=== PATIENT | female | born 1935 | race Caucasian/White ===

== ENCOUNTER → 2018-06-18 10:31 | Outpatient (CLI) | payer MEDICARE, OTHER, SELFPAY ==
[2018-06-18 11:55] LABS: Add Manual Diff / Slide Review NO; Basophils Absolute Auto 0 /uL (0-100); Basophils Percent Auto 0.6 % (0-2); Eosinophils Absolute Auto 100 /uL (0-450); Eosinophils Percent Auto 2.4 % (2-4); Hematocrit 38.8 % (36-46); Lymphocytes Absolute Auto 1800 /uL (1100-4500); Lymphocytes Percent Auto 28.7 % (25-40); Mean Corpuscular HGB Conc 33.6 % (30-36); Mean Corpuscular Hemoglobin 30.2 PG (26-34); Monocytes Absolute Auto 500 /uL (0-900); Monocytes Percent Auto 7.8 % (3-14); Neutrophils Absolute Auto 3700 /uL (1500-7000); Neutrophils Percent Auto 60.5 % (50-75); Platelet Count 206 X10^3/uL (150-400); Red Blood Cell Count 4.31 X10^6/uL (4.0-5.2); Red Cell Distribution Width 13.8 % (11.6-14.8); White Blood Cell Count 6.1 X10^3/uL (4.5-11.0)
[2018-06-18 12:46] LABS: Alanine Aminotransferase 37 IU/L (9-52); Albumin 4.2 g/dL (3.5-5.0); Albumin Globulin Ratio 1.5 (1.0-2.8); Alkaline Phosphatase 59 U/L (38-126); Aspartate Aminotransferase 24 IU/L (14-36); BUN Creatinine Ratio 34.3 (6-22); Bilirubin Total 0.6 mg/dL (0.2-1.3); Blood Urea Nitrogen 24 mg/dL (7-17); Calcium 10.2 mg/dL (8.4-10.2); Carbon Dioxide 27 mmol/L (22-32); Chloride 101 mmol/L (98-107); Cholesterol 208 mg/dL (140-199); Estimated Glomerular Filt Rate > 60.0 mL/min (>60); Globulin 2.8 g/dL (1.7-4.1); Glucose 90 mg/dL (80-110); HDL Cholesterol 71 mg/dL (40-60); HEMOLYSIS < 15 (0-50); LDL Cholesterol Calculated 126 mg/dL (<100); Sodium 138 mmol/L (137-145); Triglycerides 56 mg/dL (35-150)
[2018-06-18 13:18] LABS: Thyroid Stimulating Hormone 0.62 uIU/mL (0.47-4.68)
== END ==
PROVIDERS: PCP Physician Assistant; Visit Provider Physician Assistant
DX: I48.91 Unspecified atrial fibrillation (principal); E03.9 Hypothyroidism, unspecified; E78.5 Hyperlipidemia, unspecified
CPT/HCPCS: 36415; 80053; 80061; 84443; 85025

== ENCOUNTER 2018-07-26 07:21 | Emergency (ER) | payer MEDICARE, OTHER, SELFPAY ==
[2018-07-26 07:30] VITALS: BP 105/76; PULSE 73; RESP 18; TEMP 36.6; O2SAT 100
--- NOTE | 2018-07-26 07:31 | DI.RAD.S_ITS ---
PROCEDURE: XR CHEST 1V INDICATIONS: sob, lightheaded, afib ? paroxsymal TECHNIQUE: One view of the chest was acquired. COMPARISON: None. FINDINGS: Surgical changes and devices: None. Lungs and pleura: Lungs are clear. No pleural effusions or pneumothorax. Hyperinflation is seen. Mediastinum: Mediastinal contours appear normal. Heart size is enlarged. Bones and chest wall: No suspicious bony lesions. Overlying soft tissues appear unremarkable. IMPRESSION: No acute cardiopulmonary pathology. Hyperinflation. Dictated by: Chad Pitt M.D. on 07/26/2018 at 8:18 Approved by: Chad Pitt M.D. on 07/26/2018 at 8:19
--- NOTE | 2018-07-26 07:35 | ED_ITS ---
HPI - SOB/Dyspnea General Chief Complaint: Shortness of Breath/Dyspnea Stated Complaint: SOB Time Seen by Provider: 07/26/18 07:31 Source: patient, EMS and old records reviewed Mode of arrival: EMS Limitations: no limitations History of Present Illness This is an 82-year-old female who comes to the emergency department with complaint of shortness of breath and dizziness. She states started yesterday in the evening fairly sudden onset. Patient states she feels a little short of breath when she uses her inhaler does help. She states she has a history of asthma. She also felt lightheaded like she might pass out. She states she sort of see stars. Patient states that she has not passed out. She denies any chest pain or pressure. She denies any nausea, vomiting. She has not been stooling as regularly but has been having bowel movements. She states it seemed a little hard to urinate today. Patient states that she feels like there is a flush over her intermittently during these episodes and sort of tingly in her face. She does have known atrial fibrillation, there has been discussed about an ablation but she has never had 1 before. She is on Eliquis, flecainide. She is also on levothyroxine and metoprolol. She has not had any fevers that she is aware. She denies other surgeries. She does not smoke, she does not drink any alcohol. She lives alone. Yesterday she was visiting family and had returned home when this started. Patient's roofing technician is Dr. Chavira in [place], Mimi Aldana is her primary care provider. Related Data Home Medications Medication Instructions Recorded Confirmed [VITAMIN D3] 2,000 iu PO QDAY #0 09/18/16 05/11/18 aspirin 81 mg PO QDAY #0 09/18/16 05/11/18 metoprolol tartrate 25 mg PO BID #0 09/18/16 05/11/18 multivitamin [Multiple Vitamins] 1 tab PO QDAY #0 09/18/16 05/11/18 albuterol sulfate HFA 90 2 puff INHALATION BID PRN gram 09/29/17 05/11/18 mcg/actuation aerosol inhaler FISH OIL 1,300 MG See Rx Instructions .ROUTE .COMPLEX 05/11/18 05/11/18 flecainide 50 mg tablet See Rx Instructions PO Q12H 05/11/18 05/11/18 Previous Rx's Medication Instructions Recorded levothyroxine 100 mcg tablet 100 mcg PO QAM #90 tab 12/17/17 Allergies Allergy/AdvReac Type Severity Reaction Status Date / Time mold [MOLD] Allergy Intermediate LETHARGY Unverified 05/11/18 10:47 AND STUFFY HEAD horseradish Allergy Mild Itching Verified 05/11/18 10:47 naproxen [From Aleve] AdvReac Mild rash on Verified 05/11/18 10:47 face Akuinxa-Mfd-Set Reductase AdvReac Mild Nausea Verified 05/11/18 10:47 Inhibitor POLLEN Allergy Intermediate RUNNY Uncoded 05/11/18 10:47 NOSE, ITCHY WATERY EYES, LACK OF ENERGY DUST Allergy Mild HAY FEVER Uncoded 05/11/18 10:47 Review of Systems Review of Systems ROS Unobtainable: All systems reviewed & are unremarkable except as noted in HPI and below Constitutional Denies chills, Denies fever(s), Denies lethargy and Denies weakness Cardiovascular Denies chest pain, Denies diaphoresis, Denies syncope, Denies edema, Reports irregular heart rhythm (history of afib, does not feel currently), Denies leg edema, Reports lightheadedness, Reports dyspnea and Denies orthopnea Respiratory Denies chest congestion, Denies cough, Denies excessive phlegm production, Denies pain on inspiration, Denies pain with cough, Reports dyspnea and Denies wheezing Gastrointestinal Gastrointestinal: Denies abdominal pain, Denies change in bowel habits, Denies diarrhea, Reports nausea and Denies vomiting Genitourinary Denies hematuria, Denies urinary frequency, Denies dysuria, Denies flank pain, Reports urinary hesitancy and Denies urinary urgency Neurologic Denies syncope and Denies weakness Allergic/Immunologic Denies wheezing [facility] Medical History Essential hypertension (Chronic) Hyperlipidemia (Chronic) Hypothyroidism (Chronic) Age-related osteoporosis without current pathological fracture (Chronic 07/07/17) Asthma (Chronic Unknown) Atrial fibrillation (Chronic ~2004) Atrial flutter (Chronic Unknown) Cardiac arrhythmia (Chronic Unknown) Cataracts, bilateral (Chronic Unknown) Colon polyps (Chronic Unknown) Hemorrhoids (Chronic Unknown) Hyperlipemia (Chronic Unknown) Hypertension (Chronic Unknown) Hypothyroidism (Chronic Unknown) Multinodular thyroid (Chronic Unknown) Osteopenia (Chronic Unknown) Osteoporosis (Chronic ~2015) Urinary incontinence (Chronic Unknown) Vertigo (Chronic ~2012) Chickenpox (Resolved 1941) History of GI bleed (Resolved Unknown) History of cardioversion (Resolved 2008) Hx of multiple pulmonary nodules (Resolved Unknown) Measles (Resolved ~1941) Mumps (Resolved ~1941) Surgical History Fibroids (Resolved 1977) Family History Father No problems noted. Mother No problems noted. Brother No problems noted. Social History Smoking Status: Former smoker Tobacco: How many years used: 35 second hand exposure: Yes (When I was as a kid. My mom smoked.) alcohol intake: never substance use type: does not use Family History Father No problems noted. Mother No problems noted. Brother No problems noted. Social History Smoking Status: Former smoker Tobacco: How many years used: 35 second hand exposure: Yes (When I was as a kid. My mom smoked.) alcohol intake: never substance use type: does not use Exam Narrative Exam Narrative: GENERAL: Alert and oriented x three, well-nourished, well- appearing female in mild distress. HEENT: Head normocephalic, atraumatic, EOMI, pupils reactive, face symmetric, moist mucous membranes NECK: Supple, full range of motion CARDIOVASCULAR: Regular rate and rhythm without murmurs, rubs or gallops. No JVD. No edema bilateral lower extremities. RESPIRATORY: Breath sounds equal bilaterally, no wheezes rales or rhonchi. No tachypnea, no accessory muscle use. Patient speaks in full sentences. ABDOMEN: Soft, nontender. Normoactive bowel sounds all 4 quadrants. No guarding or rebound, rigidity, no mass : No CVA tenderness EXTREMITIES: Normal range of motion, no clubbing or edema. Neurovascularly intact NEUROLOGICAL: Cranial nerves II through XII grossly intact. Moving all extremities SKIN: Warm, dry, no petechiae, no rashes or lesions. Initial Vital Signs Initial Vital Signs: Vital Signs Temperature 97.8 F 07/26/18 07:30 Pulse Rate 73 07/26/18 07:30 Respiratory Rate 18 07/26/18 07:30 Blood Pressure 105/76 07/26/18 07:30 Pulse Oximetry 100 07/26/18 07:30 Course Orders Ordered: ED Orders 07/26/18 07:31 XR chest 1V Stat EKG-12 Lead Stat 07/26/18 07:40 B Type Natriuretic Peptide Stat Complete Blood Count AUTO DIFF Stat Comprehensive Metabolic Panel Stat Lipase Stat Partial Thromboplastin Time Stat Prothrombin Time INR Stat Troponin & CK Cardiac Panel Stat 07/26/18 08:53 EKG-12 Lead Stat Discontinued Medications Sodium Chloride (Normal Saline 0.9%) 1,000 mls @ 150 mls/hr IV CONT GREG Sodium Chloride (Normal Saline 0.9%) 1,000 mls @ 1,000 mls/hr IV BOLUS ONE Stop: 07/26/18 08:34 Last Infusion: 07/26/18 08:50 Dose: 0 mls/hr Admin: 07/26/18 08:17 Dose: 1,000 mls/hr Vital Signs - 8 hr 07/26/18 07:30 07/26/18 08:16 07/26/18 08:47 Temperature 97.8 F Pulse Rate 73 63 68 Respiratory Rate 18 23 Blood Pressure 105/76 Blood Pressure [Left Arm] 81/53 L Pulse Oximetry 100 99 98 07/26/18 09:25 Temperature Pulse Rate 65 Respiratory Rate 16 Blood Pressure Blood Pressure [Left Arm] 111/86 Pulse Oximetry 99 MDM - SOB/Dyspnea Lab Data Attestation: I reviewed the patient's lab results. Result diagrams: 07/26/18 07:40 07/26/18 07:40 Lab Results 07/26/18 07/26/18 07/26/18 Range/Units 07:40 07:40 07:40 WBC 4.9 (4.5-11.0) X10^3/uL RBC 4.64 (4.0-5.2) X10^6/uL Hgb 13.9 (12.0-16.0) g/dL Hct 41.4 (36-46) % MCV 89.4 (80-100) fL MCH 30.0 (26-34) PG MCHC 33.6 (30-36) % RDW 13.5 (11.6-14.8) % Plt Count 216 (150-400) X10^3/uL Neut % (Auto) 57.4 (50-75) % Lymph % (Auto) 31.5 (25-40) % [place] % (Auto) 8.0 (3-14) % Eos % (Auto) 2.1 (2-4) % Baso % (Auto) 1.0 (0-2) % Neut # (Auto) 2800 (2738-5749) /uL Lymph # (Auto) 1600 (6554-1993) /uL [place] # (Auto) 400 (0-900) /uL Eos # (Auto) 100 (0-450) /uL Baso # (Auto) 100 (0-100) /uL PT 14.2 H (10.1-12.7) SECONDS INR 1.2 (0.9-1.3) APTT 31 (26.4-36.2) SECONDS Sodium 138 (137-145) mmol/L Potassium 4.3 (3.4-5.1) mmol/L Chloride 105 (98-107) mmol/L Carbon Dioxide 26 (22-32) mmol/L BUN 30 H (7-17) mg/dL Creatinine 0.70 (0.52-1.04) mg/dL Estimated GFR > 60.0 (>60) mL/min BUN/Creatinine Ratio 42.9 H (6-22) Glucose 119 H (80-110) mg/dL Calcium 9.7 (8.4-10.2) mg/dL Total Bilirubin 0.5 (0.2-1.3) mg/dL AST 25 (14-36) IU/L ALT 34 (9-52) IU/L Alkaline Phosphatase 57 (38-126) U/L Total Creatine Kinase 42 (30-135) U/L CK-MB (CK-2) TNP CK-MB (CK-2) Rel Index TNP Troponin I < 0.012 (0.01-0.034) ng/mL B-Natriuretic Peptide 154 H (<100) Total Protein 6.7 (6.3-8.2) g/dL Albumin 3.9 (3.5-5.0) g/dL Globulin 2.8 (1.7-4.1) g/dL Albumin/Globulin Ratio 1.4 (1.0-2.8) Lipase 66 (23-300) U/L Imaging Data Chest x-ray: Attestation: I personally reviewed and interpreted this imaging study as follows: My impression: nap. cardiomegaly, no infiltrate, normal mediastinum, no fracture, no free air under diaphragm. No prior's for comparison. ECG Data Attestation: I personally reviewed and interpreted this ECG as follows: Prior ECG tracings: available for review Interpretation: Patient has sinus complexes but also appears to have episodes of AFib on her EKG. She has appears to be a right bundle branch block, a ventricular rate of 88, APR interval of 217 a QRS of 164 and QTC of 470. Complexes of appears similar in ST segments as prior from 08/29/2013 except in lead V3. EKG 2. Shows appears to be a sinus rhythm although not P-wave in every QRS but is a regular rhythm. Rate is 60 QRS is 166 and QTC is 475 with a right bundle branch block which is consistent with prior EKGs. MDM Narrative Medical decision making narrative: While I am in the room patient's heart rate has bouts from the 120s back to the 70s and she states she felt lightheaded during this episode. I suspect she is having paroxysmal atrial fibrillation with rapid ventricular response. Patient did take all of her regular medications this morning just prior to coming to the ER. For the rest of her stay in the department she is maintaining in the 60s with what appears to be on tele sinus rhythm. We did ambulate patient heart rate only got up to 90 at any point. She states that she has been feeling better since here and did not have any issues with ambulation. She states she does sometimes take extra half of flecainide. Repeat EKG was performed. Contacted Dr. Chavira's he has office and spoke with Dr. Serna patient is an 150 mg of flecainide twice daily which is the maximum dose. He recommends no new medication changes right now is patient seems to have converted to a sinus rhythm is able to ambulate without any major changes. She is feeling much better. Lab work does not show any major changes in his chest x-ray. She is to call the office for follow-up this week for any possible medication changes and patient is already being evaluated for possible ablation. Discussed with patient she is comfortable with the plan she has very mild symptoms can contact Cardiology, if she is having recurrent or worsening symptoms she is to come back to the ED. Discharge Plan Departure Patient Disposition: Home Clinical Impression: AF (paroxysmal atrial fibrillation) Discharge Date/Time: 07/26/18 09:31 Interventions: ED Discharge Assessment Last Done: 07/26/18 09:26 Instructions: DI for Atrial Fibrillation Activity Restrictions/Additional Instructions: Follow-up with your roofing technician this week recheck and potentially changing your medications. Continue your home medications as prescribed. Return to the emergency department for persistent or recurrent symptoms especially if you're feeling chest pain, shortness of breath, lightheadedness or passing-out, persistent vomiting, abdominal pain, swelling in your lower extremity or other new or concerning symptoms. Prescriptions: No Action albuterol sulfate [Ventolin HFA] 90 mcg/actuation HFA aerosol inhaler 2 puff INHALATION BID PRNRF: 0 flecainide 50 mg tablet See Patient Comments PO Q12H RF: 0 FISH OIL 1,300 MG See Patient Comments .ROUTE .COMPLEX RF: 0 [VITAMIN D3] 2,000 iu PO QDAY Qty: 0 RF: 0 metoprolol tartrate 25 MG tablet 25 mg PO BID Qty: 0 RF: 0 aspirin 81 MG tablet,delayed release (DR/EC) 81 mg PO QDAY Qty: 0 RF: 0 multivitamin [Multiple Vitamins] 1 EACH tablet 1 tab PO QDAY Qty: 0 RF: 0 levothyroxine 100 mcg tablet 100 mcg PO QAM Qty: 90 RF: 2 Referrals: Genia Aldana PA-C [Primary Care Provider] - Luis Ivan MD [Non-Staff] -
[2018-07-26 07:54] LABS: Add Manual Diff / Slide Review NO; Basophils Absolute Auto 100 /uL (0-100); Eosinophils Absolute Auto 100 /uL (0-450); Eosinophils Percent Auto 2.1 % (2-4); Hematocrit 41.4 % (36-46); Hemoglobin 13.9 g/dL (12.0-16.0); Lymphocytes Absolute Auto 1600 /uL (1100-4500); Lymphocytes Percent Auto 31.5 % (25-40); Mean Corpuscular HGB Conc 33.6 % (30-36); Mean Corpuscular Volume 89.4 fL (80-100); Monocytes Absolute Auto 400 /uL (0-900); Neutrophils Absolute Auto 2800 /uL (1500-7000); Neutrophils Percent Auto 57.4 % (50-75); Platelet Count 216 X10^3/uL (150-400); Red Blood Cell Count 4.64 X10^6/uL (4.0-5.2); Red Cell Distribution Width 13.5 % (11.6-14.8); White Blood Cell Count 4.9 X10^3/uL (4.5-11.0)
--- NOTE | 2018-07-26 07:57 | PC.NURSE ---
Patient reports feeling whoozy but denies syncopal episode. Patient denies chest pain and SOB. States she just feels like she can't get a deep breath. Patient has been evaluated and had discussion with sustainable design consultant for possible ablation. Patient has taken all her normal morning medications. Patient states this will happen occasionally but never last this long
[2018-07-26 08:03] LABS: INR 1.2 (0.9-1.3); Prothrombin Time 14.2 SECONDS (10.1-12.7)
[2018-07-26 08:04] LABS: Alanine Aminotransferase 34 IU/L (9-52); Albumin 3.9 g/dL (3.5-5.0); Albumin Globulin Ratio 1.4 (1.0-2.8); Alkaline Phosphatase 57 U/L (38-126); Aspartate Aminotransferase 25 IU/L (14-36); BUN Creatinine Ratio 42.9 (6-22); Bilirubin Total 0.5 mg/dL (0.2-1.3); Blood Urea Nitrogen 30 mg/dL (7-17); Calcium 9.7 mg/dL (8.4-10.2); Carbon Dioxide 26 mmol/L (22-32); Chloride 105 mmol/L (98-107); Creatine Kinase 42 U/L (30-135); Estimated Glomerular Filt Rate > 60.0 mL/min (>60); Globulin 2.8 g/dL (1.7-4.1); Glucose 119 mg/dL (80-110); HEMOLYSIS 22 (0-50); Lipase 66 U/L (23-300); Potassium 4.3 mmol/L (3.4-5.1); Sodium 138 mmol/L (137-145); Total Protein 6.7 g/dL (6.3-8.2)
[2018-07-26 08:05] LABS: PTT Partial Thromboplastin Tim 31 SECONDS (26.4-36.2)
[2018-07-26 08:15] LABS: B Type Natriuretic Peptide 154 (<100); Troponin I < 0.012 ng/mL (0.01-0.034)
[2018-07-26 08:16] VITALS: BP 81/53; PULSE 63; RESP 23; O2SAT 99
[2018-07-26] MEDS: SODIUM CHLORIDE 0.9% 1,000 ML 1000 ML IV (08:17)
[2018-07-26 08:47] VITALS: PULSE 68; O2SAT 98
--- NOTE | 2018-07-26 09:21 | PC.NURSE ---
Contacted Kwesi patients neighbor. He will be down shortly to pickup patient
[2018-07-26 09:25] VITALS: BP 111/86; PULSE 65; RESP 16; O2SAT 99
== END 2018-07-26 09:31 | disposition home or self-care (01) ==
LOC: ED 09:13
PROVIDERS: Emergency Provider Emergency Medicine; PCP Physician Assistant
DX: I48.0 Paroxysmal atrial fibrillation (principal); R42 Dizziness and giddiness; R06.02 Shortness of breath
CPT/HCPCS: 36591; 71045; 80053; 82550; 83690; 83880; 84484; 85025; 85610; 85730; 93005; 96360; 99283; 99285

== ENCOUNTER → 2018-08-27 13:26 | Outpatient (CLI) | payer MEDICARE, OTHER, SELFPAY ==
--- NOTE | 2018-08-27 | DI.MG.S_ITS ---
BILATERAL DIGITAL SCREENING MAMMOGRAM 3D/2D WITH CAD: 08/27/2018 CLINICAL: Routine screening. Comparison is made to exams dated: 07/01/2017 mammogram - [facility], 06/30/2016 mammogram, and 04/12/2014 mammogram - [facility]. The tissue of both breasts is extremely dense, which lowers the sensitivity of mammography. Current study was also evaluated with a Computer Aided Detection (CAD) system. There is a mole marker on the right breast. No significant masses, calcifications, or other findings are seen in either breast. There has been no significant interval change. IMPRESSION: NEGATIVE There is no mammographic evidence of malignancy. A 1 year screening mammogram is recommended. This exam was interpreted at Station ID: [id number]. NOTE: For mammograms, a report in lay terms will be sent to the patient. Approximately 15% of breast malignancies will not be visualized mammographically. In the management of a palpable breast mass, a negative mammogram must not discourage biopsy of a clinically suspicious lesion. Electronically Signed By: Ariel aguila/jose:08/27/2018 18:56:32 letter sent: Normal Exam ACR BI-RADS Category 1: Negative [id number]
== END ==
PROVIDERS: PCP Physician Assistant; Visit Provider Physician Assistant
DX: Z12.31 Encounter for screening mammogram for malignant neoplasm of breast (principal)
CPT/HCPCS: 77063; 77067

== ENCOUNTER 2018-12-28 18:30 | Emergency (ER) | payer MEDICARE, OTHER, SELFPAY ==
[2018-12-28 18:54] VITALS: BP 129/83; PULSE 92; RESP 15; TEMP 36.6; O2SAT 99
--- NOTE | 2018-12-28 19:01 | ED.ARRPALP ---
HPI - Arrhythmia/Palpitations General Chief Complaint: Arrhythmia/Palpitations Stated Complaint: bit of a fast heartrate Time Seen by Provider: 12/28/18 18:39 Source: patient Mode of arrival: Ambulatory Limitations: no limitations History of Present Illness HPI narrative: The patient has been feeling like she is tachycardic the last 2 days, heart rate in the 104-106 range. She has a history of AFib, she underwent ablation earlier this year. She takes flecainide and metoprolol for rhythm control. Her international manager did tell her she is back in atrial fib. She is anticoagulated with Eliquis. With this tachycardia she is feeling no dyspnea, or chest pain. She took her evening medication doses prior to arrival. She denies recent illness. She has no associated orthopnea or dyspnea. She is feeling improved since arrival to the ER. Related Data Home Medications Medication Instructions Recorded Confirmed [VITAMIN D3] 2,000 iu PO QDAY #0 09/18/16 05/11/18 aspirin 81 mg PO QDAY #0 09/18/16 05/11/18 metoprolol tartrate 25 mg PO BID #0 09/18/16 05/11/18 multivitamin [Multiple Vitamins] 1 tab PO QDAY #0 09/18/16 05/11/18 albuterol sulfate 90 mcg/actuation 2 puff INHALATION BID PRN gram 09/29/17 05/11/18 aerosol inhaler FISH OIL 1,300 MG See Rx Instructions .ROUTE .COMPLEX 05/11/18 05/11/18 flecainide 50 mg tablet See Rx Instructions PO Q12H 05/11/18 05/11/18 Previous Rx's Medication Instructions Recorded levothyroxine 100 mcg tablet 100 mcg PO QAM #90 tab 09/03/18 Allergies Allergy/AdvReac Type Severity Reaction Status Date / Time mold [MOLD] Allergy Intermediate LETHARGY Unverified 05/11/18 10:47 AND STUFFY HEAD horseradish Allergy Mild Itching Verified 05/11/18 10:47 naproxen [From Aleve] AdvReac Mild rash on Verified 05/11/18 10:47 face [id number]-[id number]-[id number] Reductase AdvReac Mild Nausea Verified 05/11/18 10:47 Inhibitor POLLEN Allergy Intermediate RUNNY Uncoded 05/11/18 10:47 NOSE, ITCHY WATERY EYES, LACK OF ENERGY DUST Allergy Mild HAY FEVER Uncoded 05/11/18 10:47 Review of Systems Review of Systems ROS Unobtainable: All systems reviewed & are unremarkable except as noted in HPI and below Constitutional Constitutional: Denies chills, Denies fever(s), Denies lethargy and Denies weakness ENT Ears, Nose, Mouth, and Throat: Denies change in voice, Denies vertigo, Denies dizziness, Denies neck pain and Denies sore throat Cardiovascular Cardiovascular: Denies chest pain, Reports irregular heart rhythm, Denies lightheadedness, Reports palpitations, Denies dyspnea and Denies orthopnea Respiratory Respiratory: Denies cough, Denies dyspnea and Denies wheezing Gastrointestinal Gastrointestinal: Denies abdominal pain, Denies change in bowel habits, Denies diarrhea, Denies nausea and Denies vomiting Musculoskeletal Musculoskeletal: Denies back pain and Denies neck pain Comments: No lower extremity edema Integumentary/Breasts Skin/Breast: Denies pruritus, Denies erythema, Denies rash and Denies wounds Neurologic Neurologic: Denies confusion, Denies vertigo, Denies dizziness and Denies weakness Psychiatric Psychiatric: Denies confusion Endocrine Endocrine: Reports palpitations Allergic/Immunologic Allergic/Immunologic: Denies wheezing [facility] Medical History Age-related osteoporosis without current pathological fracture (Chronic 07/07/17) Asthma (Chronic Unknown) Atrial fibrillation (Chronic ~2004) Atrial flutter (Chronic Unknown) Cardiac arrhythmia (Chronic Unknown) Cataracts, bilateral (Chronic Unknown) Chickenpox (Resolved 1941) Colon polyps (Chronic Unknown) Essential hypertension (Chronic) Hemorrhoids (Chronic Unknown) History of cardioversion (Resolved 2008) History of GI bleed (Resolved Unknown) Hx of multiple pulmonary nodules (Resolved Unknown) Hyperlipemia (Chronic Unknown) Hyperlipidemia (Chronic) Hypertension (Chronic Unknown) Hypothyroidism (Chronic) Hypothyroidism (Chronic Unknown) Measles (Resolved ~194) Multinodular thyroid (Chronic Unknown) Mumps (Resolved ~194) Osteopenia (Chronic Unknown) Osteoporosis (Chronic ~2014) Urinary incontinence (Chronic Unknown) Vertigo (Chronic ~2012) Surgical History (Updated 12/29/18 @ 03:19 by Taran Townsend MD) Fibroids (Resolved 1977) History of cardiac radiofrequency ablation (Acute) Family History Father No problems noted. Mother No problems noted. Brother No problems noted. Social History Smoking Status: Former smoker Tobacco: How many years used: 35 second hand exposure: Yes (When I was as a kid. My mom smoked.) alcohol intake: never substance use type: does not use Family History Father No problems noted. Mother No problems noted. Brother No problems noted. Social History Smoking Status: Former smoker Tobacco: How many years used: 35 second hand exposure: Yes (When I was as a kid. My mom smoked.) alcohol intake: never substance use type: does not use Exam Initial Vital Signs Initial Vital Signs: Vital Signs Temperature 97.8 F 12/28/18 18:54 Pulse Rate 92 H 12/28/18 18:54 Respiratory Rate 15 12/28/18 18:54 Blood Pressure 129/83 12/28/18 18:54 Pulse Oximetry 99 12/28/18 18:54 Const General: cooperative and well developed Nutritional Appearance: well nourished Orientation: alert, awake and oriented x3 HENMT Head: normocephalic and atraumatic Mouth: oral mucosae normal and moist mucous membranes Throat: tonsils normal and posterior oropharynx abnormal Eyes Conjunctivae: conjunctivae normal Cornea: corneas normal Pupils: PERRL Neck Neck: No JVD Chest Chest: normal inspection of the chest Resp Effort & Inspection: normal respiratory effort, able to speak in complete sentences, no respiratory distress and no use of accessory muscles Auscultation: clear to auscultation bilaterally, no rales, no rhonchi and no wheezes Cardio Rate: regular rate Rhythm: regular rhythm Heart Sounds: S1 normal, S2 normal, no click, no gallops, no murmurs and no rubs Pulses: normal peripheral pulses GI Inspection: non-distended Palpation: soft, no hepatosplenomegaly, No guarding and No tender Auscultation: normal bowel sounds Skin General: no rashes or lesions noted Neuro General: alert, oriented x3, gait normal and no focal motor deficits Speech: speech normal Extrem General: full ROM and no clubbing, cyanosis or edema Course Course Course Narrative: The patient appears to have converted from AFib to normal sinus rhythm revealed after arrival. Initial EKG shows AFib, but the initial monitoring when I enter the room is normal sinus rhythm. A repeat EKG reveals normal sinus rhythm. She knew she was tachycardic, but was otherwise asymptomatic. With that in mind, she does feel improved. She is discharged to follow up with her international manager. She is directed cough or international manager tomorrow for appointment. Orders Ordered: ED Orders 12/28/18 18:37 EKG-12 Lead Routine EKG-12 Lead Stat 12/28/18 18:50 Complete Blood Count AUTO DIFF Stat Comprehensive Metabolic Panel Stat Troponin & CK Cardiac Panel Stat Discontinued Medications Metoprolol Tartrate (Lopressor) 25 mg PO NOW ONE Stop: 12/28/18 20:31 Vital Signs Vital signs: Vital Signs - 8 hr 12/28/18 21:02 Pulse Rate 94 H Respiratory Rate 20 Blood Pressure [Right Arm] 107/60 Pulse Oximetry 97 MDM - Arrhythmia/Palpitations Lab Data Result diagrams: 12/28/18 18:50 12/28/18 18:50 Labs: Lab Results 12/28/18 12/28/18 Range/Units 18:50 18:50 WBC 6.3 (4.5-11.0) X10^3/uL RBC 4.48 (4.0-5.2) X10^6/uL Hgb 13.6 (12.0-16.0) g/dL Hct 39.8 (36-46) % MCV 88.8 (80-100) fL MCH 30.3 (26-34) PG MCHC 34.1 (30-36) % RDW 13.8 (11.6-14.8) % Plt Count 177 (150-400) X10^3/uL Neut % (Auto) 67.3 (50-75) % Lymph % (Auto) 20.4 L (25-40) % [place] % (Auto) 10.2 (3-14) % Eos % (Auto) 1.2 L (2-4) % Baso % (Auto) 0.9 (0-2) % Neut # (Auto) 4200 (2551-6030) /uL Lymph # (Auto) 1300 (6082-8032) /uL [place] # (Auto) 600 (0-900) /uL Eos # (Auto) 100 (0-450) /uL Baso # (Auto) 100 (0-100) /uL Sodium 134 L (137-145) mmol/L Potassium 4.4 (3.4-5.1) mmol/L Chloride 100 (98-107) mmol/L Carbon Dioxide 25 (22-32) mmol/L BUN 24 H (7-17) mg/dL Creatinine 0.60 (0.52-1.04) mg/dL Estimated GFR > 60.0 (>60) mL/min BUN/Creatinine Ratio 40.0 H (6-22) Glucose 98 (80-110) mg/dL Calcium 9.9 (8.4-10.2) mg/dL Total Bilirubin 0.5 (0.2-1.3) mg/dL AST 28 (14-36) IU/L ALT 67 H (9-52) IU/L Alkaline Phosphatase 81 (38-126) U/L Total Creatine Kinase 49 (30-135) U/L CK-MB (CK-2) TNP CK-MB (CK-2) Rel Index TNP Troponin I < 0.012 (0.01-0.034) ng/mL Total Protein 7.1 (6.3-8.2) g/dL Albumin 4.1 (3.5-5.0) g/dL Globulin 3.0 (1.7-4.1) g/dL Albumin/Globulin Ratio 1.4 (1.0-2.8) ECG Data Attestation: I personally reviewed and interpreted this ECG as follows: Interpretation: EKG 1: AFib rate 91 beats per minute. Right axis. RBBB. No acute ST T wave changes. EKG: Normal sinus rhythm rate 90 beats per minute. RBBB. No acute ST T wave changes. No ectopy. Discharge Plan Departure Patient Disposition: Home Clinical Impression: Intermittent atrial fibrillation Discharge Date/Time: 12/28/18 21:12 Instructions: DI for Atrial Fibrillation Activity Restrictions/Additional Instructions: Continue her current medications. Contact her international manager arrange follow-up. Return to the ER for issues with her heart rate, chest pain or difficulty breathing. Prescriptions: No Action albuterol sulfate [Ventolin HFA] 90 mcg/actuation HFA aerosol inhaler 2 puff INHALATION BID PRNRF: 0 flecainide 50 mg tablet See Rx Instructions PO Q12H RF: 0 FISH OIL 1,300 MG See Rx Instructions .ROUTE .COMPLEX RF: 0 [VITAMIN D3] 2,000 iu PO QDAY Qty: 0 RF: 0 metoprolol tartrate 25 MG tablet 25 mg PO BID Qty: 0 RF: 0 aspirin 81 MG tablet,delayed release (DR/EC) 81 mg PO QDAY Qty: 0 RF: 0 multivitamin [Multiple Vitamins] 1 EACH tablet 1 tab PO QDAY Qty: 0 RF: 0 levothyroxine 100 mcg tablet 100 mcg PO QAM Qty: 90 RF: 0 Referrals: Stacey Ponce PA-C [Primary Care Provider] -
[2018-12-28 19:12] LABS: Add Manual Diff / Slide Review NO; Basophils Absolute Auto 100 /uL (0-100); Basophils Percent Auto 0.9 % (0-2); Eosinophils Absolute Auto 100 /uL (0-450); Eosinophils Percent Auto 1.2 % (2-4); Hematocrit 39.8 % (36-46); Hemoglobin 13.6 g/dL (12.0-16.0); Lymphocytes Absolute Auto 1300 /uL (1100-4500); Lymphocytes Percent Auto 20.4 % (25-40); Mean Corpuscular HGB Conc 34.1 % (30-36); Mean Corpuscular Hemoglobin 30.3 PG (26-34); Mean Corpuscular Volume 88.8 fL (80-100); Monocytes Absolute Auto 600 /uL (0-900); Monocytes Percent Auto 10.2 % (3-14); Neutrophils Absolute Auto 4200 /uL (1500-7000); Neutrophils Percent Auto 67.3 % (50-75); Platelet Count 177 X10^3/uL (150-400); Red Blood Cell Count 4.48 X10^6/uL (4.0-5.2); Red Cell Distribution Width 13.8 % (11.6-14.8); White Blood Cell Count 6.3 X10^3/uL (4.5-11.0)
[2018-12-28 19:18] LABS: Alanine Aminotransferase 67 IU/L (9-52); Albumin 4.1 g/dL (3.5-5.0); Albumin Globulin Ratio 1.4 (1.0-2.8); Alkaline Phosphatase 81 U/L (38-126); Aspartate Aminotransferase 28 IU/L (14-36); Bilirubin Total 0.5 mg/dL (0.2-1.3); Blood Urea Nitrogen 24 mg/dL (7-17); Calcium 9.9 mg/dL (8.4-10.2); Carbon Dioxide 25 mmol/L (22-32); Chloride 100 mmol/L (98-107); Creatine Kinase 49 U/L (30-135); Estimated Glomerular Filt Rate > 60.0 mL/min (>60); Glucose 98 mg/dL (80-110); HEMOLYSIS < 15 (0-50); Potassium 4.4 mmol/L (3.4-5.1); Sodium 134 mmol/L (137-145); Total Protein 7.1 g/dL (6.3-8.2)
[2018-12-28 19:32] LABS: Troponin I < 0.012 ng/mL (0.01-0.034)
[2018-12-28 21:02] VITALS: BP 107/60; PULSE 94; RESP 20; O2SAT 97
== END 2018-12-28 21:12 | disposition home or self-care (01) ==
PROVIDERS: Emergency Provider Emergency Medicine; Family Provider Physician Assistant; PCP Physician Assistant
DX: I48.0 Paroxysmal atrial fibrillation (principal)
CPT/HCPCS: 36415; 80053; 82550; 84484; 85025; 93005; 93010; 93041; 99283; 99284

== ENCOUNTER → 2019-01-27 08:18 | Outpatient (CLI) | payer MEDICARE, OTHER, SELFPAY ==
[2019-01-27 08:52] LABS: INR 1.5 (0.9-1.3)
[2019-01-27 09:02] LABS: Alanine Aminotransferase 55 IU/L (9-52); Albumin 4.1 g/dL (3.5-5.0); Albumin Globulin Ratio 1.4 (1.0-2.8); Alkaline Phosphatase 63 U/L (38-126); Aspartate Aminotransferase 32 IU/L (14-36); Bilirubin Total 0.8 mg/dL (0.2-1.3); Bilirubin Unconjugated 0.8 mg/dL (0.0-1.1); Globulin 2.9 g/dL (1.7-4.1); HEMOLYSIS < 15 (0-50); Lactate Dehydrogenase 398 U/L (313-618)
== END ==
PROVIDERS: PCP Physician Assistant; Visit Provider Physician Assistant
DX: R74.0 Nonspecific elevation of levels of transaminase and lactic acid dehydrogenase [LDH] (principal); R79.1 Abnormal coagulation profile; I48.20 Chronic atrial fibrillation, unspecified
CPT/HCPCS: 36415; 80076; 83615; 85610

== ENCOUNTER → 2019-02-08 12:51 | Outpatient (CLI) | payer MEDICARE, OTHER, SELFPAY ==
--- NOTE | 2019-02-08 12:54 | DI.US.S_ITS ---
PROCEDURE: US ABDOMEN COMPLETE INDICATIONS: ELEVATED ALT TECHNIQUE: Real-time scanning was performed of the abdominal and retroperitoneal organs, with image documentation. COMPARISON: None. FINDINGS: Liver: Liver is normal in size and homogeneous in echotexture. Gallbladder: Nondilated. No stones or sludge. Normal gallbladder wall thickness. No pericholecystic fluid. Negative sonographic Bermudez's sign. Biliary ducts: Intrahepatic bile ducts are non-dilated. Extrahepatic bile duct caliber measures 6 mm. Normal is 6-7 mm or less in diameter, or 10 mm or less post-cholecystectomy. Pancreas: Visualized portions of the pancreas are sonographically normal. Spleen: Spleen is normal in size and homogeneous in echotexture. Kidneys: Kidneys are normal in size and echotexture. Right kidney measures 11 cm long; left kidney measures 12.8 cm long. No hydronephrosis or nephrolithiasis. No solid masses. Aorta: Visualized aorta is normal in caliber at less than 3 cm. Iliacs: Proximal common iliac arteries are normal in caliber at less than 2.5 cm. IVC: Intrahepatic inferior vena cava is patent. Miscellaneous: No free abdominal fluid. IMPRESSION: Sonographic appearance of the liver is normal. No biliary ductal dilatation. No gallstones. Dictated by: Saurav Moctezuma M.D. on 02/08/2019 at 15:55 Approved by: Saurav Moctezuma M.D. on 02/08/2019 at 15:58
== END ==
PROVIDERS: PCP Physician Assistant; Visit Provider Physician Assistant
DX: R74.0 Nonspecific elevation of levels of transaminase and lactic acid dehydrogenase [LDH] (principal)
CPT/HCPCS: 76700

== ENCOUNTER → 2019-05-10 10:58 | Outpatient (CLI) | payer MEDICARE, OTHER, SELFPAY ==
--- NOTE | 2019-05-10 12:58 | DIET.PN ---
Dietary Progress Note Assessment: Ms. Yates is an 83 yof referred for nutrition counseling for chronic a-fib, age related osteoporosis without pathological fracture. She reports an ablation in September. Since then she has been trying to follow a heart healthy diet while keeping track of her electrolyte balance. She has recently started walking at the [facility] [facility] and states she would like to start a yoga class. She is very concerned with recent weight gain and believes it is due to eating more starch and high carb foods to consume more fiber and less cholesterol. HT: 69in WT: 175lb BMI: 25.8 Labs: Na: 134 L Chol: 208 LDL: 126 HDL: 71 TR K: 4.4 Chl: 100 Food Recall: B: NF yogurt, 8 prunes, banana, whole milk latte L: 4 oz chicken w/ salad or ham/troy sliders with cheese D: [place] iraj w/ broccoli or Annies Mac n Cheese, peanut butter, greens Sn: nuts, OJ Exercise: walking 30 min most days Nutrition Diagnosis: Food- and nutrition-related knowledge deficit r/t lack of prior nutrition education aeb pt diet recall, verbalizes difficulty applying food- and nutrition related information. Interventions: 1. Discussed heart healthy nutrition therapy including eating more whole grains, fruit (2-3/day), vegetables (>3 servings), and limiting sat fats and cholesterol (<200 mg) 2. Reviewed sources of electrolytes including potassium, magnesium, phosphorus and food sources. 3. Provided information on limiting sodium to 2000 mg /day and food sources. 4. Recommended limiting starchy foods as patient has increased these foods in while trying to limit many meat products. 5. Discussed the hunger scale in assessing when to eat and when to stop eating. 6. Discussed importance of exercise including cardiovascular exercise as well as resistance training for bone health. Diet Order: heart healthy Monitoring/Evaluations: Pt with good understanding. Excellent compliance expected. Pt will follow up with new labs as needed.
== END ==
PROVIDERS: PCP Physician Assistant; Referring Provider Physician Assistant; Visit Provider Physician Assistant
DX: I48.20 Chronic atrial fibrillation, unspecified (principal); M81.0 Age-related osteoporosis without current pathological fracture; Z71.3 Dietary counseling and surveillance; Z68.25 Body mass index [BMI] 25.0-25.9, adult
CPT/HCPCS: 97802

== ENCOUNTER 2019-05-11 08:25 | Day surgery (SDC) | payer MEDICARE, OTHER, SELFPAY ==
--- NOTE | 2019-05-10 19:18 | PM.PREOP ---
Pre-operative Note Interval Note History & Physical reviewed/Exam performed by Physician: Yes Changes to H&P: No H&P completed within 30 days and has changed as indicated here:: Patient is in sinus rhythm with history of atrial fibrillation
--- NOTE | 2019-05-11 08:15 | P.OP_ITS ---
Operative Date/Time/Diagnoses Date of procedure: 05/11/19 Time of procedure: 09:45 Procedure & Clinicians Procedure: Preoperative diagnoses: 1. Right nuclear sclerotic and cortical cataract. 2. 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 4. Atrial fibrillation on Eliquis. 5. Hypertension. 6. Benign right lid lesion. Postoperative diagnoses: 1. Cataract removed by phacoemulsification with placement of posterior chamber intraocular lens. Procedure: Phacoemulsification with posterior chamber intraocular lens implant Surgeon: Sasha Kennedy MD Complications: None Specimen: None Implant: Blood loss: None Anesthesia: Retrobulbar with monitored standby Description of procedure: Patient presents with a complaint of decreased vision due to cataract which is affecting activities of daily living. She has active exudative macular degeneration left eye and is undergoing intravitreal injections monthly. This right eye is her best vision eye and she is having difficulty navigating and doing activities of daily living. This eye is high risk to become exudative as well and she understands. The patient wants surgery to improve vision. The patient was taken to the operating room and given IV sedation. She has a very deep set orbit. A retrobulbar block consisting of 6 cc of 2% xylocaine without epinephrine mixed half and half with 0.5% Marcaine with 1 cc of hyaluronidase added is placed between the medial and lateral 1/3 of the inferior orbital rim. The eye is manually massaged for 30 sec, prepped using Betadine solution, and draped in the usual sterile fashion. Temporal approach was made, a 1 mm side-port incision was made 90? from the proposed clear corneal incision position. Phenylephrine 1.5% mixed with 1% xylocaine 0.2 cc was placed into the anterior chamber. Viscoat followed by Healo n was then placed. A 2.6 mm clear incision with a 2.6 mm blade was placed. A 360 degree capsulorrhexis style capsulotomy was then performed with a cystitome needle on a Amminexon. Hydrodelineation and hydrodissection were performed. The phacoemulsification unit is introduced, and sculpting notice used to groove the central lens. It is then removed in chopping mode. Epi nucleus is removed with epinuclear mode and irrigation aspiration was used to remove the peripheral cortex. The posterior capsule is polished. The intraocular lens is selected, inspected, power confirmed, and placed in the posterior chamber. The wound was stromally hydrated and tested for leaks, there was none and it was left sutureless. Vigamox 0.1 cc was placed into the anterior chamber. Kenalog 0.2 cc was placed in the superior subconjunctival space. A drop of antibiotic and was placed and the eye was patched and shielded. A bandage contact lens was placed to ensure comfort of the cornea. The patient was stable and returned to the recovery room in excellent condition. Dictated by: Sasha Kennedy MD Copy to: [facility] Same procedure as scheduled: Yes
[2019-05-11] MEDS: PROPARACAINE 0.5% OPHTH SOL 2 DROPS EYE-OP (08:47)
[2019-05-11 08:48] VITALS: BP 117/79; PULSE 84; RESP 15; TEMP 36.1; O2SAT 97; BMI 26.2
[2019-05-11] MEDS: CATARACT EYE COMPOUND (10 DROPS/SYRINGE) 3 DROPS EYE-OP (08:57)
--- NOTE | 2019-05-11 09:58 | SUR.OPER ---
Supine on Padded OR bed, head on pillow, safety belt at thigh, arms secured on padded arm boards at <90 degrees abduction. Bump under right buttock. Legs uncrossed with pillow under knees, gel pad to heels, tape over blanket to lower legs.
[2019-05-11] MEDS: ERYTHROMYCIN OPHTH 1 GM OINT 1 APPLIC EYE-RIGHT (10:01)
[2019-05-11] MEDS: LIDOCAINE 2% 4 ML, BUPIVACAINE 0.5% (PF) 4 ML, HYALURONIDASE 150 UNIT INJ (10:02)
[2019-05-11] MEDS: CHONDROIDTIN/SOD HYALURONATE 1.05 ML SYRINGE INTRAOCULA (10:02)
[2019-05-11] MEDS: HYALURONATE SODIUM 10 MG/ML SYRINGE INJ (10:02)
[2019-05-11] MEDS: BALANCED SALT IRRIG SOLN NO.2 500 ML, EPINEPHrine 1 MG IRR (10:04)
[2019-05-11] MEDS: TRIAMCINOLONE 50 MG/5 ML VIAL INJ (10:05)
[2019-05-11] MEDS: PHENYLEPHRINE/LIDOCAINE VIAL (OR) 0.2 ML EYE-OP (10:06)
[2019-05-11] MEDS: MOXIFLOXACIN INJ 5 MG/ML VIAL EYE-OP (10:06)
[2019-05-11 10:36] VITALS: BP 103/72; PULSE 84; RESP 15; TEMP 36.6; O2SAT 96
== END 2019-05-11 10:49 | disposition home or self-care (01) ==
LOC: OR 08:28
PROVIDERS: PCP Physician Assistant; Referring Provider Ophthalmology; Visit Provider Ophthalmology
PROC: (CPT 66984; principal; 2019-05-11 09:45)
DX: H25.811 Combined forms of age-related cataract, right eye (principal); H35.3111 Nonexudative age-related macular degeneration, right eye, early dry stage; D23.111 Other benign neoplasm of skin of right upper eyelid, including canthus
CPT/HCPCS: 66984; J0171; J3301; J3470

== ENCOUNTER → 2019-06-22 08:56 | Outpatient (CLI) | payer MEDICARE, OTHER, SELFPAY ==
[2019-06-22 10:08] LABS: Albumin Globulin Ratio 1.3 (1.0-2.8); BUN Creatinine Ratio 32.2 (6-22); Bilirubin Total 0.5 mg/dL (0.2-1.3); Blood Urea Nitrogen 19 mg/dL (7-17); Calcium 9.8 mg/dL (8.4-10.2); Carbon Dioxide 28 mmol/L (22-32); Chloride 102 mmol/L (98-107); Estimated Glomerular Filt Rate > 60.0 mL/min (>60); Glucose 99 mg/dL (80-110); HEMOLYSIS < 15 (0-50); Sodium 135 mmol/L (137-145)
[2019-06-22 10:10] LABS: Alanine Aminotransferase 32 IU/L (<35); Alkaline Phosphatase 64 U/L (38-126); Aspartate Aminotransferase 29 IU/L (14-36); Bilirubin Unconjugated 0.5 mg/dL (0.0-1.1)
== END ==
PROVIDERS: PCP Physician Assistant; Referring Provider Internal Medicine Cardiovascular Disease; Visit Provider Internal Medicine Cardiovascular Disease
DX: I48.19 Other persistent atrial fibrillation (principal); I48.4 Atypical atrial flutter; R74.0 Nonspecific elevation of levels of transaminase and lactic acid dehydrogenase [LDH]
CPT/HCPCS: 36415; 80048; 80076

== ENCOUNTER → 2019-09-20 08:50 | Outpatient (CLI) | payer MEDICARE, OTHER, SELFPAY ==
[2019-09-20 10:34] LABS: Cholesterol 197 mg/dL (140-199); HDL Cholesterol 57 mg/dL (40-60); LDL Cholesterol Calculated 127 mg/dL (<100); Triglycerides 66 mg/dL (35-150)
[2019-09-20 10:39] LABS: BUN Creatinine Ratio 29.3 (6-22); Blood Urea Nitrogen 17 mg/dL (7-17); Calcium 9.9 mg/dL (8.4-10.2); Carbon Dioxide 29 mmol/L (22-32); Chloride 101 mmol/L (98-107); Estimated Glomerular Filt Rate > 60.0 mL/min (>60); Glucose 89 mg/dL (80-110); HEMOLYSIS < 15 (0-50); Potassium 4.3 mmol/L (3.4-5.1); Sodium 134 mmol/L (137-145)
== END ==
PROVIDERS: PCP Nurse Practitioner; Referring Provider Internal Medicine Cardiovascular Disease; Visit Provider Internal Medicine Cardiovascular Disease
DX: I48.19 Other persistent atrial fibrillation (principal); I48.4 Atypical atrial flutter; E78.5 Hyperlipidemia, unspecified
CPT/HCPCS: 36415; 80048; 80061

== ENCOUNTER → 2019-10-06 10:20 | Outpatient (CLI) | payer MEDICARE, OTHER, SELFPAY ==
--- NOTE | 2019-10-06 | DI.US.S_ITS ---
PROCEDURE: US THYROID INDICATIONS: NODULES TECHNIQUE: Real-time scanning was performed of the thyroid gland, with image documentation. COMPARISON: None. FINDINGS: Right: Thyroid lobe measures 6.2 x 1.9 x 1.7 cm, and is diffusely heterogeneous in echotexture. Left: Thyroid lobe measures 6.5 x 2.0 x 2.0 cm, and is diffusely heterogeneous in echotexture. Isthmus: 4.2 mm thick. Nodule number: 1 Location: Right inferior Size: 0.6 x 0.3 x 0.5 cm. Composition: Solid Echogenicity: Hypoechoic Shape: wider than tall. Margins: Smooth Echogenic foci: None Total points: 4 ACR TI-RADS category: Moderately suspicious IMPRESSION: 1. Diffusely heterogeneous thyroid bilaterally. 2. Subcentimeter right inferior thyroid nodule. Given the small size, no follow up is warranted. ACR TI-RADS definitions and recommendations: TI-RADS 1 (benign): 0 points. FNA not needed. TI-RADS 2 (not suspicious): 2 points. FNA not needed. TI-RADS 3 (mildly suspicious): 3 points. * FNA if 2.5 cm or larger, follow up if 1.5 cm or larger (at 1, 3, and 5 years). TI-RADS 4 (moderately suspicious): 4-6 points. * FNA if 1.5 cm or larger, follow up if 1 cm or larger (at 1, 2, 3, and 5 years). TI-RADS 5 (highly suspicious): 7 points or more. * FNA if 1 cm or larger, follow up if 0.5 cm or larger (every year for 5 years). Dictated by: Star Tejada [facility] Interpreted: Sarthak Willett MD on 10/06/2019 at 12:37 Approved by: Sarthak Willett M.D. on 10/06/2019 at 13:35
== END ==
PROVIDERS: PCP Physician Assistant; Referring Provider Physician Assistant; Visit Provider Physician Assistant
DX: E04.1 Nontoxic single thyroid nodule (principal)
CPT/HCPCS: 76536

== ENCOUNTER → 2019-10-12 13:00 | Outpatient (CLI) | payer MEDICARE, OTHER, SELFPAY | PROVIDERS: PCP Physician Assistant; Referring Provider Physician Assistant; Visit Provider Physician Assistant | DX: M81.0 Age-related osteoporosis without current pathological fracture (principal); Z78.0 Asymptomatic menopausal state; E07.9 Disorder of thyroid, unspecified; Z82.62 Family history of osteoporosis; Z87.891 Personal history of nicotine dependence | CPT/HCPCS: 77080 ==

== ENCOUNTER 2019-10-13 18:23 | Observation (INO) | payer MEDICARE, OTHER, SELFPAY ==
[2019-10-13] VITALS (9 sets, daily range): BP systolic 107–180; BP diastolic 63–101; PULSE 89–147; RESP 9–25; TEMP 36.8–37.1; O2SAT 95–98; BMI 25.4
--- NOTE | 2019-10-13 18:33 | DI.CT.S_ITS ---
PROCEDURE: CT CERVICAL SPINE WO CON INDICATIONS: Fall/pain TECHNIQUE: Noncontrast 3 mm thick sections acquired from the skull base to the T4 level. Sagittal and coronal reformats were then constructed. For radiation dose reduction, the following was used: automated exposure control, adjustment of mA and/or kV according to patient size. COMPARISON: None. FINDINGS: Image quality: Excellent. Bones: No fractures or dislocations. There is maintenance of normal cervical lordosis. Degenerative disc disease and bilateral facet hypertrophic changes are noted throughout cervical spine. Visualized superior ribs are intact. Soft tissues: Prevertebral soft tissues are normal in thickness. No paravertebral hematomas. No apical pneumothoraces. IMPRESSION: 1. No acute cervical spine fracture or dislocation. 2. Degenerative disc disease throughout cervical spine. Dictated by: Chad Pitt M.D. on 10/13/2019 at 19:02 Approved by: Chad Pitt M.D. on 10/13/2019 at 19:04
--- NOTE | 2019-10-13 18:33 | DI.CT.S_ITS ---
PROCEDURE: CT HEAD/BRAIN WO CON INDICATIONS: Fall/confusion TECHNIQUE: Noncontrast 4.5 mm thick angled axial sections acquired from the foramen magnum to the vertex, with coronal and sagittal reformats. For radiation dose reduction, the following was used: automated exposure control, adjustment of mA and/or kV according to patient size. COMPARISON: [facility], CT, HEAD WITHOUT CONTRAST, 08/29/2013, 7:36. FINDINGS: Image quality: Excellent. CSF spaces: Basal cisterns are patent. No extra-axial fluid collections. The ventricles are symmetric in size and shape. Brain: No intracranial bleeds or masses. There is cerebral volume loss for age, with resultant ventricular and sulcal prominence. There are periventricular and deep white matter chronic small vessel ischemic changes. There is intracranial internal carotid artery atherosclerosis. Skull and face: Calvarium and visualized facial bones appear intact, without suspicious lesions. Sinuses: Visualized sinuses and mastoids are clear. IMPRESSION: 1. No CT evidence of acute intracranial pathology. 2. Age-appropriate atrophy and mild to moderate white matter chronic small vessel ischemic changes. 3. No gross acute skull fracture. Dictated by: Chad Pitt M.D. on 10/13/2019 at 19:04 Approved by: Chad Pitt M.D. on 10/13/2019 at 19:05
--- NOTE | 2019-10-13 18:33 | DI.CT.S_ITS ---
PROCEDURE: CT FACIAL BONES WO CON INDICATIONS: Fall/pain TECHNIQUE: Noncontrast 2.5 mm thick axial images acquired from the mandible through the frontal sinuses, with coronal and sagittal reformatting. For radiation dose reduction, the following was used: automated exposure control, adjustment of mA and/or kV according to patient size. COMPARISON: None. FINDINGS: Image quality: Excellent. Bones and teeth: Orbital hannah are intact. Sinus hannah show no fracture or deformity. Nasal bones and septum are intact. Visualized portions of the mandible demonstrate no fractures or subluxation. Zygomatic arches are intact. Pterygoid plates are intact. Visualized portions of the skull base and auditory canals are intact. Sinuses: Paranasal sinuses are aerated, without fluid levels, mucosal thickening, or mucoceles. Mastoid air cells are aerated. Soft tissues: Mild right facial soft tissue swelling anterior to right maxillary sinus is seen. No enlarged lymph nodes. No soft tissue lacerations or debris. Vascular: Visualized vascular structures appear normal in the absence of contrast. Bony vascular foramina and canals are intact. IMPRESSION: Mild right facial soft tissue swelling. No acute facial bone fracture. Bilateral orbital hannah are intact. Bilateral paranasal sinuses are well aerated. Dictated by: Chad Pitt M.D. on 10/13/2019 at 19:05 Approved by: Chad Pitt M.D. on 10/13/2019 at 19:08
--- NOTE | 2019-10-13 18:36 | ED_ITS ---
HPI - Fall General Chief Complaint: Fall Stated Complaint: GLF,head injury,MOD Trauma Time Seen by Provider: 10/13/19 18:25 Source: patient and EMS Mode of arrival: EMS History of Present Illness HPI Narrative: Patient brought in from home by EMS. Accu-Chek 90. Patient per EMS is repeating questions and does not recall calling 911. She does not recall any pre event pain or dizziness or palpitations or dyspnea. She does not recall why she was in the kitchen. She thinks she hit her mouth against a telephone stand. She has a missing tooth in the right front incisor and a fracture to the next to it. Patient is on blood thinner for atrial fibrillation. She does not recall the name of her family doctor or cold mill operator in town. Denies any recent illness. No nausea vomiting diarrhea. No urinary complaints. No fever or chills. No cough cold or congestion. Patient was ambulatory standing unassisted on the phone with 911 when EMS arrived. Patient arrives here with hard collar. She denies denies any head pain neck pain back pain spine pain or limb pain or any joint pain. MD complaint: fall Related Data Home Medications Medication Instructions Recorded Confirmed cholecalciferol (vitamin D3) 2,000 unit PO DAILY #0 09/18/16 05/11/19 [Vitamin D3] metoprolol tartrate 25 mg PO BID #0 09/18/16 02/23/19 albuterol sulfate 90 mcg/actuation 2 puff INHALATION DAILY gram 09/29/17 05/11/19 aerosol inhaler apixaban 5 mg tablet 5 mg PO BID 01/10/19 05/11/19 calcium carbonate 500 mg calcium 500 mg PO DAILY 01/10/19 05/11/19 (1,250 mg) tablet fluticasone propionate 110 1 puff INHALATION BID 01/10/19 05/11/19 mcg/actuation HFA aerosol inhaler dofetilide 250 mcg capsule 250 mcg PO Q12H 02/23/19 05/11/19 magnesium oxide 400 mg PO DAILY 02/23/19 05/11/19 Previous Rx's Medication Instructions Recorded levothyroxine 100 mcg tablet 100 mcg PO QAM #90 tab 09/03/18 Allergies Allergy/AdvReac Type Severity Reaction Status Date / Time mold [MOLD] Allergy Intermediate LETHARGY Verified 05/11/19 08:41 AND STUFFY HEAD horseradish Allergy Mild Itching Verified 05/11/19 08:41 polyethylene glycol AdvReac Severe Swelling Verified 05/11/19 08:41 and itching in face naproxen [From Aleve] AdvReac Mild rash on Verified 05/11/19 08:41 face Qjjhbql-Dwa-Aor Reductase AdvReac Mild Nausea Verified 05/11/19 08:41 Inhibitor POLLEN Allergy Intermediate RUNNY Uncoded 02/23/19 09:50 NOSE, ITCHY WATERY EYES, LACK OF ENERGY DUST Allergy Mild HAY FEVER Uncoded 02/23/19 09:50 Review of Systems Review of Systems Narrative: GENERAL: Denies chills, fatigue, malaise, fever, sweats. HEENT: Denies sinus pain, ear pain, sore throat, difficulty swallowing, dizziness. RESPIRATORY: Denies dyspnea, cough, wheezing, hemoptysis, sputum. CARDIOVASCULAR: Denies chest pain, palpitations, orthopnea, edema, GASTROINTESTINAL: Denies nausea, vomiting, abdominal pain, diarrhea, constipati on, melena. : Denies dysuria, frequency, incontinence, hematuria, urinary retention. MUSCULOSKELETAL: denies weakness, joint pain, or bony pain SKIN: Denies rash, skin lesions, or other NEUROLOGIC: Denies weakness, headache, numbness , change in speech, seizures, incoordination. has confusion PSYCHIATRIC: No concerning psychosocial issues. ROS Unobtainable: All systems reviewed & are unremarkable except as noted in HPI and below Patient History Medical History Age-related osteoporosis without current pathological fracture (Chronic 8) Asthma (Chronic Unknown) Atrial fibrillation (Chronic ~2004) Atrial flutter (Chronic Unknown) Cardiac arrhythmia (Chronic Unknown) Cataracts, bilateral (Chronic Unknown) Chickenpox (Resolved 1941) Colon polyps (Chronic Unknown) Essential hypertension (Chronic) Hemorrhoids (Chronic Unknown) History of cardioversion (Resolved 2008) History of GI bleed (Resolved Unknown) Hx of multiple pulmonary nodules (Resolved Unknown) Hyperlipemia (Chronic Unknown) Hyperlipidemia (Chronic) Hypertension (Chronic Unknown) Hypothyroidism (Chronic) Hypothyroidism (Chronic Unknown) Measles (Resolved ~1941) Multinodular thyroid (Chronic Unknown) Mumps (Resolved ~1941) Osteopenia (Chronic Unknown) Osteoporosis (Chronic ~2014) Urinary incontinence (Chronic Unknown) Vertigo (Chronic ~2013) Surgical History Fibroids (Resolved 1977) History of cardiac radiofrequency ablation (Acute) Family History Father No problems noted. Mother No problems noted. Brother No problems noted. Social History household members: none Smoking Status: Former smoker Tobacco: How many years used: 35 second hand exposure: Yes (When I was as a kid. My mom smoked.) alcohol intake: never substance use type: does not use Smoking Status: Former smoker Substance Use Type: does not use Exam Narrative Exam Narrative: GENERAL: patient appears stated age. Well-nourished, well- developed patient, in no distress, not toxic HEAD: Atraumatic. Normocephalic. EYES: Pupils equal round and reactive. Extraocular motions intact. No scleral icterus. No injection or drainage. ENT: Nose without bleeding, purulent drainage. Throat without erythema, tonsillar hypertrophy or exudate. Airway patent. There is contusion to the upper lip. No through and through laceration. Tooth 8. Is missing. Tooth 7 fractured NECK: Trachea midline. Non tender patient is in hard collar. Will keep in place until CT scan is completed. CARDIOVASCULAR: Regular rate and rhythm without murmurs, gallops, or rubs. RESPIRATORY: Clear to auscultation. Breath sounds equal bilaterally. No wheezes, rales, or rhonchi. GASTROINTESTINAL: Abdomen soft, non-tender, nondistended. EXTREMITIES: No edema or joint tenderness. No tenderness or deformity of bilateral shoulders elbows wrists and pelvis hips knees ankles BACK: Nontender without deformity or crepitance. No flank tenderness. No midline tenderness or step-off NEURO: AOx3. SKIN: No rash or erythema of visible areas Initial Vital Signs Initial Vital Signs: Vital Signs Temperature 98.8 F 10/13/19 18:19 Pulse Rate 100 H 10/13/19 18:19 Respiratory Rate 16 10/13/19 18:19 Blood Pressure 180/94 H 10/13/19 18:19 Pulse Oximetry 98 10/13/19 18:19 Course Course Course Narrative: I spoke with patient's cousin Kwesi Colbert by phone, patient lives alone, has a cat, no children. Parents are . He contacts her weekly. He has not heard that she has been sick or been ill recently. Decision to Admit Date: 10/13/19 Decision to Admit time: 20:46 Orders Ordered: ED Orders 10/13/19 18:32 EKG-12 Lead Stat 10/13/19 18:33 CT cervical spine wo con Stat CT facial bones wo con Stat CT head/brain wo con Stat 10/13/19 19:25 Complete Blood Count AUTO DIFF Stat Comprehensive Metabolic Panel Stat Partial Thromboplastin Time Stat Prothrombin Time INR Stat Troponin & CK Cardiac Panel Stat 10/13/19 19:29 Urine Microscopic Stat Discontinued Medications Metoprolol Tartrate (Lopressor) 25 mg PO NOW ONE Stop: 10/13/19 20:09 Last Admin: 10/13/19 20:20 Dose: 25 mg Documented by: JAH Reevaluation(s) Reevaluation #1: CT scan cervical spine no acute process. Hard collar removed. There is no no midline tenderness or step-off. Full active range of motion without any neck pain or limb numbness tingling or weakness. Time: 19:15 Consultations Consultation #1: Spoke with general surgery/trauma dr ellison, he is in or it now. He will come by the emergency department before patient to be admitted. Time: 19:57 Consultation #2: Surgeon states he is in OR longer than expected, go ahead and admit patient to hospitalist and he will see patient on the floor. Time: 20:47 Consultation #3: Spoke with hospitalist, Kirsten, will admit Time: 21:40 Vital Signs Vital signs: Vital Signs - 8 hr 10/13/19 18:19 10/13/19 20:00 10/13/19 20:01 Temperature 98.8 F Pulse Rate 100 H 107 H 147 H Respiratory Rate 16 19 20 Blood Pressure 180/94 H 166/101 H 166/101 H Pulse Oximetry 98 97 96 10/13/19 20:30 10/13/19 20:31 10/13/19 21:00 Temperature Pulse Rate 147 H 117 H 106 H Respiratory Rate 10 L 10 L 9 L Blood Pressure 107/83 134/63 Pulse Oximetry 98 98 96 10/13/19 21:30 Temperature Pulse Rate 96 H Respiratory Rate 25 H Blood Pressure 124/83 Pulse Oximetry 95 MDM - Fall Differential Diagnosis Differential diagnosis: Likely syncope Lab Data Result diagrams: 10/13/19 19:25 10/13/19 19:25 Labs: Lab Results 10/13/19 10/13/19 10/13/19 Range/Units 19:25 19:25 19:25 WBC 7.0 (4.5-11.0) X10^3/uL RBC 4.40 (4.0-5.2) X10^6/uL Hgb 13.2 (12.0-16.0) g/dL Hct 39.3 (36-46) % MCV 89.2 (80-100) fL MCH 30.0 (26-34) PG MCHC 33.7 (30-36) % RDW 13.2 (11.6-14.8) % Plt Count 190 (150-400) X10^3/uL Neut % (Auto) 67.9 (50-75) % Lymph % (Auto) 21.3 L (25-40) % [place] % (Auto) 8.3 (3-14) % Eos % (Auto) 1.6 L (2-4) % Baso % (Auto) 0.9 (0-2) % Neut # (Auto) 4700 (0764-5370) /uL Lymph # (Auto) 1500 (7677-8386) /uL [place] # (Auto) 600 (0-900) /uL Eos # (Auto) 100 (0-450) /uL Baso # (Auto) 100 (0-100) /uL PT 13.1 H (10.1-12.7) SECONDS INR 1.1 (0.9-1.3) APTT 34 D (26.4-36.2) SECONDS Sodium 133 L (137-145) mmol/L Potassium 4.0 (3.4-5.1) mmol/L Chloride 100 (98-107) mmol/L Carbon Dioxide 26 (22-32) mmol/L BUN 30 H (7-17) mg/dL Creatinine 0.70 (0.52-1.04) mg/dL Estimated GFR > 60.0 (>60) mL/min BUN/Creatinine Ratio 42.9 H (6-22) Glucose 102 (80-110) mg/dL Calcium 10.4 H (8.4-10.2) mg/dL Total Bilirubin 0.2 (0.2-1.3) mg/dL AST 28 (14-36) IU/L ALT 23 (<35) IU/L Alkaline Phosphatase 70 (38-126) U/L Total Creatine Kinase 88 (30-135) U/L CK-MB (CK-2) TNP CK-MB (CK-2) Rel Index TNP Troponin I < 0.012 (0.01-0.034) ng/mL Total Protein 6.9 (6.3-8.2) g/dL Albumin 4.0 (3.5-5.0) g/dL Globulin 2.9 (1.7-4.1) g/dL Albumin/Globulin Ratio 1.4 (1.0-2.8) Urine RBC (0-5/HPF) Urine WBC (0-5/HPF) Ur Squamous Epith Cells (0-5/HPF) Urine Bacteria (None) Ur Culture Indicated? COVID-19 PCR (Negative) 10/13/19 10/13/19 Range/Units 19:29 19:43 WBC (4.5-11.0) X10^3/uL RBC (4.0-5.2) X10^6/uL Hgb (12.0-16.0) g/dL Hct (36-46) % MCV (80-100) fL MCH (26-34) PG MCHC (30-36) % RDW (11.6-14.8) % Plt Count (150-400) X10^3/uL Neut % (Auto) (50-75) % Lymph % (Auto) (25-40) % [place] % (Auto) (3-14) % Eos % (Auto) (2-4) % Baso % (Auto) (0-2) % Neut # (Auto) (6653-9318) /uL Lymph # (Auto) (1152-3299) /uL [place] # (Auto) (0-900) /uL Eos # (Auto) (0-450) /uL Baso # (Auto) (0-100) /uL PT (10.1-12.7) SECONDS INR (0.9-1.3) APTT (26.4-36.2) SECONDS Sodium (137-145) mmol/L Potassium (3.4-5.1) mmol/L Chloride (98-107) mmol/L Carbon Dioxide (22-32) mmol/L BUN (7-17) mg/dL Creatinine (0.52-1.04) mg/dL Estimated GFR (>60) mL/min BUN/Creatinine Ratio (6-22) Glucose (80-110) mg/dL Calcium (8.4-10.2) mg/dL Total Bilirubin (0.2-1.3) mg/dL AST (14-36) IU/L ALT (<35) IU/L Alkaline Phosphatase (38-126) U/L Total Creatine Kinase (30-135) U/L CK-MB (CK-2) CK-MB (CK-2) Rel Index Troponin I (0.01-0.034) ng/mL Total Protein (6.3-8.2) g/dL Albumin (3.5-5.0) g/dL Globulin (1.7-4.1) g/dL Albumin/Globulin Ratio (1.0-2.8) Urine RBC 5-10/hpf H (0-5/HPF) Urine WBC 0-1/hpf (0-5/HPF) Ur Squamous Epith Cells 0-1 /hpf (0-5/HPF) Urine Bacteria Occasional (0-1) (None) Ur Culture Indicated? Cult not indicated COVID-19 PCR Negative (Negative) Urine Dip Bedside Urine Glucose Negative Bedside Urine Bilirubin - Negative Bedside Urine Ketone +/- 5 Urine Specific [place] 1.015 Bedside Urine Occult Blood ++ Bedside Urine pH 6.0 Bedside Urine Protein - Negative Bedside Urine Urobilinogen - Negative Bedside Urine Nitrite - Negative Bedside Urine Leukocytes - Negative Esterase Imaging Data CT scan - head: Radiologist's Impression: [address] [address] [address] Scan Report Signed Patient: Ruma Yates [facility]#: [id number] : 8Acct:[id number] Age/Sex: 83 / FDate of Service: 10/13/19 Loc: ED Accession Number: [id number] Procedure: CT head/brain wo con Ordering Provider: David Rodriguez MD PROCEDURE: CT HEAD/BRAIN WO CON INDICATIONS: Fall/confusion TECHNIQUE: Noncontrast 4.5 mm thick angled axial sections acquired from the foramen magnum to the vertex, with coronal and sagittal reformats. For radiation dose reduction, the following was used: automated exposure control, adjustment of mA and/or kV according to patient size. COMPARISON: [facility], CT, HEAD WITHOUT CONTRAST, 08/29/2013, 7:36. FINDINGS: Image quality: Excellent. CSF spaces: Basal cisterns are patent. No extra-axial fluid collections. The ventricles are symmetric in size and shape. Brain: No intracranial bleeds or masses. There is cerebral volume loss for age, with resultant ventricular and sulcal prominence. There are periventricular and deep white matter chronic small vessel ischemic changes. There is intracranial internal carotid artery atherosclerosis. Skull and face: Calvarium and visualized facial bones appear intact, without suspicious lesions. Sinuses: Visualized sinuses and mastoids are clear. IMPRESSION: 1. No CT evidence of acute intracranial pathology. 2. Age-appropriate atrophy and mild to moderate white matter chronic small vessel ischemic changes. 3. No gross acute skull fracture. Dictated by: Chad Pitt M.D. on 10/13/2019 at 19:04 Approved by: Chad Pitt M.D. on 10/13/2019 at 19:05 CT - cervical spine: Radiologist's Impression: [place] [address] CT Scan Report Signed Patient: Ruma Yates [facility]#: [id number] : 1936Acct:[id number] Age/Sex: 83 / FDate of Service: 10/13/19 Loc: ED Accession Number: [id number] Procedure: CT cervical spine wo con Ordering Provider: David Rodriguez MD PROCEDURE: CT CERVICAL SPINE WO CON INDICATIONS: Fall/pain TECHNIQUE: Noncontrast 3 mm thick sections acquired from the skull base to the T4 level. Sagittal and coronal reformats were then constructed. For radiation dose reduction, the following was used: automated exposure control, adjustment of mA and/or kV according to patient size. COMPARISON: None. FINDINGS: Image quality: Excellent. Bones: No fractures or dislocations. There is maintenance of normal cervical lordosis. Degenerative disc disease and bilateral facet hypertrophic changes are noted throughout cervical spine. Visualized superior ribs are intact. Soft tissues: Prevertebral soft tissues are normal in thickness. No paravertebral hematomas. No apical pneumothoraces. IMPRESSION: 1. No acute cervical spine fracture or dislocation. 2. Degenerative disc disease throughout cervical spine. Dictated by: Chad Pitt M.D. on 10/13/2019 at 19:02 Approved by: Chad Pitt M.D. on 10/13/2019 at 19:04 CT facial bones: Radiologist's Impression: [address] [address] [address] Scan Report Signed Patient: Ruma Yates [facility]#: [id number] : 8Acct:[id number] Age/Sex: 83 / FDate of Service: 10/13/19 Loc: ED Accession Number: [id number] Procedure: CT facial bones wo con Ordering Provider: David Rodriguez MD PROCEDURE: CT FACIAL BONES WO CON INDICATIONS: Fall/pain TECHNIQUE: Noncontrast 2.5 mm thick axial images acquired from the mandible through the frontal sinuses, with coronal and sagittal reformatting. For radiation dose reduction, the following was used: automated exposure control, adjustment of mA and/or kV according to patient size. COMPARISON: None. FINDINGS: Image quality: Excellent. Bones and teeth: Orbital hannah are intact. Sinus hannah show no fracture or deformity. Nasal bones and septum are intact. Visualized portions of the mandible demonstrate no fractures or subluxation. Zygomatic arches are intact. Pterygoid plates are intact. Visualized portions of the skull base and auditory canals are intact. Sinuses: Paranasal sinuses are aerated, without fluid levels, mucosal thickening, or mucoceles. Mastoid air cells are aerated. Soft tissues: Mild right facial soft tissue swelling anterior to right maxillary sinus is seen. No enlarged lymph nodes. No soft tissue lacerations or debris. Vascular: Visualized vascular structures appear normal in the absence of contrast. Bony vascular foramina and canals are intact. IMPRESSION: Mild right facial soft tissue swelling. No acute facial bone fracture. Bilateral orbital hannah are intact. Bilateral paranasal sinuses are well aerated. Dictated by: Chad Pitt M.D. on 10/13/2019 at 19:05 Approved by: Chad Pitt M.D. on 10/13/2019 at 19:08 ECG Data Attestation: I personally reviewed and interpreted this ECG as follows: Interpretation: Sinus rhythm. Ventricular rate 100. No ST elevation depression. Discharge Plan Departure Patient Disposition: Admitted as Observation Clinical Impression: Fracture of tooth (traumatic), initial encounter for closed fracture Concussion Qualifiers: Encounter type: initial encounter Loss of consciousness presence/duration: with LOC of unspecified duration Qualified Code(s): S06.0X9A - Concussion with loss of consciousness of unspecified duration, initial encounter Discharge Date/Time: 10/13/19 22:30 Admit Date/Time: 10/13/19 21:38 Admit Provider: Isabel Templeton
[2019-10-13 19:33] LABS: Add Manual Diff / Slide Review NO; Basophils Absolute Auto 100 /uL (0-100); Basophils Percent Auto 0.9 % (0-2); Eosinophils Absolute Auto 100 /uL (0-450); Eosinophils Percent Auto 1.6 % (2-4); Hematocrit 39.3 % (36-46); Hemoglobin 13.2 g/dL (12.0-16.0); Lymphocytes Absolute Auto 1500 /uL (1100-4500); Lymphocytes Percent Auto 21.3 % (25-40); Mean Corpuscular HGB Conc 33.7 % (30-36); Mean Corpuscular Volume 89.2 fL (80-100); Monocytes Absolute Auto 600 /uL (0-900); Monocytes Percent Auto 8.3 % (3-14); Neutrophils Absolute Auto 4700 /uL (1500-7000); Neutrophils Percent Auto 67.9 % (50-75); Platelet Count 190 X10^3/uL (150-400); Red Cell Distribution Width 13.2 % (11.6-14.8)
[2019-10-13 19:40] LABS: INR 1.1 (0.9-1.3); Prothrombin Time 13.1 SECONDS (10.1-12.7)
[2019-10-13 19:43] LABS: PTT Partial Thromboplastin Tim 34 SECONDS (26.4-36.2)
[2019-10-13 19:44] LABS: Alanine Aminotransferase 23 IU/L (<35); Albumin Globulin Ratio 1.4 (1.0-2.8); Alkaline Phosphatase 70 U/L (38-126); Aspartate Aminotransferase 28 IU/L (14-36); BUN Creatinine Ratio 42.9 (6-22); Bilirubin Total 0.2 mg/dL (0.2-1.3); Blood Urea Nitrogen 30 mg/dL (7-17); Calcium 10.4 mg/dL (8.4-10.2); Carbon Dioxide 26 mmol/L (22-32); Chloride 100 mmol/L (98-107); Creatine Kinase 88 U/L (30-135); Estimated Glomerular Filt Rate > 60.0 mL/min (>60); Globulin 2.9 g/dL (1.7-4.1); Glucose 102 mg/dL (80-110); HEMOLYSIS < 15 (0-50); Sodium 133 mmol/L (137-145); Total Protein 6.9 g/dL (6.3-8.2)
[2019-10-13 19:47] LABS: Bacteria Urine Occasional (0-1); Culture Indicated Urine Cult Not Indicated; RBC Urine 5-10/HPF (0-5/HPF); Squamous Epithelial Cell Urine 0-1 /HPF (0-5/HPF); WBC Urine 0-1/HPF (0-5/HPF)
[2019-10-13 19:56] LABS: Troponin I < 0.012 ng/mL (0.01-0.034)
[2019-10-13] MEDS: METOPROLOL IR 25 MG TABLET PO (20:20)
[2019-10-13 20:58] LABS: COVID19 -Nasal RAPID Negative (Negative)
--- NOTE | 2019-10-13 22:10 | PC.NURSE ---
Dr. Rodriguez called the patients family member CLIFF and updated him about what happened. patient verbally okayed for us to let him know. patient concerned about her cat that lives with her at home. patient asked me to called her neighbor Cliff but she was unable to remember his number.
--- NOTE | 2019-10-13 23:06 | PM.CN ---
History of Present Illness Consult details Date Patient Seen: 10/13/19 Time Patient Seen: 23:07 Chief complaint: GLF,head injury,MOD Trauma Reason for consult: Ground level fall with concussion Requesting provider: David Rodriguez Narrative: The patient is a woman who was brought to the emergency room by ambulance. She was found at home after a fall. She has no recollection of the event and no recollection of how she got to the hospital. In fact she is having difficulty with memory in general. She did however remember who her neighbor was and who her nephew was. I was able to track down her neighbor to look in for on her Cat and asked him about her. He said she generally she is mentally clear so this is a significant change from her baseline. She really can not give me much information. She does know she broke her tooth and she does not know how all. She does not remember falling. She repeats questions. Her only pain seems to be in her jaw at this time. She has no neck or back pain. No chest pain. Meds Home Medications and Allergies Home Medications Medication Instructions Recorded Confirmed Type cholecalciferol (vitamin D3) 2,000 unit PO DAILY #0 09/18/16 05/11/19 History [Vitamin D3] metoprolol tartrate 25 mg PO BID #0 09/18/16 02/23/19 History albuterol sulfate 90 mcg/actuation 2 puff INHALATION DAILY gram 09/29/17 05/11/19 History aerosol inhaler levothyroxine 100 mcg tablet 100 mcg PO QAM #90 tab 09/03/18 05/11/19 Rx apixaban 5 mg tablet 5 mg PO BID 01/10/19 05/11/19 History calcium carbonate 500 mg calcium 500 mg PO DAILY 01/10/19 05/11/19 History (1,250 mg) tablet fluticasone propionate 110 1 puff INHALATION BID 01/10/19 05/11/19 History mcg/actuation HFA aerosol inhaler dofetilide 250 mcg capsule 250 mcg PO Q12H 02/23/19 05/11/19 History magnesium oxide 400 mg PO DAILY 02/23/19 05/11/19 History Allergies Allergy/AdvReac Type Severity Reaction Status Date / Time mold [MOLD] Allergy Intermediate LETHARGY Verified 05/11/19 08:41 AND STUFFY HEAD horseradish Allergy Mild Itching Verified 05/11/19 08:41 polyethylene glycol AdvReac Severe Swelling Verified 05/11/19 08:41 and itching in face naproxen [From Aleve] AdvReac Mild rash on Verified 05/11/19 08:41 face Rxyddnq-Lhw-Viq Reductase AdvReac Mild Nausea Verified 05/11/19 08:41 Inhibitor POLLEN Allergy Intermediate RUNNY Uncoded 02/23/19 09:50 NOSE, ITCHY WATERY EYES, LACK OF ENERGY DUST Allergy Mild HAY FEVER Uncoded 02/23/19 09:50 Review of Systems Review of Systems Narrative: She really can not give me a good review of systems. She can only answer questions about her present state. She does know that she supposed to take heart pill and she does not think she has gotten it tonight Exam Vital Signs (past 8 hours): - 10/13/19 18:19 10/13/19 20:00 10/13/19 20:01 Temperature 98.8 F Pulse Rate 100 H 107 H 147 H Respiratory Rate 16 19 20 Blood Pressure 180/94 H 166/101 H 166/101 H Pulse Oximetry 98 97 96 10/13/19 20:30 10/13/19 20:31 10/13/19 21:00 Temperature Pulse Rate 147 H 117 H 106 H Respiratory Rate 10 L 10 L 9 L Blood Pressure 107/83 134/63 Pulse Oximetry 98 98 96 10/13/19 21:30 10/13/19 22:00 Temperature Pulse Rate 96 H 95 H Respiratory Rate 25 H 14 Blood Pressure 124/83 130/68 Pulse Oximetry 95 96 Oxygen Delivery Method Room Air Narrative Exam Narrative: Extraocular movements are intact. Face is symmetric. Slight let redness on the right upper jaw. No tenderness of the facial bones. Touch is intact on her face. Uvula elevates in the midline tongue is in the midline. She appears to have traumatize the tip of her tongue. There is no laceration however. Extra any movement is intact. She follows commands without difficulty. Strength is equal bilaterally. Touch is intact bilaterally. There is no lateralizing signs. No drainage from her ears. Patient is missing a right upper tooth. Nearby is a fractured tooth. Her neck is nontender. No nodes in the neck or supraclavicular areas. Her lungs are clear to auscultation without rales or rhonchi. Equal percussion. Good air movement. Heart irregularly irregular without murmur gallop. No bruit in the neck. Her abdomen is scaphoid soft. There is no tenderness. No obvious enlargement of her liver spleen. No ventral hernias. The patient is oriented to person place but not to year. She does know who the president is. Her speech rate and content are appropriate except she pauses when asked the question because she can not remember the answer. Objective Labs Result Diagrams: 10/13/19 19:25 10/13/19 19:25 Labs: Laboratory Results - last 24 hr 10/13/19 10/13/19 10/13/19 19:25 19:25 19:25 WBC 7.0 RBC 4.40 Hgb 13.2 Hct 39.3 MCV 89.2 MCH 30.0 MCHC 33.7 RDW 13.2 Plt Count 190 Neut % (Auto) 67.9 Lymph % (Auto) 21.3 L [place] % (Auto) 8.3 Eos % (Auto) 1.6 L Baso % (Auto) 0.9 Neut # (Auto) 4700 Lymph # (Auto) 1500 [place] # (Auto) 600 Eos # (Auto) 100 Baso # (Auto) 100 PT 13.1 H INR 1.1 APTT 34 D Sodium 133 L Potassium 4.0 Chloride 100 Carbon Dioxide 26 BUN 30 H Creatinine 0.70 Estimated GFR > 60.0 BUN/Creatinine Ratio 42.9 H Glucose 102 Calcium 10.4 H Total Bilirubin 0.2 AST 28 ALT 23 Alkaline Phosphatase 70 Total Creatine Kinase 88 CK-MB (CK-2) TNP CK-MB (CK-2) Rel Index TNP Troponin I < 0.012 Total Protein 6.9 Albumin 4.0 Globulin 2.9 Albumin/Globulin Ratio 1.4 Urine RBC Urine WBC Ur Squamous Epith Cells Urine Bacteria Ur Culture Indicated? COVID-19 PCR 10/13/19 10/13/19 19:29 19:43 WBC RBC Hgb Hct MCV MCH MCHC RDW Plt Count Neut % (Auto) Lymph % (Auto) [place] % (Auto) Eos % (Auto) Baso % (Auto) Neut # (Auto) Lymph # (Auto) [place] # (Auto) Eos # (Auto) Baso # (Auto) PT INR APTT Sodium Potassium Chloride Carbon Dioxide BUN Creatinine Estimated GFR BUN/Creatinine Ratio Glucose Calcium Total Bilirubin AST ALT Alkaline Phosphatase Total Creatine Kinase CK-MB (CK-2) CK-MB (CK-2) Rel Index Troponin I Total Protein Albumin Globulin Albumin/Globulin Ratio Urine RBC 5-10/hpf H Urine WBC 0-1/hpf Ur Squamous Epith Cells 0-1 /hpf Urine Bacteria Occasional (0-1) Ur Culture Indicated? Cult not indicated COVID-19 PCR Negative Assessment & Plan Assessment & Plan narrative: I reviewed her CT scans and reports. No head or neck trauma is or facial trauma is apparent. Thus this patient appears to have a ground level fall with loss of consciousness/concussion/memory loss but a normal CT of the head. She has some fractured teeth. All I can recommend is supportive care and hopefully her memory improves and returns. In her present condition she could not go back to living alone. I would probably hold her air picks a band for now to make sure there is no delayed bleed in her head. Other conditions such as her hypothyroidism, her atrial fib would continue her present medication.
--- NOTE | 2019-10-14 00:23 | DI.MRI.S_ITS ---
PROCEDURE: MR STROKE Pre- and post-contrast brain MRI, non-contrast brain MR angiogram, pre- and postcontrast neck MR angiogram INDICATIONS: Fall, amnesia TECHNIQUE: Brain: Noncontrast axial T1 spin echo, axial T2 fast spin echo, sagittal and axial FLAIR, coronal T2 fast spin echo, axial gradient echo, axial diffusion and ADC through the brain. After the administration of contrast, axial 3D VIBE of the cranial vasculature and brain. Brain MRA: Non-contrast 3-D time of flight MR angiogram, with multiple aavduyg-cpkxbgszz-hyrdwpppol (MIP) reformats performed. Neck MRA: Axial and sagittal TruFISP through the neck. Coronal dynamic MR angiogram during administration of contrast in the arterial and venous phases, with 3-dimenstional atefmzl-utpewlddy-khpjxbxkoi (MIP) reformats constructed from subtraction images. COMPARISON: [facility], CT, CT CERVICAL SPINE WO CON, 10/13/2019, 18:30. [facility], CT, CT HEAD/BRAIN WO CON, 10/13/2019, 18:30. FINDINGS: Image quality: Excellent. BRAIN: CSF spaces: Ventricles are normal in size and shape. Basal cisterns are patent. No extra-axial fluid collections. Brain: No intracranial bleeds or mass effects. 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 There is moderate cerebral volume loss. Mild periventricular matter chronic small less ischemic changes are present. Diffusion weighted images show no acute ischemic insults. Brainstem appears normal. Normal intravascular flow voids are present. No abnormal intracranial enhancement. Skull and face: Calvarial marrow signal is normal. Orbits appear normal. Sinuses: Sinuses and mastoids are clear. BRAIN MR ANGIOGRAM: Anterior circulation: Intracranial internal carotid arteries are normal in size and enhancement. The flow within the paired anterior cerebral arteries is normal and symmetric. The flow within the middle cerebral arteries is normal and symmetric. The anterior communicating artery is seen. No stenoses, occlusions, or aneurysms. Posterior circulation: The visualized portions of the vertebral arteries demonstrate normal caliber, and join to form a normal appearing basilar artery. The flow within the posterior cerebral arteries is normal and symmetric. No stenoses, occlusions, or aneurysms. NECK MR ANGIOGRAM: There are motion artifacts in the upper thorax. Carotids: Great vessels demonstrate a conventional anatomy as they arise from the aortic arch. The origins of the common carotid arteries appear patent. The calibers and courses of both common carotid arteries are normal. The bifurcation regions appear normal bilaterally. The internal carotid arteries demonstrate normal course and caliber. Posterior circulation: The origins of the vertebral arteries appear patent. More superior portions of both vertebral arteries demonstrate normal course and caliber, and join to form a normal appearing basilar artery. Miscellaneous: Subclavian arteries appear patent. Pre-contrast images through the neck show no soft tissue abnormalities. IMPRESSION: BRAIN MRI: 1. No acute intracranial abnormalities. 2. 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 3. Cerebral volume loss and chronic microvascular ischemic changes. BRAIN MR ANGIOGRAM: 1. No high-grade stenosis or occlusion in anterior circulations. 2. No high-grade stenosis or occlusion in posterior circulations. NECK MR ANGIOGRAM: 1. Motion artifacts in the upper thorax. The origin and proximal carotid arteries and vertebral arteries are suboptimally visualized. 2. No high-grade stenosis or occlusion in cervical carotid arteries bilaterally. 3. No high-grade stenosis or occlusion in cervical vertebral arteries bilaterally. Dictated by: Sarthak Willett M.D. on 10/14/2019 at 12:09 Approved by: Sarthak Willett M.D. on 10/14/2019 at 12:27
[2019-10-14] MEDS: SODIUM CHLORIDE 0.9% 1,000 ML 100 ML IV (01:44)
[2019-10-14 03:00] VITALS: BP 123/81; PULSE 84; RESP 16; TEMP 36.4; O2SAT 96
--- NOTE | 2019-10-14 03:19 | PC.NURSE ---
Addendum entered by Gisselle Mckeon R.N. 10/14/19 05:30: States mouth discomfort is 3/10 but declines offer of medication. Original Note: Patient is alert and oriented except did not know day of month and could not remember how she got to hospital or what occurred prior to coming to hospital. NIH = 0. Breath sounds CTA with RA sat of 98%. HR irregular; telemetry reading was afib CVR. Denies nausea. BT present and abdomen is soft. Has chronic urinary urgency but denies dysuria or frequency but does report some stress incontinence. Is able to move self in bed. Up to bathroom/BSC with 1 assist. Has abrasions/bruising on face from supposed fall. Missing top front tooth with fractured tooth to right of missing tooth. Denies pain. Fall risk score is high and bed alarm is activated.
--- NOTE | 2019-10-14 04:19 | P.HP_ITS ---
History of Present Illness History of Present Illness Date Patient Seen: 10/14/19 Time Patient Seen: 00:01 Chief complaint: GLF,head injury,MOD Trauma Narrative: Ruma Yates is a pleasant 83-year-old female with atrial fibrillation, history of cardiac ablation, and hypothyroidism who was in her usual state of health when she apparently fell, hitting her head and face. She is unable to tell me how this happened, how she got to the hospital, and loses track of the fact that she is in the hospital. She also repeatedly asks about whether not she has received her metoprolol tonight and that her neighbor is supposed to go over to her house and feed her cat. The patient was requested for admission due to possible post concussive syndrome. Per the ED report, EMS was called when she fell and they brought her here. She denies feeling dizzy, recent illness, headache, she does have pain in her mouth particularly where she fractured 2 lower teeth, denies shortness of breath, chest pain, dysuria, nausea or vomiting, diarrhea or constipation. She denies any problems with mobility of her upper lower extremities. In the emergency department they did a head and face CT as well as a C-spine CT all of which were negative. Her temp was 97.5?, blood pressure 123/81, heart rate 84, respiratory rate 16, oxygen saturation 96%, her weight is 78 kg with a BMI of 25.4. WBC 7.0, RBC 4.4, hemoglobin 13.2, hematocrit 39.3, platelet count 190, sodium 133, potassium 4.0, chloride 100, CO2 26, BUN 30, creatinine 0.7 with a GFR of greater than 60, glucose 102, calcium 10.4, liver enzymes within normal limits, her troponin was 0.040, UA was negative for UTI, and COVID-19 was negative. Patient History Medical History Age-related osteoporosis without current pathological fracture (Chronic 07/07/17) Asthma (Chronic Unknown) Atrial fibrillation (Chronic ~2004) Atrial flutter (Chronic Unknown) Cardiac arrhythmia (Chronic Unknown) Cataracts, bilateral (Chronic Unknown) Chickenpox (Resolved 194) Colon polyps (Chronic Unknown) Essential hypertension (Chronic) Hemorrhoids (Chronic Unknown) History of cardioversion (Resolved 2008) History of GI bleed (Resolved Unknown) Hx of multiple pulmonary nodules (Resolved Unknown) Hyperlipemia (Chronic Unknown) Hyperlipidemia (Chronic) Hypertension (Chronic Unknown) Hypothyroidism (Chronic) Hypothyroidism (Chronic Unknown) Measles (Resolved ~1941) Multinodular thyroid (Chronic Unknown) Mumps (Resolved ~194) Osteopenia (Chronic Unknown) Osteoporosis (Chronic ~2014) Urinary incontinence (Chronic Unknown) Vertigo (Chronic ~2012) Surgical History Fibroids (Resolved 1977) History of cardiac radiofrequency ablation (Acute) Family & Social History Family History (Updated 10/14/19 @ 04:38 by PREET Grimes) Father Atrial fibrillation Mother Old age Brother No problems noted. Social History: household members none Prior Living Arrangements House Safety & Behavioral: Feels Safe in Current Yes Environment Been Physically Hurt or No Threatened By a Person Suicidal Ideation Description None Suicide Plan Description No Plan Tobacco & Substance use: Smoking Status Former smoker alcohol intake never Substance Use Type does not use Meds Home Medications and Allergies Home Medications Medication Instructions Recorded Confirmed Type cholecalciferol (vitamin D3) 2,000 unit PO DAILY #0 09/18/16 05/11/19 History [Vitamin D3] metoprolol tartrate 25 mg PO BID #0 09/18/16 02/23/19 History albuterol sulfate 90 mcg/actuation 2 puff INHALATION DAILY gram 09/29/17 05/11/19 History aerosol inhaler levothyroxine 100 mcg tablet 100 mcg PO QAM #90 tab 09/03/18 05/11/19 Rx apixaban 5 mg tablet 5 mg PO BID 01/10/19 05/11/19 History calcium carbonate 500 mg calcium 500 mg PO DAILY 01/10/19 05/11/19 History (1,250 mg) tablet fluticasone propionate 110 1 puff INHALATION BID 01/10/19 05/11/19 History mcg/actuation HFA aerosol inhaler dofetilide 250 mcg capsule 250 mcg PO Q12H 02/23/19 05/11/19 History magnesium oxide 400 mg PO DAILY 02/23/19 05/11/19 History Allergies Allergy/AdvReac Type Severity Reaction Status Date / Time mold [MOLD] Allergy Intermediate LETHARGY Verified 05/11/19 08:41 AND STUFFY HEAD horseradish Allergy Mild Itching Verified 05/11/19 08:41 polyethylene glycol AdvReac Severe Swelling Verified 05/11/19 08:41 and itching in face naproxen [From Aleve] AdvReac Mild rash on Verified 05/11/19 08:41 face Ivlkqcq-Ppz-Tsx Reductase AdvReac Mild Nausea Verified 05/11/19 08:41 Inhibitor POLLEN Allergy Intermediate RUNNY Uncoded 02/23/19 09:50 NOSE, ITCHY WATERY EYES, LACK OF ENERGY DUST Allergy Mild HAY FEVER Uncoded 02/23/19 09:50 Review of Systems Review of Systems ROS: Yes All systems reviewed with the patient and are negative except as otherwise documented Exam Vital Signs (past 8 hours): - 10/13/19 20:30 10/13/19 20:31 10/13/19 21:00 Temperature Pulse Rate 147 H 117 H 106 H Respiratory Rate 10 L 10 L 9 L Blood Pressure 107/83 134/63 Pulse Oximetry 98 98 96 10/13/19 21:30 10/13/19 22:00 10/13/19 22:35 Temperature 98.2 F Pulse Rate 96 H 95 H 89 Respiratory Rate 25 H 14 15 Blood Pressure 124/83 130/68 117/70 Pulse Oximetry 95 96 98 10/14/19 03:00 Temperature 97.5 F L Pulse Rate 84 Respiratory Rate 16 Blood Pressure 123/81 Pulse Oximetry 96 Oxygen Delivery Method Room Air Oxygen Flow Rate 0 Narrative Exam Narrative: Gen: Alert, oriented, well-developed 83 y.o. female, NAD HEENT: normocephalic, 1 lower tooth is missing and her mouth had blood in the gumline at the time of visit, conjunctiva clear, sclera non-icteric, oral mucosa pink and moist Neck: supple, full ROM, no JVD, trachea is midline Resp: Lungs CTA, non-labored breathing CV: RRR, no murmur or rubs Abd: soft, non-tender, normoactive BTs Skin: no lesions or rashes, dry and intact Neuro: She perseverates on the same questions and is unable to recall answers after several times repeating, alert and oriented X 1-2 w/no focal deficits. Speech clear and coherent. Extremities: moves all 4 extremities, is ambulatory, negative Sriram?s sign Psyche: normal mood and affect. Objective Labs Result Diagrams: 10/13/19 19:25 10/13/19 19:25 Labs: Laboratory Results - last 24 hr 10/13/19 10/13/19 10/13/19 19:25 19:25 19:25 WBC 7.0 RBC 4.40 Hgb 13.2 Hct 39.3 MCV 89.2 MCH 30.0 MCHC 33.7 RDW 13.2 Plt Count 190 Neut % (Auto) 67.9 Lymph % (Auto) 21.3 L Mcclain % (Auto) 8.3 Eos % (Auto) 1.6 L Baso % (Auto) 0.9 Neut # (Auto) 4700 Lymph # (Auto) 1500 Mcclain # (Auto) 600 Eos # (Auto) 100 Baso # (Auto) 100 PT 13.1 H INR 1.1 APTT 34 D Sodium 133 L Potassium 4.0 Chloride 100 Carbon Dioxide 26 BUN 30 H Creatinine 0.70 Estimated GFR > 60.0 BUN/Creatinine Ratio 42.9 H Glucose 102 Calcium 10.4 H Total Bilirubin 0.2 AST 28 ALT 23 Alkaline Phosphatase 70 Total Creatine Kinase 88 CK-MB (CK-2) TNP CK-MB (CK-2) Rel Index TNP Troponin I < 0.012 Total Protein 6.9 Albumin 4.0 Globulin 2.9 Albumin/Globulin Ratio 1.4 Urine RBC Urine WBC Ur Squamous Epith Cells Urine Bacteria Ur Culture Indicated? COVID-19 PCR 10/13/19 10/13/19 10/14/19 19:29 19:43 01:10 WBC RBC Hgb Hct MCV MCH MCHC RDW Plt Count Neut % (Auto) Lymph % (Auto) Mcclain % (Auto) Eos % (Auto) Baso % (Auto) Neut # (Auto) Lymph # (Auto) Mcclain # (Auto) Eos # (Auto) Baso # (Auto) PT INR APTT Sodium Potassium Chloride Carbon Dioxide BUN Creatinine Estimated GFR BUN/Creatinine Ratio Glucose Calcium Total Bilirubin AST ALT Alkaline Phosphatase Total Creatine Kinase CK-MB (CK-2) CK-MB (CK-2) Rel Index Troponin I 0.040 H Total Protein Albumin Globulin Albumin/Globulin Ratio Urine RBC 5-10/hpf H Urine WBC 0-1/hpf Ur Squamous Epith Cells 0-1 /hpf Urine Bacteria Occasional (0-1) Ur Culture Indicated? Cult not indicated COVID-19 PCR Negative Assessment & Plan Assessment & Plan narrative: Ruma Yates is placed into observation for further assessment and management of a post concussive syndrome versus TIA. Ground level fall with head injury, acute, present on admission -patient will have MRI of of the head to rule out CVA versus TIA -Tylenol for pain -neuro checks q.4 hours -she will need referral to a dentist upon discharge for her fractured tooth Equivocal elevated troponin at 0.04, increased over admission -likely due to demand ischemia and will trend 1 more time Atrial fibrillation, chronic and stable -due to potential for a head bleed, will hold her apixaban until after the results of the MRI, will likely restart either in the evening or the morning of October 15 -Continue home dose of metoprolol 25 mg p.o. b.i.d. -Continue home dose of dofetilide 250 mg p.o. b.i.d. Hypothyroidism, chronic -continue home dose of levothyroxine 100 mcg daily -TSH ordered as her last one has not been done since June of 2018 Consults: Dr. Ellison, Orthopedic surgery, consult and involvement is appreciated. Patient is observation status as her stay is not likely to exceed 2 midnights. FEN: NS at 100 ml/hour, low sodium diet, BMP in the am. VTE prophylaxis: Bilateral SCDs Dispo: Unknown at this time Code Status: Full code as discussed with patient Quality VTE Deep Vein Thrombosis/Pulmonary Embolism Present on Admission: No
[2019-10-14] MEDS: LEVOTHYROXINE 100 MCG TABLET PO (05:29)
[2019-10-14 06:46] LABS: Add Manual Diff / Slide Review NO; Basophils Absolute Auto 100 /uL (0-100); Basophils Percent Auto 0.9 % (0-2); Eosinophils Absolute Auto 0 /uL (0-450); Eosinophils Percent Auto 0.6 % (2-4); Hematocrit 38.4 % (36-46); Lymphocytes Absolute Auto 1300 /uL (1100-4500); Lymphocytes Percent Auto 17.9 % (25-40); Mean Corpuscular HGB Conc 33.9 % (30-36); Mean Corpuscular Volume 88.6 fL (80-100); Monocytes Absolute Auto 600 /uL (0-900); Monocytes Percent Auto 7.9 % (3-14); Neutrophils Absolute Auto 5400 /uL (1500-7000); Neutrophils Percent Auto 72.7 % (50-75); Platelet Count 199 X10^3/uL (150-400); Red Blood Cell Count 4.33 X10^6/uL (4.0-5.2); Red Cell Distribution Width 13.1 % (11.6-14.8); White Blood Cell Count 7.4 X10^3/uL (4.5-11.0)
[2019-10-14 06:56] LABS: BUN Creatinine Ratio 32.1 (6-22); Blood Urea Nitrogen 17 mg/dL (7-17); Carbon Dioxide 28 mmol/L (22-32); Chloride 106 mmol/L (98-107); Estimated Glomerular Filt Rate > 60.0 mL/min (>60); Glucose 106 mg/dL (80-110); HEMOLYSIS < 15 (0-50); Potassium 4.2 mmol/L (3.4-5.1); Sodium 138 mmol/L (137-145)
[2019-10-14 07:09] LABS: Troponin I 0.029 ng/mL (0.01-0.034)
[2019-10-14 07:57] VITALS: BP 131/90; PULSE 94; RESP 16; TEMP 36.4; O2SAT 97
[2019-10-14] MEDS: METOPROLOL IR 25 MG TABLET PO ×2 (08:09→19:39)
[2019-10-14] MEDS: DOFETILIDE 250 MCG PO ×2 (08:43→20:47)
--- NOTE | 2019-10-14 11:45 | OT.IP.EVAL ---
Past Medical History (Last Reviewed 10/14/19 @ 04:37 by PREET Grimes) Age-related osteoporosis without current pathological fracture (Chronic 07/07/17) Asthma (Chronic Unknown) Atrial fibrillation (Chronic ~2004) Atrial flutter (Chronic Unknown) Cardiac arrhythmia (Chronic Unknown) Cataracts, bilateral (Chronic Unknown) Chickenpox (Resolved 1941) Colon polyps (Chronic Unknown) Essential hypertension (Chronic) Hemorrhoids (Chronic Unknown) History of cardioversion (Resolved 2008) History of GI bleed (Resolved Unknown) Hx of multiple pulmonary nodules (Resolved Unknown) Hyperlipemia (Chronic Unknown) Hyperlipidemia (Chronic) Hypertension (Chronic Unknown) Hypothyroidism (Chronic) Hypothyroidism (Chronic Unknown) Measles (Resolved ~1941) Multinodular thyroid (Chronic Unknown) Mumps (Resolved ~1941) Osteopenia (Chronic Unknown) Osteoporosis (Chronic ~2014) Urinary incontinence (Chronic Unknown) Vertigo (Chronic ~2012) Surgical History (Last Reviewed 10/13/19 @ 23:10 by Darryl Ellison MD) Fibroids (Resolved 1977) History of cardiac radiofrequency ablation (Acute) Occupational Therapy Inpatient Evaluation/Re-Eval M1 PT/OT-IP Prior Functional Status Start: 10/14/19 12:49 Freq: NEEDED Status: Active Protocol: Document 10/14/19 12:50 CGR (Rec: 10/14/19 12:58 CGR [email or web address]) Medical Review Prior Functional Status Medical History Reviewed Yes Communication Pt is an effective verbal communicator. Mobility and Gait Pt was IND without AD Activities of Daily Living and IADL's Pt was IND without AD Social History Household Members none Living Arrangements House Number of Floors (Floors) Two Floors Number of Stairs To Enter/Railing? Pt has no stairs to enter. Pt has a ramp on the deck. Home Environment High Toilet,Tub/Shower Home Equipment Grab Bars Near Toilet,Grab Bars In Shower Employment Status Retired Additional Social History Comment Pt lives alone with her cat but she has very supportive neighbors who can check in on her. Pt states that she can get DME if needed. M2 OT-IP Current Condition Start: 10/14/19 12:49 Freq: Status: Active Protocol: Document 10/14/19 12:50 CGR (Rec: 10/14/19 12:58 CGR [email or web address]) Occupational Therapy Current Condition Current Condition Evaluation Date 10/14/19 Treatment Diagnosis GLF with head injury Diagnosis Onset Date 10/13/19 M3 OT- IP Subjective and Pain Start: 10/14/19 12:49 Freq: Status: Active Protocol: Document 10/14/19 12:50 CGR (Rec: 10/14/19 12:58 CGR [email or web address]) OT- Subjective Occupational Therapy Visit Type Type Initial Evaluation Visit Start Time 11:25 Visit Stop Time 11:45 Total Visit Minutes 20 OT Pain Assessment Pain When Pain Assessed At Rest Pain Present Pain Present Denied Pain M4 OT- IP ADL's Start: 10/14/19 12:49 Freq: Status: Active Protocol: Document 10/14/19 12:50 CGR (Rec: 10/14/19 12:58 CGR [email or web address]) OT [id number] Comments OT Self-Feeding Comments not meal time OT ADL-Grooming General Evaluation Grooming Ability Independent Areas Needing Assistance Combing/Brushing Hair,Face Washing Comments OT Grooming Comments standing at sink OT ADL-Oral Care General Eval Oral Care Ability Independent Areas of Assistance Brushing Teeth Comments Oral Care Comments standing at sink OT ADL-Dressing General Eval Upper Body Dressing Ability Independent Lower Body Dressing Ability Independent Areas Needing Assistance Socks Comments OT Dressing Comments seated in chair OT ADL-Toileting General Evaluation Toileting Ability Independent Devices Toileting Assistive Devices Grab Bars OT ADL-Bathing Comments OT Bathing Comments not performed M5 OT- IP IADL's Start: 10/14/19 12:49 Freq: Status: Active Protocol: Document 10/14/19 12:50 CGR (Rec: 10/14/19 12:58 CGR [email or web address]) OT-Instrumental Activities of Daily Living Deficits IADL Deficits Identified No Deficits Home Safety Awareness Awareness of Need for Assistance at Home Good Awareness Ability to Problem Solve Emergency Able to Problem Solve Situations Medication Management Medication Management No Deficits Identified Money Management Money Management No Deficits Identified Meal Preparation Meal Preparation No Deficits Identified Assembly Supervisor Assembly Supervisor No Deficits Identified Driving Driving Comments 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 OT- IP Functional Cognition Start: 10/14/19 12:49 Freq: Status: Active Protocol: Document 10/14/19 12:50 CGR (Rec: 10/14/19 12:58 CGR [email or web address]) Cognitive Factors Limiting Selfcare Function Cognitive Ability Level of Alertness Alert Patient Orientation Name,Age,Birthday,Month,Date, Year,Day of Week,Place, Situation Attention Span Ability Capable of Focused Attention, Capable of Sustained Attention Ability to Follow Commands Able to Follow Multi-Step Commands OT- Vision and Hearing OT- Hearing Assessment OT- Hearing Assessment WFL OT- Vision Assessment Vision History Cataracts Visual Acuity Glasses All The Time Visual Attentiveness WFL Occular Pursuits WFL Visual Convergence WFL Visual Gayle WFL M7 OT- IP Mobility and Balance Start: 10/14/19 12:49 Freq: Status: Active Protocol: Document 10/14/19 12:50 CGR (Rec: 10/14/19 12:58 CGR [email or web address]) OT- Bed Mobility Assessment Rolling Type of Rolling Roll to Left Level of Assistance Independent Supine to Sit Supine to Sit Assist Independent Scooting Scooting to Edge of Bed Independent OT-Transfer Assessment Sit to and From Stand Sit to and from Stand Standby Assistance Transfers Transfer Ability Standby Assistance Technique Transfer Destination Bed,Chair,Toilet Transfer Technique Stand Step Pivot Devices Transfer Assistive Devices Gait Belt OT- Gait Assessment Gait Gait Assistance Required: Standby Assistance Assistive Devices Assistive Device Gait Belt OT- Balance Assessment Sitting Balance and Reactions Static Sitting Balance Ability Normal Dynamic Sitting Balance Ability Good M8 OT- IP Objective Assessments Start: 10/14/19 12:49 Freq: Status: Active Protocol: Document 10/14/19 12:50 CGR (Rec: 10/14/19 12:58 CGR [email or web address]) OT Gross Range of Motion Upper Extremity Range of Motion Assessment Within Functional Limits OT Strength Upper Extremity Strength Assessment Within Functional Limits Comments Strength Comments 4+/5 throughout with slightly less strength noted to the L shld and elbow which is likely pts baseline as she is right handed. OT- Coordination Assessment Upper Extremity Finger to Nose Test Within Functional Limits Finger Tapping Test Within Functional Limits OT-Muscle Tone Assessment Muscle Tone WNL Yes OT Sensation Assessment Edema Edema Absent M9 OT- IP Assessment and Plan Start: 10/14/19 12:49 Freq: Status: Active Protocol: Document 10/14/19 12:50 CGR (Rec: 10/14/19 12:58 CGR [email or web address]) OT Summary Assessment and Plan Potential Rehabilitation Potential Excellent Analytic Complexity at Evaluation Low Summary Progress Towards Goals Safe For Discharge,Goals Met Assessment Summary Pt presents as a low complexity evaulation s/p GLF with head injury. Pt appears to be at or close to her baseline of IND without AD. No further OT needs. Frequency of Treatment Frequency Of Treatment Discharge Discharge Recommendations OT Discharge Recommendations Home Other Discharge Recommendations Recommend someone check up on pt a few times a day for the first few days home. Home Equipment Needs shower chair. Transportation Needs at Discharge Private Vehicle
[2019-10-14 11:53] VITALS: BP 99/72; PULSE 90; RESP 16; TEMP 35.9; O2SAT 97
--- NOTE | 2019-10-14 14:20 | PT.IIE ---
Surgical History (Last Reviewed 10/13/19 @ 23:10 by Darryl Ellison MD) Fibroids (Resolved 1977) History of cardiac radiofrequency ablation (Acute) Medical History (Last Reviewed 10/14/19 @ 04:37 by PREET Girmes) Age-related osteoporosis without current pathological fracture (Chronic 07/07/17) Asthma (Chronic Unknown) Atrial fibrillation (Chronic ~2004) Atrial flutter (Chronic Unknown) Cardiac arrhythmia (Chronic Unknown) Cataracts, bilateral (Chronic Unknown) Chickenpox (Resolved 1941) Colon polyps (Chronic Unknown) Essential hypertension (Chronic) Hemorrhoids (Chronic Unknown) History of cardioversion (Resolved 2008) History of GI bleed (Resolved Unknown) Hx of multiple pulmonary nodules (Resolved Unknown) Hyperlipemia (Chronic Unknown) Hyperlipidemia (Chronic) Hypertension (Chronic Unknown) Hypothyroidism (Chronic) Hypothyroidism (Chronic Unknown) Measles (Resolved ~1941) Multinodular thyroid (Chronic Unknown) Mumps (Resolved ~1941) Osteopenia (Chronic Unknown) Osteoporosis (Chronic ~2014) Urinary incontinence (Chronic Unknown) Vertigo (Chronic ~2012) Physical Therapy Inpatient Evaluation/Re-Eval M1 PT/OT-IP Prior Functional Status Start: 10/14/19 12:49 Freq: NEEDED Status: Active Protocol: Document 10/14/19 12:50 CGR (Rec: 10/14/19 12:58 CGR [id number]) Medical Review Prior Functional Status Medical History Reviewed Yes Communication Pt is an effective verbal communicator. Mobility and Gait Pt was IND without AD Activities of Daily Living and IADL's Pt was IND without AD Social History Household Members none Living Arrangements House Number of Floors (Floors) Two Floors Number of Stairs To Enter/Railing? Pt has no stairs to enter. Pt has a ramp on the deck. Home Environment High Toilet,Tub/Shower Home Equipment Grab Bars Near Toilet,Grab Bars In Shower Employment Status Retired Additional Social History Comment Pt lives alone with her cat but she has very supportive neighbors who can check in on her. Pt states that she can get DME if needed. M1 PT/OT-IP Prior Functional Status Start: 10/14/19 16:33 Freq: NEEDED Status: Active Protocol: Document 10/14/19 14:20 AB (Rec: 10/14/19 16:56 AB [id number]) Medical Review Prior Functional Status Medical History Reviewed Yes Communication able to make needs known Mobility and Gait pt stated that she is independent with all mobilities and ambulation without AD; still able to drive prior to admission Activities of Daily Living and IADL's independent Social History Household Members none Living Arrangements House Number of Floors (Floors) Two Floors Number of Stairs To Enter/Railing? no steps to enter stated that she can stay on the main level of the house Home Environment High Toilet,Tub/Shower,Ramp Home Equipment Straight Cane,Grab Bars Near Toilet,Grab Bars In Shower Additional Social History Comment stated that she has a traffic investigator that comes in to assist her with house cleaning M2 PT-IP Current Condition Start: 10/14/19 16:33 Freq: NEEDED Status: Active Protocol: Document 10/14/19 14:20 AB (Rec: 10/14/19 16:56 AB [id number]) Physical Therapy Current Condition Current Condition Evaluation Date 10/14/19 Treatment Diagnosis GLF; difficulty in walking Onset Date 10/13/19 M3 PT-IP Subjective Start: 10/14/19 16:33 Freq: NEEDED Status: Active Protocol: Document 10/14/19 14:20 AB (Rec: 10/14/19 16:56 AB [id number]) Subjective Physical Therapy Visit Type Type Initial Evaluation Visit Start Time 14:20 Visit Stop Time 15:02 Total Visit Minutes 42 Number of ABRASIVE GRINDER Visits 0 Physical Therapy Visit Comments Patient Comments pt is agreeable to do PT Therapy Pain Assessment Pain When Pain Assessed At Rest Pain Present Pain Present Pain Reported Location Head Scale Used c/o a headache but pain scale not stated M4 PT-IP Mobility and Gait Start: 10/14/19 16:33 Freq: NEEDED Status: Active Protocol: Document 10/14/19 14:20 AB (Rec: 10/14/19 16:56 AB [id number]) PT-Bed Mobility Assessment Supine to Sit Supine to Sit Standby Assistance Sit to Supine Sit to Supine Standby Assistance PT-Transfer Assessment Sit to and From Stand Sit to and from Stand Contact Guard Assistance,1 Person Assistance,Use of Upper Extremities Equipment Transfer Assistive Device None,Gait Belt Orthotic/Prosthetic Devices or Brace: No Transfers Transfer Destination Chair Transfer Technique ambulated without AD Transfer Ability Level of Assist Contact Guard Assistance,1 Person Assistance,Use of Upper Extremities Comments Mobility Comments pt completed supine to sit SBA ; able to sit on EOB SBA. completed sit to stand CGA and ambulated in room CGA. pt tends to hold on to counter / bed for support. pt with slight confusion and stated that she does not remember her fall. pt requested to use the toilet. ambulated to the toilet without AD CGA. able to get up from the toilet with grab bars CGA and ambulated towards the sink CGA without AD. able to maintain standing CGA while completing handwashing. pt stated that she will sit up on the chair but was walking towards the bed. Pt stated that she forgot that she wants to sit up. positioned pt on chair. call light and table placed within reach. informed pt regarding safety concerns and pt agreed. stated that she does not feel like she can be by herself anymore since she cannot remember that she had a fall. stated that she has to hire somebody but for the mean time, she has her neighbors that checks up on her and she is also considering getting a life alert. Gait Assessment Gait Gait Assistance Required: Contact Guard Assist Distance (Feet) 30 Able to Maintain Weight Bearing Status Yes During Gait Assistive Devices Assistive Device None,Gait Belt Orthotic/Prosthetic Devices or Brace: No Gait Deviations General Gait Pattern Antalgic,Decreased Stride Length,Decreased Feet Clearance,Lateral Trunk Lean Factors Limiting Gait Function Factors Limiting Gait Function Decreased Strength,Pain,Poor Balance,Poor Safety Awareness Comments Gait Comments pt ambulated in room ~ 30 ft x 2 without AD CGA and cues. presents with unsteady antalgic gait with increase lateral trunk lean to the R. informed pt regarding PT plan to assess ambulation using SPC to assist with stability and safety and pt agreed. Stair Climbing Assessment Evaluation Level of Assist On Stairs Moderate Assistance,1 Person Assistance Devices Stair Climbing Assistive Devices Left Railing,Right Railing Technique/Endurance Stair Climbing Direction Ascend and Descend Stair Climbing Technique Step to Step Number of Steps Climbed 1 Query Text: Stair Climbing Set # Repetitions (reps) 2 Comments Stair Climbing Comments completed up/down step stool using R rail with first set and then L rail. pt is unsteady and required mod A. pt stated that she will not go upstairs for now at this time. PT-Balance Assessment Sitting Balance and Reactions Static Sitting Balance Ability Good Dynamic Sitting Balance Ability Good Standing Balance and Reactions Static Standing Balance Ability Good Dynamic Standing Balance Ability Fair Device Used without AD M5 PT-IP Objective Assessments Start: 10/14/19 16:33 Freq: NEEDED Status: Active Protocol: Document 10/14/19 14:20 AB (Rec: 10/14/19 16:56 AB [id number]) Orientation Orientation/Cognition Level of Alertness Alert Safety Awareness Decreased Safety Awareness Memory Description Short Term Impaired Comments with slight confusion Gross Range of Motion Lower Extremity ROM Assessment Within Functional Limits Strength Lower Extremity Strength Assessment Within Functional Limits Coordination Assessment Gross Coordination Gross Coordination WNL Sensation Assessment Sensation Gross Sensation WNL Muscle Tone Muscle Tone WNL Yes M6 PT-IP Treatment Start: 10/14/19 16:33 Freq: NEEDED Status: Active Protocol: Document 10/14/19 14:20 AB (Rec: 10/14/19 16:56 AB [id number]) Physical Therapy Treatment Education Education Provided Safety M7 PT-IP Assessment and Plan Start: 10/14/19 16:33 Freq: NEEDED Status: Active Protocol: Document 10/14/19 14:20 AB (Rec: 10/14/19 16:56 AB [id number]) PT Summary Assessment and Plan Potential Rehabilitation Potential Good Status of Condition at Evaluation Stable Summary Impairments Pain,ROM,Strength,Balance, Cognition,Bed Mobility, Transfers,Gait,Activity Tolerance Assessment Summary pt requiring CGA with ambulation without AD and presents with unsteady antalgic gait. will conduct gait training using SPC next tx session to assess safety and stability and pt agreed. pt lives alone and will needs assistance at home for safety and homehealth services. will continue to assess progress. Goals Bed Mobility Goal Independent Transfer Goal Independent,Cane Gait Goal Independent,Cane Gait Distance 150 Days to Meet Goals 5 Frequency of Treatment Frequency Of Treatment Once a Day Treatment Plan Physical Therapy Treatment Plan Bed Mobility Training,Transfer Training,Gait Training, Therapeutic Exercise,Balance Retraining,Discharge Planning, Hot or Cold Pack,Neuromuscular Re-ed,Coordination Retraining Other Recommendations and Next Treatment ambulation using SPC Focus Recommendations To Nursing Amount of Assist Needed 1 Person Assist Discharge Recommendations PT Discharge Recommendations Home with Assistance,Home Health Transportation Needs at Discharge Private Vehicle
--- NOTE | 2019-10-14 15:30 | CM.DANOTE ---
Discharge Planning/Care Management DCP: assessment: case received, EMR reviewed and met this morning with pt in Team Bedside Rounds. Introduced self and role. Pt is an 83 year old female who admitted to care of hospitalist team late last night. Isabel Templeton/night hospitalist completed the H&P early this morning. Dr. Orozco saw pt in Rounds, noted that the full dx was stilll in process, ordered PT and OT. MRI was planned for this afternoon at 1500. Admission status: Confirmed by UR RN Dilan: OBS Payer: Medicare and [facility] Medical PCP: Kiera Aldana Pt reports she is very independent at baseline. Exercises daily. uses no assistive device. She sustained a ground level fall, fell face forward and with a broken tooth as result. Pt says she still is having trouble remembering the details of the fall. Somehow I called the ambulance. Pt reports she has no family in the area. She has a helpful neighbor Kwesi Cooley who has been checking on her since she arrived and helping with her medication list etc. She says she will likely either be picked up by Kwesi at d/c or will take a taxi to her home here in [place]. P: will check back in tomorrow and follow accordingly. CM Discharge Assessment Start: 10/14/19 15:27 Freq: Status: Active Protocol: Document 10/14/19 15:28 ITV (Rec: 10/14/19 15:29 ITV [id number]) Discharge Planning Assessment Advance Directives? Yes History Provided By Patient,Medical Record Prior Living Arrangements House Household Members none Comment lives with her cat Independent with ADL's Yes Is patient alert and oriented? Yes Review Status In Process
--- NOTE | 2019-10-14 15:46 | P.EN_ITS ---
Event Note Date Patient Seen: 10/14/19 Event Note: The patient is an 83-year-old female who [facility]. She appears to have suffered a contusion. She has no memory for the event prior to her fall. Despite that she was able to call 911 and was admitted to the hospital for further evaluation. She fell forward and knocked out to teeth. She has a mild fuzziness, headache. She was able to get up and ambulate with physical therapy and appears to be a contact guard assist. The patient lives home alone. She has not required any assistance previously. Her head CT was negative. She underwent head MRI today. Brain MRI shows no acute infarct, and no high-grade stenosis. This point will continue physical therapy and occupational therapy. With plans for discharge in the next 24-48 hours.
[2019-10-14 15:53] VITALS: BP 103/48; PULSE 85; RESP 18; TEMP 36.6; O2SAT 98
--- NOTE | 2019-10-14 19:46 | PC.NURSE ---
Pt went into A fib per telemetry at approx 1940. Gave 2100 dose of metoprolol 25 mg po early. Advised CHUTE PULLER Jareth that both am and pm doses had needed to be given early and to consider increasing her doses. Pt HR is currently in 110 - 116 range and she states she feels fine, but her heart is fluttering. Continue to monitor.
--- NOTE | 2019-10-14 19:55 | PC.NURSE ---
Hope from Lab called to advise that a 1230 troponin draw was missed today. She obtained the 1830 draw which is pending and the am 0630 draw was WNL.
[2019-10-14 19:59] LABS: Troponin I < 0.012 ng/mL (0.01-0.034)
[2019-10-14 20:20] VITALS: BP 116/84; PULSE 108; RESP 18; TEMP 35.9; O2SAT 95
[2019-10-15] VITALS: BP 119/78; PULSE 72; RESP 16; TEMP 36.2; O2SAT 96
[2019-10-15 05:11] LABS: Magnesium 2.3 mg/dL (1.6-2.3)
[2019-10-15 05:17] VITALS: BP 114/61; PULSE 80; RESP 16; TEMP 36.1; O2SAT 97
[2019-10-15 05:47] LABS: Thyroid Stimulating Hormone 1.54 uIU/mL (0.47-4.68)
[2019-10-15] MEDS: LEVOTHYROXINE 100 MCG TABLET PO (06:05)
[2019-10-15 08:19] VITALS: BP 121/70; PULSE 71; RESP 15; TEMP 36.3; O2SAT 98
--- NOTE | 2019-10-15 08:46 | P.DS_ITS ---
History of Present Illness History of Present Illness Date Patient Seen: 10/15/19 Chief complaint: GLF,head injury,MOD Trauma Narrative: Ruma Yates is a pleasant 83-year-old female with atrial fibrillation, history of cardiac ablation, and hypothyroidism who was in her usual state of health when she apparently fell, hitting her head and face. She is unable to tell me how this happened, how she got to the hospital, and loses track of the fact that she is in the hospital. She also repeatedly asks about whether not she has received her metoprolol tonight and that her neighbor is s upposed to go over to her house and feed her cat. The patient was requested for admission due to possible post concussive syndrome. Per the ED report, EMS was called when she fell and they brought her here. She denies feeling dizzy, recent illness, headache, she does have pain in her mouth particularly where she fractured 2 lower teeth, denies shortness of breath, chest pain, dysuria, nausea or vomiting, diarrhea or constipation. She denies any problems with mobility of her upper lower extremities. In the emergency department they did a head and face CT as well as a C-spine CT all of which were negative. Her temp was 97.5?, blood pressure 123/81, heart rate 84, respiratory rate 16, oxygen saturation 96%, her weight is 78 kg with a BMI of 25.4. WBC 7.0, RBC 4.4, hemoglobin 13.2, hematocrit 39.3, platelet count 190, sodium 133, potassium 4.0, chloride 100, CO2 26, BUN 30, creatinine 0.7 with a GFR of greater than 60, glucose 102, calcium 10.4, liver enzymes within normal limits, her troponin was 0.040, UA was negative for UTI, and COVID-19 was negative. Discharge Providers Provider Date of admission: 10/13/19 21:38 Discharge Date: 10/15/19 Primary care physician: Genia Aldana PA-C Consults: 10/14/19 00:26 Consult to Occupational Therapy Evaluate & Treat Comment: cog eval, confusion, ammnesia Physician Instructions: Evaluate and treat 10/14/19 12:32 Consult to Physical Therapy Evaluate & Treat Comment: Physician Instructions: Evaluate and Treat Discharge provider: Karly Orozco MD Summary Hospital Course Discharge Diagnosis: 1. Ground level fall 2. Concussion following a fall 3. Facial contusion, with loss of 2 front teeth 4. Persistent atrial fibrillation on anticoagulation 5. Hypothyroid 6. Hypertension 7. Osteoporosis 8. As Hospital Course: Patient was admitted to the hospital following a ground level fall. She has suffered a concussion which was manifested as confusion and memory loss following the fall. Her head CT in the emergency department was unremarkable for an internal bleed. In addition she had a facial CT which showed some swelling of the right face. Patient lost 2 front teeth after the fall. In addition she underwent an MRI to rule out the possibility of stroke. There was evidence of 2 small parietal cortical strokes but no acute infarct. There were no intracranial lesions noted. There were no carotid lesions noted. There was no evidence of an intracranial bleed on MRI as well. No acute stroke was noted as well. The patient was somewhat ?foggy the 1st day. She initially was perseverating. That completely resolved. She was able to get up with contact guard assist without difficulty. The patient reports she feels back to normal today. She is eager to return home. Neighbor will pick her up and drive her home. Patient is deemed appropriate for discharge today. Exam Vital Signs (past 8 hours): - 10/15/19 05:17 10/15/19 08:19 Temperature 97.0 F L 97.3 F L Pulse Rate 80 71 Respiratory Rate 16 15 Blood Pressure 114/61 121/70 Pulse Oximetry 97 98 Oxygen Delivery Method Room Air Oxygen Flow Rate 0 Narrative Exam Narrative: Pleasant female resting comfortably HEENT: Normocephalic, bruising on the right side of the face with minimal swelling, front teeth are missing, oropharynx is clear Lungs: Clear to auscultation Cardiac exam: Regular rate rhythm normal S1-S2 Abdomen: Soft and nontender Extremity: No edema Objective Labs Result Diagrams: 10/14/19 06:35 10/14/19 06:35 Labs: Laboratory Results - last 24 hr 10/14/19 10/15/19 10/15/19 19:30 04:49 04:49 Magnesium 2.3 Troponin I < 0.012 TSH 1.54 Discharge Plan Discharge Plan Discharge Problem: Concussion, Fracture of tooth (traumatic), initial encounter for closed fracture Patient Disposition: Home Discharge orders & Medications Prescriptions: Continued albuterol sulfate [Ventolin HFA] 90 mcg/actuation HFA aerosol inhaler 2 puff INHALATION DAILY PRN (Reason: Dyspnea) RF: 0 cholecalciferol (vitamin D3) [Vitamin D3] 2,000 unit Tablet 2,000 unit PO DAILY Qty: 0 RF: 0 metoprolol tartrate 25 MG tablet 25 mg PO BID Qty: 0 RF: 0 levothyroxine 100 mcg tablet 100 mcg PO QAM Qty: 90 RF: 0 Eliquis 5 mg tablet 5 mg PO BID RF: 0 Flovent HFA 110 mcg/actuation HFA aerosol inhaler 1 puff INHALATION BID RF: 0 calcium carbonate [Calcium 500] 500 mg calcium (1,250 mg) tablet 500 mg PO DAILY RF: 0 dofetilide [Tikosyn] 250 mcg capsule 250 mcg PO Q12H RF: 0 magnesium oxide 400 mg magnesium capsule 400 mg PO DAILY RF: 0 Follow up/Referrals: Genia Aldana PA-C [Primary Care Provider] - Discharge Health Status Multidrug resistant organism: No MDRO Diet/Activity/Treatments Diet: Low-sodium and Low-cholesterol Activity: as tolerated Discharge Data Primary Care Provider: Genia Aldana Attending Provider: Isabel Templeton Admit Date/Time: 10/13/19 21:38 Quality VTE Deep Vein Thrombosis/Pulmonary Embolism Present on Admission: No
[2019-10-15] MEDS: DOFETILIDE 250 MCG PO (09:27)
[2019-10-15] MEDS: METOPROLOL IR 25 MG TABLET PO (09:28)
[2019-10-15] MEDS: APIXABAN 5 MG TABLET PO (09:28)
--- NOTE | 2019-10-15 10:16 | PT.IPTN ---
Physical Therapy Treatment Note M2 PT-IP Current Condition Start: 10/14/19 16:33 Freq: NEEDED Status: Active Protocol: Document 10/14/19 14:20 AB (Rec: 10/14/19 16:56 AB [id number]) Physical Therapy Current Condition Current Condition Evaluation Date 10/14/19 Treatment Diagnosis GLF; difficulty in walking Onset Date 10/13/19 M3 PT-IP Subjective Start: 10/14/19 16:33 Freq: NEEDED Status: Active Protocol: Document 10/15/19 10:16 AB (Rec: 10/15/19 13:16 AB [id number]) Subjective Physical Therapy Visit Type Type Treatment Note Visit Start Time 10:16 Visit Stop Time 10:45 Total Visit Minutes 29 Number of PLASTIC PRESS OPERATOR Visits 0 Physical Therapy Visit Comments Patient Comments pt is agreeable to do PT Therapy Pain Assessment Pain Present Pain Present Denied Pain M4 PT-IP Mobility and Gait Start: 10/14/19 16:33 Freq: NEEDED Status: Active Protocol: Document 10/15/19 10:16 AB (Rec: 10/15/19 13:16 AB [id number]) PT-Transfer Assessment Sit to and From Stand Sit to and from Stand Standby Assistance Gait Assessment Gait Gait Assistance Required: Standby Assistance,Contact Guard Assist Distance (Feet) 30 Able to Maintain Weight Bearing Status Yes During Gait Assistive Devices Assistive Device None,Gait Belt,Straight Cane Orthotic/Prosthetic Devices or Brace: No Gait Deviations General Gait Pattern Antalgic,Decreased Stride Length,Decreased Feet Clearance,Lateral Trunk Lean Factors Limiting Gait Function Factors Limiting Gait Function Decreased Activity Tolerance, Poor Balance Comments Gait Comments pt completed sit to stand SBA. ambulated without AD SBA ~ 30 ft with slight LOB but with recovery. educated pt on how to use SPC. Assessed ambulation using SPC and pt completed in room 30 ft SBA. pt is steadier with SPC and pt agreed. M5 PT-IP Objective Assessments Start: 10/14/19 16:33 Freq: NEEDED Status: Active Protocol: Document 10/14/19 14:20 AB (Rec: 10/14/19 16:56 AB [id number]) Orientation Orientation/Cognition Level of Alertness Alert Safety Awareness Decreased Safety Awareness Memory Description Short Term Impaired Comments with slight confusion Gross Range of Motion Lower Extremity ROM Assessment Within Functional Limits Strength Lower Extremity Strength Assessment Within Functional Limits Coordination Assessment Gross Coordination Gross Coordination WNL Sensation Assessment Sensation Gross Sensation WNL Muscle Tone Muscle Tone WNL Yes M6 PT-IP Treatment Start: 10/14/19 16:33 Freq: NEEDED Status: Active Protocol: Document 10/15/19 10:16 AB (Rec: 10/15/19 13:16 AB [id number]) Physical Therapy Treatment Education Education Provided Safety M7 PT-IP Assessment and Plan Start: 10/14/19 16:33 Freq: NEEDED Status: Active Protocol: Document 10/15/19 10:16 AB (Rec: 10/15/19 13:16 AB [id number]) PT Summary Assessment and Plan Potential Rehabilitation Potential Good Summary Impairments Pain,ROM,Strength,Balance,Bed Mobility,Transfers,Gait, Activity Tolerance Progress Towards Goals Progressing Toward Goals Assessment Summary pt requiring SBA with mobility and plans to go home today. informed pt regrading use of SPC for ambulation and pt agreed. also informed pt to look into getting a life alert and pt agreed. pt may go home when medically stable. Goals Bed Mobility Goal Independent Transfer Goal Independent,Cane Gait Goal Independent,Cane Gait Distance 150 Days to Meet Goals 5 Frequency of Treatment Frequency Of Treatment Once a Day Treatment Plan Physical Therapy Treatment Plan Bed Mobility Training,Transfer Training,Gait Training, Therapeutic Exercise,Balance Retraining,Discharge Planning, Hot or Cold Pack,Neuromuscular Re-ed,Coordination Retraining Other Recommendations and Next Treatment ambulation using SPC Focus Recommendations To Nursing Amount of Assist Needed 1 Person Assist Discharge Recommendations PT Discharge Recommendations Home with Assistance,Home Health Transportation Needs at Discharge Private Vehicle
--- NOTE | 2019-10-15 10:31 | PC.NURSE ---
Addendum entered by Elvis Nicolas R.N. 10/15/19 11:23: Pt readied for D/c. IV discontinued pre protocal, cannula intact. Instructions given. Pt states understanding and states she will let her Dentist, Shot Grinder Operator and PCP know about her hospitalization and follow up with each of them. Pt escorted to private care in w/c by Linh MADRIGAL Original Note: Pt wakes easily, follows commands NIH 0 Pt offers no overt c/o than losing her front teeth in fall. Pt has had b'fast, been up to BR and has had a shower. Dressed in her clothes and readying for discharge. Neighbour coming at 11:30 to pick her up.
== END 2019-10-15 11:05 | disposition home or self-care (01) ==
LOC: ED 19:06 → AC 21:39
PROVIDERS: Admitting Provider Nurse Practitioner Family; Emergency Provider Emergency Medicine; PCP Physician Assistant; Referring Provider Emergency Medicine; Visit Provider Nurse Practitioner Family
DX: R51 Headache (principal); W18.30XA Fall on same level, unspecified, initial encounter; K08.119 Complete loss of teeth due to trauma, unspecified class; Y92.009 Unspecified place in unspecified non-institutional (private) residence as the place of occurrence of the external cause; S06.0X9A Concussion with loss of consciousness of unspecified duration, initial encounter; S00.83XA Contusion of other part of head, initial encounter; I48.19 Other persistent atrial fibrillation; E03.9 Hypothyroidism, unspecified; I10 Essential (primary) hypertension; M81.0 Age-related osteoporosis without current pathological fracture; Z11.59 Encounter for screening for other viral diseases
CPT/HCPCS: 36415; 36592; 70450; 70486; 70548; 70553; 72125; 80048; 80053; 81003; 81015; 82550; 83735; 84443; 84484; 85025; 85610; 85730; 87635; 93005; 93010; 97161; 97165; 97530; 99284; G0378; A9579

== ENCOUNTER → 2019-12-16 12:20 | Outpatient (CLI) | payer MEDICARE, OTHER, SELFPAY ==
[2019-10-13 21:50] VITALS: BMI 25.4
--- NOTE | 2019-12-16 12:36 | DI.MG.S_ITS ---
Patient Name: HUGO ALVARADO date: 1935 Sex: F Attending Physician: Katya Indications: Date: 12/16/2019 12:29 At the request of: NIA AGUERO Procedure: MM screening mammo BI BILATERAL DIGITAL SCREENING MAMMOGRAM 3D/2D WITH CAD: 12/16/2019 CLINICAL: Routine screening. Comparison is made to exams dated: 08/27/2018 mammogram, 07/01/2017 mammogram - [facility], and 06/30/2016 mammogram - [facility]. The tissue of both breasts is extremely dense, which lowers the sensitivity of mammography. Current study was also evaluated with a Computer Aided Detection (CAD) system. No significant masses, calcifications, or other findings are seen in either breast. There has been no significant interval change. IMPRESSION: NEGATIVE There is no mammographic evidence of malignancy. A 1 year screening mammogram is recommended. This exam was interpreted at Station ID: [id number]. NOTE: For mammograms, a report in lay terms will be sent to the patient. Approximately 15% of breast malignancies will not be visualized mammographically. In the management of a palpable breast mass, a negative mammogram must not discourage biopsy of a clinically suspicious lesion. Electronically Signed By: Navneet mccain/jose:12/16/2019 12:52:59 letter sent: Normal Exam ACR BI-RADS Category 1: Negative [id number]
== END ==
PROVIDERS: PCP Physician Assistant; Referring Provider Physician Assistant; Visit Provider Physician Assistant
DX: Z12.31 Encounter for screening mammogram for malignant neoplasm of breast (principal)
CPT/HCPCS: 77063; 77067

== ENCOUNTER → 2020-02-08 12:16 | Outpatient (CLI) | payer MEDICARE, OTHER, SELFPAY ==
[2019-10-13 21:50] VITALS: BMI 25.4
[2020-02-08 14:47] LABS: BUN Creatinine Ratio 38.6 (6-22); Blood Urea Nitrogen 22 mg/dL (7-17); Calcium 10.2 mg/dL (8.4-10.2); Carbon Dioxide 31 mmol/L (22-32); Chloride 102 mmol/L (98-107); Estimated Glomerular Filt Rate > 60.0 mL/min (>60); Glucose 86 mg/dL (80-110); HEMOLYSIS < 15 (0-50); Potassium 4.7 mmol/L (3.4-5.1); Sodium 137 mmol/L (137-145)
== END ==
PROVIDERS: PCP Physician Assistant; Referring Provider Internal Medicine Cardiovascular Disease; Visit Provider Internal Medicine Cardiovascular Disease
DX: I48.19 Other persistent atrial fibrillation (principal); I48.4 Atypical atrial flutter
CPT/HCPCS: 36415; 80048

== ENCOUNTER → 2020-06-04 10:04 | Outpatient (CLI) | payer MEDICARE, OTHER, SELFPAY ==
[2019-10-13 21:50] VITALS: BMI 25.4
[2020-06-04 11:32] LABS: BUN Creatinine Ratio 23.1 (6-22); Blood Urea Nitrogen 15 mg/dL (7-17); Carbon Dioxide 31 mmol/L (22-32); Chloride 102 mmol/L (98-107); Estimated Glomerular Filt Rate > 60.0 mL/min (>60); Glucose 93 mg/dL (80-110); HEMOLYSIS < 15 (0-50); Potassium 4.9 mmol/L (3.4-5.1); Sodium 135 mmol/L (137-145)
== END ==
PROVIDERS: PCP Physician Assistant; Referring Provider Internal Medicine Cardiovascular Disease; Visit Provider Internal Medicine Cardiovascular Disease
DX: I48.19 Other persistent atrial fibrillation (principal); I48.4 Atypical atrial flutter
CPT/HCPCS: 36415; 80048

== ENCOUNTER → 2020-06-15 10:47 | Outpatient (CLI) | payer MEDICARE, OTHER, SELFPAY ==
[2019-10-13 21:50] VITALS: BMI 25.4
[2020-06-15] MEDS: COVID-19 VACC, Ad26(JANSSEN)/PF 0.5 ML IM (10:53)
== END ==
PROVIDERS: PCP Physician Assistant; Visit Provider Internal Medicine
DX: Z23 Encounter for immunization (principal)
CPT/HCPCS: 0031A; 91303

== ENCOUNTER → 2020-09-14 09:14 | Outpatient (CLI) | payer MEDICARE, OTHER, SELFPAY ==
[2019-10-13 21:50] VITALS: BMI 25.4
[2020-09-14 10:08] LABS: Add Manual Diff / Slide Review NO; Basophils Absolute Auto 0 /uL (0-100); Basophils Percent Auto 0.8 % (0-2); Eosinophils Absolute Auto 100 /uL (0-450); Eosinophils Percent Auto 2.5 % (2-4); Hematocrit 39.1 % (36-46); Hemoglobin 13.3 g/dL (12.0-16.0); Lymphocytes Absolute Auto 1500 /uL (1100-4500); Lymphocytes Percent Auto 27.9 % (25-40); Mean Corpuscular HGB Conc 33.9 % (30-36); Mean Corpuscular Hemoglobin 30.3 PG (26-34); Mean Corpuscular Volume 89.5 fL (80-100); Monocytes Absolute Auto 500 /uL (0-900); Monocytes Percent Auto 9.4 % (3-14); Neutrophils Absolute Auto 3200 /uL (1500-7000); Neutrophils Percent Auto 59.4 % (50-75); Platelet Count 191 X10^3/uL (150-400); Red Blood Cell Count 4.37 X10^6/uL (4.0-5.2); Red Cell Distribution Width 13.8 % (11.6-14.8); White Blood Cell Count 5.3 X10^3/uL (4.5-11.0)
[2020-09-14 10:17] LABS: Alanine Aminotransferase 34 IU/L (<35); Albumin Globulin Ratio 1.3 (1.0-2.8); Alkaline Phosphatase 66 U/L (38-126); Aspartate Aminotransferase 32 IU/L (14-36); BUN Creatinine Ratio 41.1 (6-22); Bilirubin Total 0.5 mg/dL (0.2-1.3); Blood Urea Nitrogen 23 mg/dL (7-17); Carbon Dioxide 31 mmol/L (22-32); Chloride 101 mmol/L (98-107); Cholesterol 206 mg/dL (140-199); Estimated Glomerular Filt Rate > 60.0 mL/min (>60); Glucose 93 mg/dL (80-110); HDL Cholesterol 60 mg/dL (40-60); HEMOLYSIS < 15 (0-50); LDL Cholesterol Calculated 135 mg/dL (<100); Potassium 4.9 mmol/L (3.4-5.1); Sodium 135 mmol/L (137-145); Triglycerides 57 mg/dL (35-150)
[2020-09-14 10:40] LABS: Vitamin D 25 Hydroxy (D3) 49.3 ng/mL (30.0-100.0)
[2020-09-14 10:53] LABS: TSH w/ Reflex to FT4 0.65 uIU/mL (0.47-4.68)
== END ==
PROVIDERS: PCP Physician Assistant; Referring Provider Physician Assistant; Visit Provider Physician Assistant
DX: I48.19 Other persistent atrial fibrillation (principal); I48.4 Atypical atrial flutter
CPT/HCPCS: 80053; 80061; 82306; 84443; 85025

== ENCOUNTER → 2020-10-15 10:43 | Outpatient (CLI) | payer MEDICARE, OTHER, SELFPAY ==
[2019-10-13 21:50] VITALS: BMI 25.4
--- NOTE | 2020-10-15 | DI.RAD.S_ITS ---
PROCEDURE: XR DEXA AXIAL SKELETON INDICATIONS: Age-related osteoporosis without current pathologi COMPARISON: [facility], CR, XR DEXA AXIAL SKELETON, 10/12/2019, 13:28. FINDINGS: This blank DEXA report has been sent in error by the PACS system. The correct and complete report will be forthcoming in 1-2 days. Thank you for your patience and understanding. Dictated by: Naila Valadez MD, PhD on 10/15/2020 at 14:00 Approved by: Naila Valadez MD, PhD on 10/15/2020 at 14:01
== END ==
PROVIDERS: PCP Physician Assistant; Referring Provider Physician Assistant; Visit Provider Physician Assistant
DX: M81.0 Age-related osteoporosis without current pathological fracture (principal); Z78.0 Asymptomatic menopausal state; E07.9 Disorder of thyroid, unspecified; Z82.62 Family history of osteoporosis; Z87.891 Personal history of nicotine dependence
CPT/HCPCS: 77080

== ENCOUNTER 2020-11-27 19:25 | Observation (INO) | payer MEDICARE, OTHER, SELFPAY ==
[2019-10-13 21:50] VITALS: BMI 25.4
[2020-11-27] VITALS (29 sets, daily range): BP systolic 99–141; BP diastolic 57–95; PULSE 81–156; RESP 9–25; TEMP 36.6; O2SAT 96–99; BMI 27.9
--- NOTE | 2020-11-27 19:32 | DI.RAD.S_ITS ---
PROCEDURE: XR CHEST 1V INDICATIONS: pain fall TECHNIQUE: One view of the chest was acquired. COMPARISON: [facility], CR, XR CHEST 1V, 07/26/2018, 7:58. FINDINGS: Surgical changes and devices: None. Lungs and pleura: Multiple small nodules project over the lungs bilaterally No pleural effusions or pneumothorax. Mediastinum: Mediastinal contours appear normal. Heart is enlarged Bones and chest wall: No suspicious bony lesions. Overlying soft tissues appear unremarkable. IMPRESSION: Multiple small nodules project over the lungs bilaterally. Miliary disease including metastatic disease is not excluded. Recommend standard two view of the chest when clinically feasible. Dictated by: Naila Valadez MD, PhD on 11/27/2020 at 20:58 Approved by: Naila Valadez MD, PhD on 11/27/2020 at 20:59
--- NOTE | 2020-11-27 19:32 | DI.CT.S_ITS ---
PROCEDURE: CT HEAD/BRAIN WO CON INDICATIONS: fall on eliquis TECHNIQUE: Noncontrast 4.5 mm thick angled axial sections acquired from the foramen magnum to the vertex, with coronal and sagittal reformats. For radiation dose reduction, the following was used: automated exposure control, adjustment of mA and/or kV according to patient size. COMPARISON: None. FINDINGS: Image quality: Excellent. CSF spaces: Basal cisterns are patent. No extra-axial fluid collections. The ventricles are symmetric in size and shape. Brain: No intracranial bleeds or masses. There is cerebral volume loss for age, with resultant ventricular and sulcal prominence. There are periventricular and deep white matter chronic small vessel ischemic changes. There is intracranial internal carotid artery atherosclerosis. Skull and face: Hyperdense fluid noted the left frontal sinus compatible with intra sinus hemorrhage. Small amount of air is noted in the superior margin the left orbit. Findings suspicious for occult left superior orbit wall fracture. Sinuses: Visualized sinuses and mastoids are clear. IMPRESSION: 1. No acute intracranial disease process. 2. Acute hemorrhage in the left frontal sinus and air locule in the left orbit concerning for nondisplaced superior left orbit wall fracture. Recommend CT scan of face for additional evaluation Dictated by: Naila Valadez MD, PhD on 11/27/2020 at 20:35 Approved by: Naila Valadez MD, PhD on 11/27/2020 at 20:39
--- NOTE | 2020-11-27 19:32 | DI.CT.S_ITS ---
PROCEDURE: CT FACIAL BONES WO CON INDICATIONS: fall on eliquis TECHNIQUE: Noncontrast 2.5 mm thick axial images acquired from the mandible through the frontal sinuses, with coronal and sagittal reformatting. For radiation dose reduction, the following was used: automated exposure control, adjustment of mA and/or kV according to patient size. COMPARISON: None. FINDINGS: Image quality: Excellent. Bones and teeth: Minimally displaced, segmented fracture of the superior left orbit wall is noted. Sinus hannah show no fracture or deformity. Nasal bones and septum are intact. Visualized portions of the mandible demonstrate no fractures or subluxation. Zygomatic arches are intact. Pterygoid plates are intact. Visualized portions of the skull base and auditory canals are intact. Lucency adjacent to the root of the right upper 2nd molar. Sinuses: Acute hemorrhage is noted in the left frontal sinus and left frontal recess. Mastoid air cells are aerated. Soft tissues: Left periorbital facial soft tissue swelling. No enlarged lymph nodes. No soft tissue lacerations or debris. Vascular: Visualized vascular structures appear normal in the absence of contrast. Bony vascular foramina and canals are intact. IMPRESSION: 1. Minimally displaced fracture involving the left superior orbit wall associated left frontal sinus hemorrhage. 2. Right upper 2nd molar periapical lucency/periapical abscess. Recommend dental consultation. Dictated by: Naila Valadez MD, PhD on 11/27/2020 at 20:41 Approved by: Naila Valadez MD, PhD on 11/27/2020 at 20:48
--- NOTE | 2020-11-27 19:32 | DI.CT.S_ITS ---
PROCEDURE: CT CERVICAL SPINE WO CON INDICATIONS: fall on eliquis TECHNIQUE: Noncontrast 3 mm thick sections acquired from the skull base to the T4 level. Sagittal and coronal reformats were then constructed. For radiation dose reduction, the following was used: automated exposure control, adjustment of mA and/or kV according to patient size. COMPARISON: [facility], CT, CT CERVICAL SPINE WO CON, 10/13/2019, 18:30. FINDINGS: Image quality: Excellent. Bones: Fracture involving the anterior-inferior corner of the C5 vertebral body. Visualized superior ribs are intact. Spine degenerative disc disease and facet arthropathy. Soft tissues: Prevertebral soft tissues are normal in thickness. No paravertebral hematomas. No apical pneumothoraces. IMPRESSION: 1. Fracture involving the anterior inferior C5 vertebral body. 2. Findings telephoned to Dr. oSw on November 27, 2020 at 8:53 p.m.. Dictated by: Naila Valadez MD, PhD on 11/27/2020 at 20:48 Approved by: Naila Valadez MD, PhD on 11/27/2020 at 20:57
--- NOTE | 2020-11-27 19:34 | ED.FALL ---
HPI - Fall General Chief Complaint: Head Injury Stated Complaint: GLF Time Seen by Provider: 11/27/20 19:32 History of Present Illness HPI Narrative: Patient is 85-year-old female history of atrial fibrillation on Eliquis. She presents with a mechanical fall. She states she took her evening medications including Tikosyn, she said the dog head rolled the carpet rug and she tripped on it. She fell hitting her head on a kitchen cabinet. EMS reports that she tried to stand up and fell again. She has multiple lacerations on her forehead. He does not quite remember what all happened. She says she typically feels some palpitations prior to taking her medications she did feel some but it was not any worse. She denies any dizziness lightheadedness or shortness of breath. She is not nauseous no vomiting. She has no numbness tingling or weakness. She presents as a modified trauma for fall on Eliquis Related Data Home Medications Medication Instructions Recorded Confirmed cholecalciferol (vitamin D3) 50 2,000 unit PO DAILY #0 09/18/16 11/28/20 mcg (2,000 unit) tablet (Vitamin D3) metoprolol tartrate 25 mg tablet 37.5 mg PO BID #0 09/18/16 11/28/20 apixaban 5 mg tablet (Eliquis) 5 mg PO BID 01/10/19 11/27/20 fluticasone propionate 110 1 puff INHALATION BID 01/10/19 11/28/20 mcg/actuation HFA aerosol inhaler (Flovent HFA) dofetilide 250 mcg capsule 250 mcg PO Q12H 02/23/19 11/28/20 (Tikosyn) magnesium oxide 400 mg PO DAILY 02/23/19 11/28/20 levalbuterol tartrate 45 1 - 2 puff INHALATION Q8HR PRN 11/27/20 11/27/20 mcg/actuation aerosol inhaler Previous Rx's Medication Instructions Recorded levothyroxine 100 mcg tablet 100 mcg PO QAM #90 tab 09/03/18 Allergies Allergy/AdvReac Type Severity Reaction Status Date / Time mold [MOLD] Allergy Intermediate LETHARGY Verified 05/11/19 08:41 AND STUFFY HEAD horseradish Allergy Mild Itching Verified 05/11/19 08:41 polyethylene glycol AdvReac Severe Swelling Verified 05/11/19 08:41 and itching in face naproxen [From Aleve] AdvReac Mild rash on Verified 05/11/19 08:41 face Sjhuybk-Iae-Kzu Reductase AdvReac Mild Nausea Verified 05/11/19 08:41 Inhibitor POLLEN Allergy Intermediate RUNNY Uncoded 02/23/19 09:50 NOSE, ITCHY WATERY EYES, LACK OF ENERGY DUST Allergy Mild HAY FEVER Uncoded 02/23/19 09:50 Review of Systems Review of Systems ROS Unobtainable: All systems reviewed & are unremarkable except as noted in HPI and below Constitutional Constitutional: Denies chills, Denies fatigue, Denies fever(s) and Denies headache(s) Eyes Eyes: Denies blurry vision, Denies change in vision and Denies diplopia ENT Ears, Nose, Mouth, and Throat: Denies dizziness and Denies headache(s) Cardiovascular Cardiovascular: Denies chest pain and Reports irregular heart rhythm Respiratory Respiratory: Denies chest congestion and Denies cough Gastrointestinal Gastrointestinal: Denies abdominal pain, Denies nausea and Denies vomiting Musculoskeletal Musculoskeletal: Reports arthralgias (Right wrist) Integumentary/Breasts Skin/Breast: Reports as per HPI Neurologic Neurologic: Denies confusion, Denies dizziness and Denies headache(s) Psychiatric Psychiatric: Denies confusion Endocrine Endocrine: Denies fatigue Patient History Medical History (Updated 11/28/20 @ 01:33 by Anisha Sow DO) Age-related osteoporosis without current pathological fracture (07/07/17) Asthma (Unknown) Atrial fibrillation (~2005) Atrial flutter (Unknown) Cardiac arrhythmia (Unknown) Cataracts, bilateral (Unknown) Chickenpox (1942) Colon polyps (Unknown) Essential hypertension Hemorrhoids (Unknown) History of cardioversion (2008) History of GI bleed (Unknown) Hx of multiple pulmonary nodules (Unknown) Hyperlipemia (Unknown) Hyperlipidemia Hypertension (Unknown) Hypothyroidism Hypothyroidism (Unknown) Measles (~1942) Multinodular thyroid (Unknown) Mumps (~1942) Osteopenia (Unknown) Osteoporosis (~2015) Urinary incontinence (Unknown) Vertigo (~2012) Surgical History Fibroids (1977) History of cardiac radiofrequency ablation Family History (Updated 10/14/19 @ 04:38 by PREET Grimes) Father Atrial fibrillation Mother Old age Brother No problems noted. Social History household members: none Smoking Status: Former smoker Tobacco: How many years used: 35 second hand exposure: Yes (When I was as a kid. My mom smoked.) alcohol intake: former substance use type: does not use Smoking Status: Former smoker Substance Use Type: does not use Exam Initial Vital Signs Initial Vital Signs: Vital Signs Temperature 97.9 F 11/27/20 19:35 Pulse Rate 140 H 11/27/20 19:35 Respiratory Rate 17 11/27/20 19:35 Blood Pressure 114/57 L 11/27/20 19:35 Pulse Oximetry 99 11/27/20 19:35 GENERAL: Alert 85-year-old female HEENT: Head crepitations or depressions multiple lacerations as described below. EYES: EOMI, NIKOLAI, left periorbital contusion with left superior laceration through eyebrow NECK: In C-collar CARDIOVASCULAR: Irregularly irregular tachycardic RESPIRATORY: Breath sounds equal bilaterally, no wheezes rales or rhonchi. No crepitations, no subcutaneous air, chest is nontender, no signs of trauma ABDOMEN: Soft, nontender. Normoactive bowel sounds all 4 quadrants. No guarding or rebound. BACK: Nontender vertebrae, no step-offs, no contusions PELVIS: stable. EXTREMITIES: Normal range of motion, no clubbing or edema. Right upper extremity: Mild right wrist pain and swelling distal radial pulse intact no obvious bony deformity Left upper extremity: Within normal limits Right lower extremity: Within normal limits Left lower extremity:Within normal limits NEUROLOGICAL: Cranial nerves II through XII grossly intact. Normal gait and speech. SKIN: See he diagram [facility] Adult Head Front: 1. 4 cm 2. 3 cm 3. 5 cm deep bone seen 4. 4 cm Procedures Laceration Repair Laceration 1: Site: scalp Side (If applicable): right Size (cm): 4 Description: linear Depth: simple, single layer Local Anesthetic: lidocaine 1% and with epi Amount of anesthesia used (mL): 5 Pre-repair: irrigated extensively and deep structures intact Skin layer closed with: nylon Size (cm): 4-0 Number of sutures: 5 Technique: simple, interrupted Laceration 2: Site: scalp Side (If applicable): right Size (cm): 3 Description: linear Depth: simple, single layer Local Anesthetic: lidocaine 1% and with epi Amount of anesthesia used (mL): 5 Pre-repair: wound explored, irrigated extensively and deep structures intact Skin layer closed with: nylon Size (cm): 4-0 Number of sutures: 3 Technique: simple, interrupted Laceration 3: Site: scalp Size (cm): 5 Description: irregular and contaminated (Small amount of debris) Depth: simple, single layer Local Anesthetic: lidocaine 1% and with epi Amount of anesthesia used (mL): 8 Pre-repair: wound explored, irrigated extensively, deep structures intact and extensive debridement Skin layer closed with: vicryl Size (cm): 4-0 Number of sutures: 5 Technique: simple, interrupted Laceration 4: Site: face (Left eyebrow) Side (If applicable): left Size (cm): 4 Description: stellate Depth: simple, single layer Local Anesthetic: lidocaine 1% and with epi Amount of anesthesia used (mL): 5 Pre-repair: wound explored, irrigated extensively and deep structures intact Skin layer closed with: nylon Size (cm): 4-0 Number of sutures: 4 Technique: simple, interrupted Course Orders Ordered: ED Orders 11/27/20 19:20 Complete Blood Count AUTO DIFF Stat Comprehensive Metabolic Panel Stat Magnesium Stat Partial Thromboplastin Time Stat Prothrombin Time INR Stat Troponin & CK Cardiac Panel Stat 11/27/20 19:32 CT cervical spine wo con Stat CT facial bones wo con Stat CT head/brain wo con Stat XR chest 1V Stat 11/27/20 22:00 COVID19 -Nasal swab/Pre-Proc Stat 11/27/20 22:19 EKG-12 Lead Stat Acetaminophen (Acetaminophen 325 Mg Tablet) 650 mg PO Q6HR PRN PRN Reason: Fever/Mild Pain (1-3) Hydrocodone Bitart/Acetaminophen (Hydrocodone/Acet 5/325 Tablet) 1 tab PO Q4HR PRN PRN Reason: Pain, Moderate (4-6) Last Admin: 11/28/20 01:25 Dose: 1 tab Documented by: MORIS Apixaban (Apixaban 5 Mg Tablet) 5 mg PO BID GREG Calcium Carbonate (Calcium Carbonate 500 Mg Tab) 1,000 mg PO Q4HR PRN PRN Reason: Dyspepsia Hydromorphone HCl (Hydromorphone 1 Mg Inj) 1 mg IV Q6H PRN PRN Reason: Pain, Severe (7-10) Levothyroxine Sodium (Levothyroxine 100 Mcg Tablet) 100 mcg PO 0600 [facility] Metoprolol Tartrate (Metoprolol Ir 25 Mg Tablet) 25 mg PO BID [facility] Naloxone HCl (Naloxone 0.4 Mg/Ml Vial) 0.2 mg IV Q2MIN PRN PRN Reason: Opiate Reversal (Dofetilide [Tikosyn (] 250 Mcg)) 250 mcg PO Q12H [facility] Ondansetron HCl (Ondansetron 4 Mg/2 Ml Inj) 4 mg IV Q8HR PRN PRN Reason: Nausea And Vomiting Discontinued Medications Lidocaine/Epinephrine (Lidocaine 2% W/Epi Inj) 20 ml INJ INTRA-OP ONE Stop: 11/27/20 20:31 Last Admin: 11/27/20 23:05 Dose: 20 ml Documented by: SYNDEE Metoprolol Tartrate (Metoprolol Tartrate 5 Mg/5 Ml Inj) 5 mg IV NOW ONE Stop: 11/27/20 19:45 Last Admin: 11/27/20 19:55 Dose: 5 mg Documented by: NITHYA Non-Formulary Medication (Dofetilide [Tikosyn]) 250 mcg PO Q12H [facility] Last Admin: 11/28/20 00:49 Dose: Not Given Documented by: MORIS Vital Signs Vital signs: Vital Signs - 8 hr 11/27/20 19:35 11/27/20 19:43 11/27/20 19:45 Temperature 97.9 F Pulse Rate 140 H 149 H 139 H Respiratory Rate 17 14 15 Blood Pressure 114/57 L Pulse Oximetry 99 98 98 11/27/20 19:48 11/27/20 19:50 11/27/20 19:57 Temperature Pulse Rate 156 H 146 H 145 H Respiratory Rate 16 12 12 Blood Pressure 141/72 H 123/79 Pulse Oximetry 99 99 99 11/27/20 19:59 11/27/20 20:00 11/27/20 20:05 Temperature Pulse Rate 146 H 145 H 121 H Respiratory Rate 21 9 L Blood Pressure 125/84 130/95 H Pulse Oximetry 99 99 99 11/27/20 20:10 11/27/20 20:14 11/27/20 20:20 Temperature Pulse Rate 106 H 107 H 106 H Respiratory Rate 22 15 21 Blood Pressure 119/90 123/77 131/93 H Pulse Oximetry 98 98 98 11/27/20 20:25 11/27/20 20:30 11/27/20 20:31 Temperature Pulse Rate 96 H 88 99 H Respiratory Rate 13 15 20 Blood Pressure 136/86 128/83 Pulse Oximetry 98 98 98 11/27/20 20:35 11/27/20 20:40 11/27/20 20:45 Temperature Pulse Rate 100 H 96 H 94 H Respiratory Rate 21 15 14 Blood Pressure 131/81 138/84 133/88 Pulse Oximetry 98 98 98 11/27/20 20:50 11/27/20 20:55 11/27/20 21:00 Temperature Pulse Rate 96 H 108 H 96 H Respiratory Rate 25 H 17 24 Blood Pressure 126/86 127/72 131/83 Pulse Oximetry 97 97 98 11/27/20 21:06 11/27/20 21:11 11/27/20 21:30 Temperature Pulse Rate 93 H 86 87 Respiratory Rate 19 12 11 L Blood Pressure 126/83 137/66 121/82 Pulse Oximetry 98 97 97 11/27/20 22:00 11/27/20 22:01 11/27/20 22:30 Temperature Pulse Rate 97 H 97 H 84 Respiratory Rate 16 12 11 L Blood Pressure 140/68 106/58 L Pulse Oximetry 97 97 97 11/27/20 23:00 Temperature Pulse Rate 81 Respiratory Rate 9 L Blood Pressure 99/63 Pulse Oximetry 97 MDM - Fall Lab Data Attestation: I reviewed the patient's lab results. Result diagrams: 11/27/20 19:20 11/27/20 19:20 Labs: Lab Results 11/27/20 11/27/20 11/27/20 Range/Units 19:20 19:20 19:20 WBC 8.2 (4.5-11.0) X10^3/uL RBC 4.68 (4.0-5.2) X10^6/uL Hgb 14.0 (12.0-16.0) g/dL Hct 42.0 (36-46) % MCV 89.7 (80-100) fL MCH 29.8 (26-34) PG MCHC 33.3 (30-36) % RDW 13.8 (11.6-14.8) % Plt Count 210 (150-400) X10^3/uL Neut % (Auto) 57.3 (50-75) % Lymph % (Auto) 33.0 (25-40) % Boyd % (Auto) 7.1 (3-14) % Eos % (Auto) 1.8 L (2-4) % Baso % (Auto) 0.8 (0-2) % Neut # (Auto) 4700 (9001-7143) /uL Lymph # (Auto) 2700 (6900-4031) /uL Boyd # (Auto) 600 (0-900) /uL Eos # (Auto) 100 (0-450) /uL Baso # (Auto) 100 (0-100) /uL PT 13.1 H (10.1-12.7) SECONDS INR 1.2 (0.9-1.3) APTT 31 (26.4-36.2) SECONDS Sodium 136 L (137-145) mmol/L Potassium 4.3 (3.4-5.1) mmol/L Chloride 102 (98-107) mmol/L Carbon Dioxide 21 L (22-32) mmol/L BUN 34 H (7-17) mg/dL Creatinine 0.62 (0.52-1.04) mg/dL Estimated GFR > 60.0 (>60) mL/min BUN/Creatinine Ratio 54.8 H (6-22) Glucose 134 H (80-110) mg/dL Calcium 10.8 H (8.4-10.2) mg/dL Magnesium (1.6-2.3) mg/dL Total Bilirubin 0.5 (0.2-1.3) mg/dL AST 36 (14-36) IU/L ALT 33 (<35) IU/L Alkaline Phosphatase 75 (38-126) U/L Total Creatine Kinase 112 (30-135) U/L CK-MB (CK-2) 2.03 (<2.37) ng/mL CK-MB (CK-2) Rel Index 1.8 (1.5-5.0) % Troponin I < 0.012 (0.01-0.034) ng/mL Total Protein 7.7 (6.3-8.2) g/dL Albumin 4.6 (3.5-5.0) g/dL Globulin 3.1 (1.7-4.1) g/dL Albumin/Globulin Ratio 1.5 (1.0-2.8) SARS-CoV-2 (PCR) (Negative) 11/27/20 11/27/20 Range/Units 19:20 22:00 WBC (4.5-11.0) X10^3/uL RBC (4.0-5.2) X10^6/uL Hgb (12.0-16.0) g/dL Hct (36-46) % MCV (80-100) fL MCH (26-34) PG MCHC (30-36) % RDW (11.6-14.8) % Plt Count (150-400) X10^3/uL Neut % (Auto) (50-75) % Lymph % (Auto) (25-40) % Boyd % (Auto) (3-14) % Eos % (Auto) (2-4) % Baso % (Auto) (0-2) % Neut # (Auto) (0334-3032) /uL Lymph # (Auto) (0205-2915) /uL Boyd # (Auto) (0-900) /uL Eos # (Auto) (0-450) /uL Baso # (Auto) (0-100) /uL PT (10.1-12.7) SECONDS INR (0.9-1.3) APTT (26.4-36.2) SECONDS Sodium (137-145) mmol/L Potassium (3.4-5.1) mmol/L Chloride (98-107) mmol/L Carbon Dioxide (22-32) mmol/L BUN (7-17) mg/dL Creatinine (0.52-1.04) mg/dL Estimated GFR (>60) mL/min BUN/Creatinine Ratio (6-22) Glucose (80-110) mg/dL Calcium (8.4-10.2) mg/dL Magnesium 2.2 (1.6-2.3) mg/dL Total Bilirubin (0.2-1.3) mg/dL AST (14-36) IU/L ALT (<35) IU/L Alkaline Phosphatase (38-126) U/L Total Creatine Kinase (30-135) U/L CK-MB (CK-2) (<2.37) ng/mL CK-MB (CK-2) Rel Index (1.5-5.0) % Troponin I (0.01-0.034) ng/mL Total Protein (6.3-8.2) g/dL Albumin (3.5-5.0) g/dL Globulin (1.7-4.1) g/dL Albumin/Globulin Ratio (1.0-2.8) SARS-CoV-2 (PCR) Negative (Negative) Imaging Data Chest x-ray: Radiologist's Impression: No acute cardiopulmonary process CT scan - head: Radiologist's Impression: No acute intracranial process. Acute hemorrhage and left frontal sinus and air locule and left orbit concerning for nondisplaced superior left orbital wall fracture. Recommend CT scan of face or-evaluation CT - cervical spine: Radiologist's Impression: Fracture involving anterior inferior C5 vertebral body. ct facial: Radiologist's Impression: Minimally displaced fracture involving left superior orbit wall associated left frontal sinus hemorrhage. Right upper 2nd molar. He had apical lucency. Focal abscess. Recommend dental consult patient Extremity x-ray #1: Radiologist's Impression: Right is wrist preliminary report-no fracture ECG Data Attestation: I personally reviewed and interpreted this ECG as follows: Interpretation: EKG 1. Sinus rhythm rate [address] changes EKG 2. Sinus rhythm rate 80 p.r. interval 1 4 QRS 148 QTC 521 right bundle-branch block noted no ST changes MDM Narrative Medical decision making narrative: Patient initially brought in with quite variable heart rate into the 170s going in and out of sinus rhythm and AFib with RVR. She previously took her Tikosyn she was given 1 dose of metoprolol which seemed to help and now remains in sinus rhythm rate in the 80's. Blood work is overall reassuring. She presents as a modified trauma ground level fall on [facility] with multiple lacerations to her head. She states that the area where she fell there are cabinets on both sides and she thinks that they were both open. She sustained numerous lacerations which have now been repaired. She is also found to have a superior orbital fracture as well there is no eye entrapment appreciated. CT also shows C5 fracture. She is placed in an [place] collar. 2299 Dr Price, spine surgeon at her review has reviewed CT. At this time fracture appears stable recommends up right x-rays for follow-up an [place] collar. 2316-Dr. [facility] updated on test results and [facility] recommendations. At this time agrees for consultation. 232-Dr. Low surgery a cam patient's symptoms test results along with Orthopedic recommendations. At this time she agrees for observation with Medicine to consult in regards to atrial fibrillation. Discharge Plan Departure Patient Disposition: Admitted as Observation Clinical Impression: C5 cervical fracture Qualifiers: Encounter type: initial encounter Fracture type: closed Fracture morphology: other fracture Closed head injury Qualifiers: Encounter type: initial encounter Qualified Code(s): S09.90XA - Unspecified injury of head, initial encounter Forehead laceration Qualifiers: Encounter type: initial encounter Qualified Code(s): S01.81XA - Laceration without foreign body of other part of head, initial encounter Atrial fibrillation Qualifiers: Atrial fibrillation type: unspecified Qualified Code(s): I48.91 - Unspecified atrial fibrillation Admit Date/Time: 11/27/20 23:19
[2020-11-27 19:51] LABS: Add Manual Diff / Slide Review NO; Basophils Absolute Auto 100 /uL (0-100); Basophils Percent Auto 0.8 % (0-2); Eosinophils Absolute Auto 100 /uL (0-450); Eosinophils Percent Auto 1.8 % (2-4); Lymphocytes Absolute Auto 2700 /uL (1100-4500); Mean Corpuscular HGB Conc 33.3 % (30-36); Mean Corpuscular Hemoglobin 29.8 PG (26-34); Mean Corpuscular Volume 89.7 fL (80-100); Monocytes Absolute Auto 600 /uL (0-900); Monocytes Percent Auto 7.1 % (3-14); Neutrophils Absolute Auto 4700 /uL (1500-7000); Neutrophils Percent Auto 57.3 % (50-75); Platelet Count 210 X10^3/uL (150-400); Red Blood Cell Count 4.68 X10^6/uL (4.0-5.2); Red Cell Distribution Width 13.8 % (11.6-14.8); White Blood Cell Count 8.2 X10^3/uL (4.5-11.0)
[2020-11-27 19:52] LABS: INR 1.2 (0.9-1.3); Prothrombin Time 13.1 SECONDS (10.1-12.7)
[2020-11-27 19:54] LABS: PTT Partial Thromboplastin Tim 31 SECONDS (26.4-36.2)
[2020-11-27] MEDS: METOPROLOL TARTRATE 5 MG/5 ML INJ IV (19:55)
[2020-11-27 19:58] LABS: Alanine Aminotransferase 33 IU/L (<35); Albumin 4.6 g/dL (3.5-5.0); Albumin Globulin Ratio 1.5 (1.0-2.8); Alkaline Phosphatase 75 U/L (38-126); Aspartate Aminotransferase 36 IU/L (14-36); BUN Creatinine Ratio 54.8 (6-22); Bilirubin Total 0.5 mg/dL (0.2-1.3); Blood Urea Nitrogen 34 mg/dL (7-17); Calcium 10.8 mg/dL (8.4-10.2); Carbon Dioxide 21 mmol/L (22-32); Chloride 102 mmol/L (98-107); Creatine Kinase 112 U/L (30-135); Estimated Glomerular Filt Rate > 60.0 mL/min (>60); Globulin 3.1 g/dL (1.7-4.1); Glucose 134 mg/dL (80-110); HEMOLYSIS 28 (0-50); Potassium 4.3 mmol/L (3.4-5.1); Sodium 136 mmol/L (137-145); Total Protein 7.7 g/dL (6.3-8.2)
[2020-11-27 19:59] LABS: Magnesium 2.2 mg/dL (1.6-2.3)
[2020-11-27 20:10] LABS: Troponin I < 0.012 ng/mL (0.01-0.034)
[2020-11-27 20:13] LABS: CKMB % Relative Index 1.8 % (1.5-5.0); Creatine Kinase MB 2.03 ng/mL (<2.37)
--- NOTE | 2020-11-27 21:15 | PC.NURSE ---
Switched pt to aspin collar, cspine precautions maintained with Dr. Sow.
[2020-11-27 22:40] LABS: COVID19 -Nasal RAPID Negative (Negative)
[2020-11-27] MEDS: LIDOCAINE 2% W/EPI INJ 20 ML INJ (23:05)
[2020-11-27] MEDS: LIDOCAINE 2% W/EPI INJ 20 ML (23:05)
--- NOTE | 2020-11-27 23:38 | DI.RAD.S_ITS ---
PROCEDURE: XR WRIST RT MIN 3V INDICATIONS: fall with wrist pain TECHNIQUE: 4 views of the wrist were acquired. COMPARISON: None. FINDINGS: Bones: No acute fractures or dislocations identified on the provided images. No suspicious bony lesions. Scaphoid view: Intact scaphoid Soft tissues: No suspicious soft tissue calcifications. Soft tissue edema is seen at the dorsum of the wrist. IMPRESSION: No acute osseous abnormality. If clinical suspicion and/or symptoms persist, additional imaging with repeat plain films, or advanced imaging (e.g. CT, MRI) may be helpful for further assessment. There is no significant discrepancy when compared to the overnight Teleradiology report. Dictated by: Navneet Saab M.D. on 11/28/2020 at 8:45 Approved by: Navneet Saab M.D. on 11/28/2020 at 8:47
[2020-11-28] VITALS (10 sets, daily range): BP systolic 93–133; BP diastolic 59–80; PULSE 74–105; RESP 16–23; TEMP 36.2–36.8; O2SAT 93–97; BMI 26.8
[2020-11-28] MEDS: HYDROCODONE/ACET 5/325 TABLET 1 TAB PO ×4 (01:25→19:09)
--- NOTE | 2020-11-28 03:08 | PC.ADMIT ---
Addendum entered by Gisselle Mckeon R.N. 11/28/20 06:33: Continues to complain of right wrist pain and noted to be bruised this morning. Medicated with Vicodin and ice applied. Original Note: Admitted to room 207 from ER per stretcher but was able to walk from stretcher to bed with assistance; does seem unsteady on feet but denied any dizziness. Is alert and oriented. Breath sounds CTA with RA sat of 96%. HRR. 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 Denied nausea. BT present and abdomen is soft. Was incontinent of urine upon arrival but has sine gotten up to [facility] to void and states she is not normally incontinent of urine; denies dysuria, frequency or urgency. Wearing a cervical collar as has a C5 fx. 3 suture lacerations to upper head and 1 above right eyebrow. Right eye orbit is bruised. Complained of right wrist pain so was medicated with Vicodin and is currently asleep. Bilateral calf SCD's applied to legs. Ice pack applied to head. Fall risk score is high and bed alarm is activated. [email or web address] [facility] Admission Note: The patient,Ruma Yates,85 y/o, was given written information regarding hospital policies, unit procedures and contact persons. Patient's smoking status: Former smoker. Vital Signs - 8 hr 11/27/20 19:35 11/27/20 19:43 11/27/20 19:45 Temperature 97.9 F Pulse Rate 140 H 149 H 139 H Respiratory Rate 17 14 15 Blood Pressure 114/57 L Pulse Oximetry 99 98 98 11/27/20 19:48 11/27/20 19:50 11/27/20 19:57 Temperature Pulse Rate 156 H 146 H 145 H Respiratory Rate 16 12 12 Blood Pressure 141/72 H 123/79 Pulse Oximetry 99 99 99 11/27/20 19:59 11/27/20 20:00 11/27/20 20:05 Temperature Pulse Rate 146 H 145 H 121 H Respiratory Rate 21 9 L Blood Pressure 125/84 130/95 H Pulse Oximetry 99 99 99 11/27/20 20:10 11/27/20 20:14 11/27/20 20:20 Temperature Pulse Rate 106 H 107 H 106 H Respiratory Rate 22 15 21 Blood Pressure 119/90 123/77 131/93 H Pulse Oximetry 98 98 98 11/27/20 20:25 11/27/20 20:30 11/27/20 20:31 Temperature Pulse Rate 96 H 88 99 H Respiratory Rate 13 15 20 Blood Pressure 136/86 128/83 Pulse Oximetry 98 98 98 11/27/20 20:35 11/27/20 20:40 11/27/20 20:45 Temperature Pulse Rate 100 H 96 H 94 H Respiratory Rate 21 15 14 Blood Pressure 131/81 138/84 133/88 Pulse Oximetry 98 98 98 11/27/20 20:50 11/27/20 20:55 11/27/20 21:00 Temperature Pulse Rate 96 H 108 H 96 H Respiratory Rate 25 H 17 24 Blood Pressure 126/86 127/72 131/83 Pulse Oximetry 97 97 98 11/27/20 21:06 11/27/20 21:11 11/27/20 21:30 Temperature Pulse Rate 93 H 86 87 Respiratory Rate 19 12 11 L Blood Pressure 126/83 137/66 121/82 Pulse Oximetry 98 97 97 11/27/20 22:00 11/27/20 22:01 11/27/20 22:30 Temperature Pulse Rate 97 H 97 H 84 Respiratory Rate 16 12 11 L Blood Pressure 140/68 106/58 L Pulse Oximetry 97 97 97 11/27/20 23:00 11/27/20 23:30 11/28/20 00:23 Temperature Pulse Rate 81 92 H 81 Respiratory Rate 9 L 24 23 Blood Pressure 99/63 Pulse Oximetry 97 96 11/28/20 00:26 11/28/20 00:35 Temperature 97.5 F L Pulse Rate 77 Respiratory Rate 20 Blood Pressure 100/59 L 133/77 Pulse Oximetry 97 96
[2020-11-28 05:29] LABS: Add Manual Diff / Slide Review NO; Basophils Absolute Auto 0 /uL (0-100); Basophils Percent Auto 0.4 % (0-2); Eosinophils Absolute Auto 0 /uL (0-450); Eosinophils Percent Auto 0.2 % (2-4); Hematocrit 38.6 % (36-46); Hemoglobin 12.9 g/dL (12.0-16.0); Lymphocytes Absolute Auto 1300 /uL (1100-4500); Lymphocytes Percent Auto 12.7 % (25-40); Mean Corpuscular HGB Conc 33.4 % (30-36); Mean Corpuscular Hemoglobin 29.9 PG (26-34); Mean Corpuscular Volume 89.4 fL (80-100); Monocytes Absolute Auto 700 /uL (0-900); Monocytes Percent Auto 7.4 % (3-14); Neutrophils Absolute Auto 8000 /uL (1500-7000); Neutrophils Percent Auto 79.3 % (50-75); Platelet Count 173 X10^3/uL (150-400); Red Blood Cell Count 4.32 X10^6/uL (4.0-5.2); Red Cell Distribution Width 13.8 % (11.6-14.8); White Blood Cell Count 10.1 X10^3/uL (4.5-11.0)
[2020-11-28 05:52] LABS: BUN Creatinine Ratio 41.8 (6-22); Blood Urea Nitrogen 23 mg/dL (7-17); Calcium 9.9 mg/dL (8.4-10.2); Carbon Dioxide 26 mmol/L (22-32); Chloride 106 mmol/L (98-107); Estimated Glomerular Filt Rate > 60.0 mL/min (>60); Glucose 118 mg/dL (80-110); HEMOLYSIS < 15 (0-50); Potassium 4.4 mmol/L (3.4-5.1); Sodium 136 mmol/L (137-145)
--- NOTE | 2020-11-28 05:54 | PM.CN ---
History of Present Illness Consult details Chief complaint: GLF Reason for consult: Atrial fibrillation Narrative: Patient is 85-year-old female Ruma Yates with a history of atrial fibrillation on [facility]. She presented to the ED via EMS with a modified trauma ground level fall on [facility]. The patient reported in the ED she took her evening medications including Tikosyn, she said the dog head rolled the carpet rug and she tripped on it. She fell hitting her head on a kitchen cabinet. She has multiple lacerations on her forehead. In ED she was unable to recall what all happened. Patient initially presented with variable heart rate into 170s going in and out of sinus rhythm and AFib with RVR. She previously took her Tikosyn she was given 1 dose of metoprolol which seemed to convert her into sinus rhythm rate in the 80's and has remained stable. Patient's blood work is predominantly unremarkable only mild alterations with sodium 136, BUN 34, HC03 21, glucose 134. Patient is admitted to the surgical service Dr. Low as a modified trauma ground level fall on [facility] with multiple lacerations to her head, which were repaired in ED, with a superior orbital fracture and C5 fracture. The hospital service has been requested to consult regarding the patient's atrial fibrillation with RVR. Patient presented to the ED in atrial fibrillation with RVR rate as high as 170's. Upon admit the patient is in normal sinus rhythm, she is laying comfortably in her bed reports mild discomfort but pain medication is setting in she is unable to recall the details of the events earlier in the day but is alert and orientated x3, patient denies chest pain, shortness of breath, headache, changes in vision, difficulty swallowing, swelling around her throat, fever, body aches, chills, abdominal pain, nausea, vomiting, numbness, tingling, weakness. Patient reports that she was in not having atrial fibrillation and had not been in atrial fib since her ablation in 2019, this of course contradicts patient's AFib with RVR in the ED earlier. Patient is unable to adequately participate in her HPI in ROS at this time due to head injury. Meds Home Medications and Allergies Home Medications Medication Instructions Recorded Confirmed Type cholecalciferol (vitamin D3) 50 2,000 unit PO DAILY #0 09/18/16 11/28/20 History mcg (2,000 unit) tablet (Vitamin D3) metoprolol tartrate 25 mg tablet 37.5 mg PO BID #0 09/18/16 11/28/20 History levothyroxine 100 mcg tablet 100 mcg PO QAM #90 tab 09/03/18 11/28/20 Rx apixaban 5 mg tablet (Eliquis) 5 mg PO BID 01/10/19 11/27/20 History fluticasone propionate 110 1 puff INHALATION BID 01/10/19 11/28/20 History mcg/actuation HFA aerosol inhaler (Flovent HFA) dofetilide 250 mcg capsule 250 mcg PO Q12H 02/23/19 11/28/20 History (Tikosyn) magnesium oxide 400 mg PO DAILY 02/23/19 11/28/20 History levalbuterol tartrate 45 1 - 2 puff INHALATION Q8HR PRN 11/27/20 11/27/20 History mcg/actuation aerosol inhaler Allergies Allergy/AdvReac Type Severity Reaction Status Date / Time mold [MOLD] Allergy Intermediate LETHARGY Verified 05/11/19 08:41 AND STUFFY HEAD horseradish Allergy Mild Itching Verified 05/11/19 08:41 polyethylene glycol AdvReac Severe Swelling Verified 05/11/19 08:41 and itching in face naproxen [From Aleve] AdvReac Mild rash on Verified 05/11/19 08:41 face Aetseiz-Oas-Qqs Reductase AdvReac Mild Nausea Verified 05/11/19 08:41 Inhibitor POLLEN Allergy Intermediate RUNNY Uncoded 02/23/19 09:50 NOSE, ITCHY WATERY EYES, LACK OF ENERGY DUST Allergy Mild HAY FEVER Uncoded 02/23/19 09:50 Review of Systems Review of Systems Narrative: All 12 point systems reviewed with the patient and are negative except otherwise documented. It should be noted that if patient's input regarding HPI an ROS is likely inaccurate due to head injury. Exam Vital Signs (past 8 hours): - 11/27/20 22:00 11/27/20 22:01 11/27/20 22:30 Temperature Pulse Rate 97 H 97 H 84 Respiratory Rate 16 12 11 L Blood Pressure 140/68 106/58 L Pulse Oximetry 97 97 97 11/27/20 23:00 11/27/20 23:30 11/28/20 00:23 Temperature Pulse Rate 81 92 H 81 Respiratory Rate 9 L 24 23 Blood Pressure 99/63 Pulse Oximetry 97 96 11/28/20 00:26 11/28/20 00:35 11/28/20 04:20 Temperature 97.5 F L 98.2 F Pulse Rate 77 85 Respiratory Rate 20 18 Blood Pressure 100/59 L 133/77 107/80 Pulse Oximetry 97 96 96 Oxygen Delivery Method Room Air Oxygen Flow Rate 0 Narrative Exam Narrative: Patient is a delightful alert and orientated 85-year-old female in no distress at this time HEENT: Head crepitations or depressions multiple lacerations x4 sutures in place, no active bleeding at this time. EYES: EOMI, NIKOLAI, left periorbital contusion with left superior laceration through eyebrow, horizontal eye movement intact, visual field of left eye absent due to lid swelling, patient denies pressure behind eye or pain with eye movement. NECK: In C-collar CARDIOVASCULAR: Regular rhythm, sinus RESPIRATORY: Breath sounds equal bilaterally, no wheezes rales or rhonchi. No crepitations, no subcutaneous air, chest is nontender, no signs of trauma ABDOMEN: Soft, nontender. Normoactive bowel sounds all 4 quadrants. No guarding or rebound. PELVIS: stable. EXTREMITIES: Normal range of motion, no clubbing or edema. Right upper extremity: Mild right wrist pain and distal radial pulse intact no obvious bony deformity or swelling. Left upper extremity: Within normal limits Right lower extremity: Within normal limits Left lower extremity:Within normal limits NEUROLOGICAL: No noted gross cranial nerve deficit. Normal speech. Patient is alert and orientated x3, appropriate affect, thought context and judgment for age. Objective Labs Result Diagrams: 11/28/20 05:15 11/27/20 19:20 Labs: Laboratory Results - last 24 hr 11/27/20 11/27/20 11/27/20 19:20 19:20 19:20 WBC 8.2 RBC 4.68 Hgb 14.0 Hct 42.0 MCV 89.7 MCH 29.8 MCHC 33.3 RDW 13.8 Plt Count 210 Neut % (Auto) 57.3 Lymph % (Auto) 33.0 [place] % (Auto) 7.1 Eos % (Auto) 1.8 L Baso % (Auto) 0.8 Neut # (Auto) 4700 Lymph # (Auto) 2700 [place] # (Auto) 600 Eos # (Auto) 100 Baso # (Auto) 100 PT 13.1 H INR 1.2 APTT 31 Sodium 136 L Potassium 4.3 Chloride 102 Carbon Dioxide 21 L BUN 34 H Creatinine 0.62 Estimated GFR > 60.0 BUN/Creatinine Ratio 54.8 H Glucose 134 H Calcium 10.8 H Magnesium Total Bilirubin 0.5 AST 36 ALT 33 Alkaline Phosphatase 75 Total Creatine Kinase 112 CK-MB (CK-2) 2.03 CK-MB (CK-2) Rel Index 1.8 Troponin I < 0.012 Total Protein 7.7 Albumin 4.6 Globulin 3.1 Albumin/Globulin Ratio 1.5 SARS-CoV-2 (PCR) 11/27/20 11/27/20 11/28/20 19:20 22:00 05:15 WBC 10.1 RBC 4.32 Hgb 12.9 Hct 38.6 MCV 89.4 MCH 29.9 MCHC 33.4 RDW 13.8 Plt Count 173 Neut % (Auto) 79.3 H D Lymph % (Auto) 12.7 L D [place] % (Auto) 7.4 Eos % (Auto) 0.2 L Baso % (Auto) 0.4 Neut # (Auto) 8000 H Lymph # (Auto) 1300 [place] # (Auto) 700 Eos # (Auto) 0 Baso # (Auto) 0 PT INR APTT Sodium Potassium Chloride Carbon Dioxide BUN Creatinine Estimated GFR BUN/Creatinine Ratio Glucose Calcium Magnesium 2.2 Total Bilirubin AST ALT Alkaline Phosphatase Total Creatine Kinase CK-MB (CK-2) CK-MB (CK-2) Rel Index Troponin I Total Protein Albumin Globulin Albumin/Globulin Ratio SARS-CoV-2 (PCR) Negative Assessment & Plan Assessment & Plan narrative: Ruma Yates is 85-year-old female admitted to the surgery Service Dr. Low for a modified trauma ground level fall on with multiple lacerations to head, superior orbital fracture, C5 fracture, and atrial fibrillation with RVR. Hospital service will consult regarding management of atrial fibrillation. 1. Modified trauma mechanical ground level fall with head injury, on , resulting in multiple head lacerations x4, superior orbital fracture, and C5 fracture, acute, present on admission -Managed by Dr. Low -neuro checks q.4 hours while awake ED Consults: -2299 Dr Price, spine surgeon at her review has reviewed CT. At this time fracture appears stable recommends up right x-rays for follow-up an [place] collar. -2315-Dr. [facility] updated on test results and [facility] recommendations. At this time agrees for consultation. -2319-Dr. Low surgery a cam patient's symptoms test results along with Orthopedic recommendations. At this time she agrees for observation with Medicine to consult in regards to atrial fibrillation. -CT facial:Minimally displaced fracture involving left superior orbit wall associated left frontal sinus hemorrhage. Right upper 2nd molar. He had apical lucency. Focal abscess. -Recommend dental consult patient -Stopped patient's apixaban until further assessment of possible head bleed could be assessed-restart to be determined by Dr. Low. -Recommend MRI 2. Atrial fibrillation with RVR, acute on chronic, present on admission - EKG 1. Sinus rhythm rate [address] changes EKG 2. Sinus rhythm rate 80 p.r. interval 1 4 QRS 148 QTC 521 right bundle-branch block noted no ST changes -due to potential for a head bleed, will hold her apixaban until Dr. Low assess for head bleed. -Continue home dose of metoprolol 37.5 mg p.o. b.i.d. -Continue home dose of dofetilide 250 mg p.o. b.i.d. 3. 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 I confirmed that the patient's advanced care plan is present, Code status is documented and/or surrogate decision maker is listed in the patient's medical record.
[2020-11-28 06:00] LABS: NT-proBNP (BNP-Adult 18+) 620 pg/mL (<450)
[2020-11-28] MEDS: LEVOTHYROXINE 100 MCG TABLET PO (06:02)
[2020-11-28 07:53] LABS: TSH w/ Reflex to FT4 0.49 uIU/mL (0.47-4.68)
[2020-11-28] MEDS: METOPROLOL IR 25 MG TABLET 37.5 MG PO ×2 (08:04→20:14)
--- NOTE | 2020-11-28 08:51 | PM.CN ---
History of Present Illness Consult details Date Patient Seen: 11/28/20 Time Patient Seen: 08:51 Chief complaint: Head and neck pain Reason for consult: Ground level fall, C5 vertebral body fracture, right wrist injury Requesting provider: Anisha Sow Narrative: 85-year-old female who lives alone tripped on a rug yesterday striking her head. Patient brought into the ER by EMS. She reports mild neck pain. She also reports some mild numbness along the finger tips right hand. Denies tingling in her upper extremities. No numbness in the left hand. She has some mild pain at right wrist along the radial side. Denies prior history of right wrist injury. She denies headache. No nausea/ vomiting. Meds Home Medications and Allergies Home Medications Medication Instructions Recorded Confirmed Type cholecalciferol (vitamin D3) 50 2,000 unit PO DAILY #0 09/18/16 11/28/20 History mcg (2,000 unit) tablet (Vitamin D3) metoprolol tartrate 25 mg tablet 37.5 mg PO BID #0 09/18/16 11/28/20 History levothyroxine 100 mcg tablet 100 mcg PO QAM #90 tab 09/03/18 11/28/20 Rx apixaban 5 mg tablet (Eliquis) 5 mg PO BID 01/10/19 11/27/20 History fluticasone propionate 110 1 puff INHALATION BID 01/10/19 11/28/20 History mcg/actuation HFA aerosol inhaler (Flovent HFA) dofetilide 250 mcg capsule 250 mcg PO Q12H 02/23/19 11/28/20 History (Tikosyn) magnesium oxide 400 mg PO DAILY 02/23/19 11/28/20 History levalbuterol tartrate 45 1 - 2 puff INHALATION Q8HR PRN 11/27/20 11/27/20 History mcg/actuation aerosol inhaler Allergies Allergy/AdvReac Type Severity Reaction Status Date / Time mold [MOLD] Allergy Intermediate LETHARGY Verified 05/11/19 08:41 AND STUFFY HEAD horseradish Allergy Mild Itching Verified 05/11/19 08:41 polyethylene glycol AdvReac Severe Swelling Verified 05/11/19 08:41 and itching in face naproxen [From Aleve] AdvReac Mild rash on Verified 05/11/19 08:41 face Neyfxki-Xuh-Lia Reductase AdvReac Mild Nausea Verified 05/11/19 08:41 Inhibitor POLLEN Allergy Intermediate RUNNY Uncoded 02/23/19 09:50 NOSE, ITCHY WATERY EYES, LACK OF ENERGY DUST Allergy Mild HAY FEVER Uncoded 02/23/19 09:50 Review of Systems Constitutional Constitutional: Reports system reviewed and no additional complaints, except as documented Exam Vital Signs (past 8 hours): - 11/28/20 04:20 11/28/20 07:29 11/28/20 07:51 Temperature 98.2 F 98.2 F Pulse Rate 85 105 H 105 H Respiratory Rate 18 18 18 Blood Pressure 107/80 132/76 132/76 Pulse Oximetry 96 96 96 Oxygen Delivery Method Room Air Oxygen Flow Rate 0 Narrative Exam Narrative: Pleasant 85-year-old female resting comfortably in bed in no apparent distress. Hard collar in place. Multiple lacerations on her head and contusion to the left eye. No midline cervical or thoracic tenderness. No paraspinal muscle tenderness along the cervical or thoracic spine. 5/5 strength with elbow flexion and extension, wrist flexion and extension, finger flexion compared bilaterally. Sensation grossly intact to light touch bilateral upper extremities. She has good capillary refill. Right wrist she is mildly tender along the radial styloid otherwise wrist and hand is nontender palpation. Slightly diminished range of motion wrist flexion extension secondary to right wrist pain. No pain in the anatomical snuffbox. Objective Imaging Wrist x-ray: My impression: Right wrist x-rays, Shows no acute bony abnormality. First [facility] joint degenerative changes Radiologist's impression: Preliminary reading per ER note shows no acute fractures Cervical spine CT: Radiologist's impression: Preliminary reading per ER note shows fracture involving the anterior inferior C5 vertebral body Labs Result Diagrams: 11/28/20 05:15 11/28/20 05:15 Labs: Laboratory Results - last 24 hr 11/27/20 11/27/20 11/27/20 19:20 19:20 19:20 WBC 8.2 RBC 4.68 Hgb 14.0 Hct 42.0 MCV 89.7 MCH 29.8 MCHC 33.3 RDW 13.8 Plt Count 210 Neut % (Auto) 57.3 Lymph % (Auto) 33.0 [place] % (Auto) 7.1 Eos % (Auto) 1.8 L Baso % (Auto) 0.8 Neut # (Auto) 4700 Lymph # (Auto) 2700 [place] # (Auto) 600 Eos # (Auto) 100 Baso # (Auto) 100 PT 13.1 H INR 1.2 APTT 31 Sodium 136 L Potassium 4.3 Chloride 102 Carbon Dioxide 21 L BUN 34 H Creatinine 0.62 Estimated GFR > 60.0 BUN/Creatinine Ratio 54.8 H Glucose 134 H Calcium 10.8 H Magnesium Total Bilirubin 0.5 AST 36 ALT 33 Alkaline Phosphatase 75 Total Creatine Kinase 112 CK-MB (CK-2) 2.03 CK-MB (CK-2) Rel Index 1.8 Troponin I < 0.012 NT-Pro-B Natriuret Pep Total Protein 7.7 Albumin 4.6 Globulin 3.1 Albumin/Globulin Ratio 1.5 TSH SARS-CoV-2 (PCR) 11/27/20 11/27/20 11/28/20 19:20 22:00 05:15 WBC 10.1 RBC 4.32 Hgb 12.9 Hct 38.6 MCV 89.4 MCH 29.9 MCHC 33.4 RDW 13.8 Plt Count 173 Neut % (Auto) 79.3 H D Lymph % (Auto) 12.7 L D [place] % (Auto) 7.4 Eos % (Auto) 0.2 L Baso % (Auto) 0.4 Neut # (Auto) 8000 H Lymph # (Auto) 1300 [place] # (Auto) 700 Eos # (Auto) 0 Baso # (Auto) 0 PT INR APTT Sodium Potassium Chloride Carbon Dioxide BUN Creatinine Estimated GFR BUN/Creatinine Ratio Glucose Calcium Magnesium 2.2 Total Bilirubin AST ALT Alkaline Phosphatase Total Creatine Kinase CK-MB (CK-2) CK-MB (CK-2) Rel Index Troponin I NT-Pro-B Natriuret Pep Total Protein Albumin Globulin Albumin/Globulin Ratio TSH SARS-CoV-2 (PCR) Negative 11/28/20 11/28/20 05:15 05:15 WBC RBC Hgb Hct MCV MCH MCHC RDW Plt Count Neut % (Auto) Lymph % (Auto) [place] % (Auto) Eos % (Auto) Baso % (Auto) Neut # (Auto) Lymph # (Auto) [place] # (Auto) Eos # (Auto) Baso # (Auto) PT INR APTT Sodium 136 L Potassium 4.4 Chloride 106 Carbon Dioxide 26 BUN 23 H Creatinine 0.55 Estimated GFR > 60.0 BUN/Creatinine Ratio 41.8 H Glucose 118 H Calcium 9.9 Magnesium Total Bilirubin AST ALT Alkaline Phosphatase Total Creatine Kinase CK-MB (CK-2) CK-MB (CK-2) Rel Index Troponin I NT-Pro-B Natriuret Pep 620 H Total Protein Albumin Globulin Albumin/Globulin Ratio TSH 0.49 SARS-CoV-2 (PCR) CT of the cervical spine preliminary report shows anterior inferior C5 vertebral body fracture X-ray of the right wrist preliminary report shows no fracture Assessment & Plan Assessment & Plan narrative: 1. Anterior inferior C5 vertebral body fracture Motor cervical spine x-rays today Continue [place] collar, pending x-ray results may move her into a soft collar. 2. Right wrist sprain/strain Patient offered wrist splint and refused at this time. Follow-up with [facility] in 2 weeks. Disposition: TBD Dr. Low consulting due to modified trauma Internal medicine following for history of a- fib. acute on chronic, present on admission Time Spent With Patient Time with patient: 25 - 35 minutes
--- NOTE | 2020-11-28 08:59 | CM.DANOTE ---
Addendum entered by Guerda Villarreal R.N. 11/28/20 15:39: Ordered a cane per P.T. request. Called Alexa at [place] [facility] to ensure that they received the referral. She will review. Addendum entered by Guerda Villarreal R.N. 11/28/20 14:29: Met with patient again. Jam Chavis.Ana just started working with patient. Mentioned home health services. Patient indicated, I have a POA that can probably help me with services. Let her know that discharge planning can assist with this process. Brought in a Medicare Choice List showing agencies. Patient is not familar with these agencies, and has no preferences, but will consent to home health, but does not want a bath aide. Called [facility], and they are both booked until next week. According to updated email, [facility] can see patients between 24-48 hours in [facility]. Went ahead and faxed over the referral to [facility], included face sheet, face to face, which Dr. Keene signed, for he will consult, orders, and H&P. P.T. notes are not yet available. Let [facility] know that patient most likely will discharge tomorrow. Included nursing, P.T, O.T. Patient has declined a bath aide. Original Note: DCP: Case received, EMR reviewed and met with patient. Introduced self and role. Was able to obtain information from patient regarding her baseline activity status prior to hospitalization, as well as her current living situation. DCP assessment was completed with information currently available. Patient is an 85 year old female who admitted yesterday evening to the care of the hospitalist team. PCP: Genia Aldana PAC. Payer: confirmed: Medicare/[facility]. Patient came to the hospital via ambulance secondary to a ground level fall that occurred yesterday. According to notes, and patient, she had tripped over her dog's rug. She had sustained head and facial trauma since she hit her head on the open cabinets. She was diagnosed with left orbital fracture, as well as sinus hemorrhage. She was also noted to have a-fib with RVR. Met with patient in her room. She was sitting up in bed, has a cervical collar, bruising to left eye, which is closed, and sutures to her scalp. She is pleasant, alert and oriented. Confirmed that she does reside alone here in [place], and is independent at her baseline. She has a son named Taran, that lives in [place], and has a DPOA listed as well. Patient does not want this case liner contacting them, she will be in contact with them for any services needed. Discussed discharge planning with her, since patient may need assistance at home, limited vision to left eye. Patient indicated, I really want to go home, will not go to a rehab, I have animals at home to take care of. She is open to home health. She does not currently have P.T. orders as of yet, she may be seeing ortho today. P: DCP to follow closely regarding plan, and will see if she will be working with the therapy team for a home health. As of now, Home Health may be the best plan at this time. Will revisit with patient getting in touch with any family members as well. Guerda Villarreal RN/Regulatory Agency Director
--- NOTE | 2020-11-28 09:20 | DI.RAD.S_ITS ---
PROCEDURE: XR CERVICAL SPINE 2V OR 3V INDICATIONS: C5 vertebral body fracture TECHNIQUE: 3 view(s) of the cervical spine were acquired. COMPARISON: [facility], CT, CT CERVICAL SPINE WO [facility], 11/27/2020, 19:52. FINDINGS: Bones: No definite fractures or dislocations to the T1 level. The lateral masses of C1 appear intact on the odontoid view. No suspicious bony lesions. Soft tissues: No prevertebral soft tissue swelling. IMPRESSION: The prior CT scanning from 11/27/20 has documented a C5 compression fracture, with minimal height reduction. By plain film imaging this cannot be identified as a discrete abnormality. MR scanning could be utilized for more accurate assessment if clinically warranted. Dictated by: Kemal Hester M.D. on 11/28/2020 at 11:08 Approved by: Kemal Hester M.D. on 11/28/2020 at 11:09
--- NOTE | 2020-11-28 09:49 | PM.HP.1 ---
History of Present Illness History of Present Illness Date Patient Seen: 11/28/20 Date of Onset of Symptoms: 11/27/20 Chief complaint: Head and neck pain Narrative: Patient was at home when she tripped on a rug in the kitchen, had brief LOC. Complained of head, neck and right wrist pain. Lives alone with a cat and dog (neighbor is checking on them). No events overnight. She denies grogginess, or confusion. She had a concussion in the past and doesn't fee that is the case now. Wrist hurts but no fracture on films per ortho. No neurologic symptoms. NO fevers, chills or cough. On chronic anticoagulation due to aFib. Patient History Medical History (Updated 11/28/20 @ 10:08 by Lauren Low MD) Age-related osteoporosis without current pathological fracture (07/07/17) Asthma (Unknown) Atrial fibrillation (~2004) Atrial flutter (Unknown) Cardiac arrhythmia (Unknown) Cataracts, bilateral (Unknown) Chickenpox (194) Colon polyps (Unknown) Essential hypertension Hemorrhoids (Unknown) History of cardioversion (2008) History of GI bleed (Unknown) Hx of multiple pulmonary nodules (Unknown) Hyperlipemia (Unknown) Hyperlipidemia Hypertension (Unknown) Hypothyroidism Hypothyroidism (Unknown) Measles (~194) Multinodular thyroid (Unknown) Mumps (~194) Osteopenia (Unknown) Osteoporosis (~2014) Urinary incontinence (Unknown) Vertigo (~2012) Surgical History Fibroids (1977) History of cardiac radiofrequency ablation Family & Social History Family History Father Atrial fibrillation Mother Old age Brother No problems noted. Social History: household members none Prior Living Arrangements House Safety & Behavioral: Feels Safe in Current Yes Environment Been Physically Hurt or No Threatened By a Person Suicidal Ideation Description None Tobacco & Substance use: Tobacco type cigarettes Smoking Status Former smoker alcohol intake former Substance Use Type does not use Meds Home Medications and Allergies Home Medications Medication Instructions Recorded Confirmed Type cholecalciferol (vitamin D3) 50 2,000 unit PO DAILY #0 09/18/16 11/28/20 History mcg (2,000 unit) tablet (Vitamin D3) metoprolol tartrate 25 mg tablet 37.5 mg PO BID #0 09/18/16 11/28/20 History levothyroxine 100 mcg tablet 100 mcg PO QAM #90 tab 09/03/18 11/28/20 Rx apixaban 5 mg tablet (Eliquis) 5 mg PO BID 01/10/19 11/27/20 History fluticasone propionate 110 1 puff INHALATION BID 01/10/19 11/28/20 History mcg/actuation HFA aerosol inhaler (Flovent HFA) dofetilide 250 mcg capsule 250 mcg PO Q12H 02/23/19 11/28/20 History (Tikosyn) magnesium oxide 400 mg PO DAILY 02/23/19 11/28/20 History levalbuterol tartrate 45 1 - 2 puff INHALATION Q8HR PRN 11/27/20 11/27/20 History mcg/actuation aerosol inhaler Allergies Allergy/AdvReac Type Severity Reaction Status Date / Time mold [MOLD] Allergy Intermediate LETHARGY Verified 05/11/19 08:41 AND STUFFY HEAD horseradish Allergy Mild Itching Verified 05/11/19 08:41 polyethylene glycol AdvReac Severe Swelling Verified 05/11/19 08:41 and itching in face naproxen [From Aleve] AdvReac Mild rash on Verified 05/11/19 08:41 face [id number]-Toy-Dtl Reductase AdvReac Mild Nausea Verified 05/11/19 08:41 Inhibitor POLLEN Allergy Intermediate RUNNY Uncoded 02/23/19 09:50 NOSE, ITCHY WATERY EYES, LACK OF ENERGY DUST Allergy Mild HAY FEVER Uncoded 02/23/19 09:50 Review of Systems Review of Systems ROS: Yes All systems reviewed with the patient and are negative except as otherwise documented Exam Vital Signs (past 8 hours): - 11/28/20 04:20 11/28/20 07:29 11/28/20 07:51 Temperature 98.2 F 98.2 F Pulse Rate 85 105 H 105 H Respiratory Rate 18 18 18 Blood Pressure 107/80 132/76 132/76 Pulse Oximetry 96 96 96 Oxygen Delivery Method Room Air Oxygen Flow Rate 0 Const General: cooperative, comfortable and well groomed Nutritional Appearance: average body habitus Orientation: alert and oriented x3 HENMT Head: atraumatic Ears: hearing grossly normal bilaterally Nose: external nose normal Mouth: oral mucosae normal Teeth and gingiva: dentition normal Other: left black eye with edema, laceration above left eye, 3 other repaired lacerations on right frontal scalp. Eyes Sclera: sclerae normal Other: bruising and edema left eye, minimal volunteer opening c/w edema Neck Neck: normal visual inspection Chest Chest: normal inspection of the chest Resp Effort & Inspection: normal respiratory effort and able to speak in complete sentences Cardio Rate: regular rate Rhythm: abnormal rhythm GI Inspection: normal to inspection Palpation: soft Back/Spine/Pelvis Cervical Spine: collar present and cervical muscular tenderness Skin General: no rashes or lesions noted Trauma: laceration (discussed above) Hair: general thinning Neuro General: patient alert, patient oriented x3 and no focal motor deficits Cranial Nerves: CN's II-XI intact bilaterally Cognition: normal cognition Speech: speech normal Sensory Exam: no sensory deficits noted Extrem Right lower extremity: edema (right wrist edema and bruising) Psych Appearance: grossly normal Mood: congruent mood Affect: normal affect Judgment: judgment good Objective Labs Result Diagrams: 11/28/20 05:15 11/28/20 05:15 Labs: Laboratory Results - last 24 hr 11/27/20 11/27/20 11/27/20 19:20 19:20 19:20 WBC 8.2 RBC 4.68 Hgb 14.0 Hct 42.0 MCV 89.7 MCH 29.8 MCHC 33.3 RDW 13.8 Plt Count 210 Neut % (Auto) 57.3 Lymph % (Auto) 33.0 [place] % (Auto) 7.1 Eos % (Auto) 1.8 L Baso % (Auto) 0.8 Neut # (Auto) 4700 Lymph # (Auto) 2700 [place] # (Auto) 600 Eos # (Auto) 100 Baso # (Auto) 100 PT 13.1 H INR 1.2 APTT 31 Sodium 136 L Potassium 4.3 Chloride 102 Carbon Dioxide 21 L BUN 34 H Creatinine 0.62 Estimated GFR > 60.0 BUN/Creatinine Ratio 54.8 H Glucose 134 H Calcium 10.8 H Magnesium Total Bilirubin 0.5 AST 36 ALT 33 Alkaline Phosphatase 75 Total Creatine Kinase 112 CK-MB (CK-2) 2.03 CK-MB (CK-2) Rel Index 1.8 Troponin I < 0.012 NT-Pro-B Natriuret Pep Total Protein 7.7 Albumin 4.6 Globulin 3.1 Albumin/Globulin Ratio 1.5 TSH SARS-CoV-2 (PCR) 11/27/20 11/27/20 11/28/20 19:20 22:00 05:15 WBC 10.1 RBC 4.32 Hgb 12.9 Hct 38.6 MCV 89.4 MCH 29.9 MCHC 33.4 RDW 13.8 Plt Count 173 Neut % (Auto) 79.3 H D Lymph % (Auto) 12.7 L D [place] % (Auto) 7.4 Eos % (Auto) 0.2 L Baso % (Auto) 0.4 Neut # (Auto) 8000 H Lymph # (Auto) 1300 [place] # (Auto) 700 Eos # (Auto) 0 Baso # (Auto) 0 PT INR APTT Sodium Potassium Chloride Carbon Dioxide BUN Creatinine Estimated GFR BUN/Creatinine Ratio Glucose Calcium Magnesium 2.2 Total Bilirubin AST ALT Alkaline Phosphatase Total Creatine Kinase CK-MB (CK-2) CK-MB (CK-2) Rel Index Troponin I NT-Pro-B Natriuret Pep Total Protein Albumin Globulin Albumin/Globulin Ratio TSH SARS-CoV-2 (PCR) Negative 11/28/20 11/28/20 05:15 05:15 WBC RBC Hgb Hct MCV MCH MCHC RDW Plt Count Neut % (Auto) Lymph % (Auto) [place] % (Auto) Eos % (Auto) Baso % (Auto) Neut # (Auto) Lymph # (Auto) [place] # (Auto) Eos # (Auto) Baso # (Auto) PT INR APTT Sodium 136 L Potassium 4.4 Chloride 106 Carbon Dioxide 26 BUN 23 H Creatinine 0.55 Estimated GFR > 60.0 BUN/Creatinine Ratio 41.8 H Glucose 118 H Calcium 9.9 Magnesium Total Bilirubin AST ALT Alkaline Phosphatase Total Creatine Kinase CK-MB (CK-2) CK-MB (CK-2) Rel Index Troponin I NT-Pro-B Natriuret Pep 620 H Total Protein Albumin Globulin Albumin/Globulin Ratio TSH 0.49 SARS-CoV-2 (PCR) Assessment & Plan Assessment and plan (1) Fall from ground level: Status: Acute (2) Contusion of right wrist: Status: Acute (3) Left orbit fracture: Status: Acute (4) Chronic anticoagulation: Status: Acute (5) Fracture of tooth (traumatic), initial encounter for closed fracture: Status: Acute (6) C5 cervical fracture: Qualifiers: Encounter type: initial encounter Fracture morphology: other fracture Fracture type: closed Status: Acute (7) Closed head injury: Qualifiers: Encounter type: initial encounter Qualified Code(s): S09.90XA - Unspecified injury of head, initial encounter Status: Acute (8) Forehead laceration: Qualifiers: Encounter type: initial encounter Qualified Code(s): S01.81XA - Laceration without foreign body of other part of head, initial encounter Status: Acute (9) Atrial fibrillation: Qualifiers: Atrial fibrillation type: unspecified Qualified Code(s): I48.91 - Unspecified atrial fibrillation Status: Acute (10) Scalp laceration: Status: Acute Assessment & Plan narrative: Observation PT/OT consult Ortho consult for neck and right wrist Continue Eliquist orbital fracture is non operative Potential discharge with someone at home vs VNS today or tomorrow. Follow up surgery clinic next week for suture removal. COVID-19 COVID-19 status: Negative Time Spent With Patient Time with patient: 25 - 35 minutes
[2020-11-28] MEDS: MAGNESIUM OXIDE 400 MG TABLET PO (10:42)
--- NOTE | 2020-11-28 11:40 | PT.IIE ---
Current Diagnoses Chronic atrial fibrillation, unspecified (11/27/20) Unspecified atrial fibrillation (11/27/20) Laceration without foreign body of scalp, initial encounter (11/27/20) Laceration without foreign body of other part of head, initial encounter (11/27/20) Fracture of tooth (traumatic), initial encounter for closed fracture (11/27/20) Fracture of orbit, unspecified, initial encounter for closed fracture (11/27/20) Concussion with loss of consciousness of unspecified duration, initial encounter (11/27/20) Unspecified injury of head, initial encounter (11/27/20) Unspecified displaced fracture of fifth cervical vertebra, initial encounter for closed fracture (11/27/20) Contusion of right wrist, initial encounter (11/27/20) Fall on same level, unspecified, initial encounter (11/27/20) long term care phlebotomist (current) use of anticoagulants (11/27/20) Other fpc (current) drug therapy (11/27/20) Surgical History (Last Reviewed 11/28/20 @ 09:54 by Lauren Low MD) Fibroids (1977) Medical History (Last Reviewed 11/28/20 @ 09:54 by Lauren Low MD) Age-related osteoporosis without current pathological fracture (07/07/17) Asthma (Unknown) Atrial fibrillation (~2004) Atrial flutter (Unknown) Cardiac arrhythmia (Unknown) Cataracts, bilateral (Unknown) Chickenpox (194) Colon polyps (Unknown) Essential hypertension Hemorrhoids (Unknown) History of cardioversion (2008) History of GI bleed (Unknown) Hx of multiple pulmonary nodules (Unknown) Hyperlipemia (Unknown) Hyperlipidemia Hypertension (Unknown) Hypothyroidism Hypothyroidism (Unknown) Measles (~1942) Multinodular thyroid (Unknown) Mumps (~1942) Osteopenia (Unknown) Osteoporosis (~2014) Urinary incontinence (Unknown) Vertigo (~2012) Physical Therapy Inpatient Evaluation/Re-Eval M1 PT/OT-IP Prior Functional Status Start: 11/28/20 14:20 Freq: NEEDED Status: Active Protocol: Document 11/28/20 11:40 AB (Rec: 11/28/20 14:44 AB [id number]) Medical Review Prior Functional Status Medical History Reviewed Yes Communication able to make needs known Mobility and Gait pt stated that she is independent with all mobilities and ambulation without AD Social History Household Members none Living Arrangements House Number of Floors (Floors) Two Floors Number of Stairs To Enter/Railing? has no steps to enter and can stay on main level of the house 12 steps B rail for upstairs walk in shower Home Environment High Toilet,Walk in Shower,Tub /Shower,Built-In Shower Seat M2 PT-IP Current Condition Start: 11/28/20 14:20 Freq: NEEDED Status: Active Protocol: Document 11/28/20 11:40 AB (Rec: 11/28/20 14:44 AB [id number]) Physical Therapy Current Condition Current Condition Evaluation Date 11/28/20 Treatment Diagnosis GLF s/p C5 fx; difficulty in walking Onset Date 11/27/20 Precautions Cervical Spine Precautions Rigid Collar,No Heavy Lifting, Log Roll Other Precautions falls M3 PT-IP Subjective Start: 11/28/20 14:20 Freq: NEEDED Status: Active Protocol: Document 11/28/20 11:40 AB (Rec: 11/28/20 14:44 AB [email or web address]) Subjective Physical Therapy Visit Type Type Initial Evaluation Visit Start Time 11:40 Visit Stop Time 12:15 Total Visit Minutes 35 Number of SUPERINTENDENT CEMETERY Visits 0 Physical Therapy Visit Comments Patient Comments pt is agreeable to do PT Therapy Pain Assessment Pain When Pain Assessed During Mobility Pain Present Pain Present Pain Reported Location Generalized Scale Used pain scale not stated right wrist Scale Used pain scale not stated Pain Management Techniques Distraction,Modification of Treatment,Re-positioning, Timing of Activity with Medications M4 PT-IP Mobility and Gait Start: 11/28/20 14:20 Freq: NEEDED Status: Active Protocol: Document 11/28/20 11:40 AB (Rec: 11/28/20 14:44 AB [email or web address]) PT-Bed Mobility Assessment Supine to Sit Supine to Sit Standby Assistance,1 Person Assistance,Head of Bed Elevated PT-Transfer Assessment Sit to and From Stand Sit to and from Stand Contact Guard Assistance, Minimal Assistance,1 Person Assistance,Use of Upper Extremities Equipment Transfer Assistive Device None,Gait Belt Orthotic/Prosthetic Devices or Brace: Yes Transfers Transfer Destination Toilet Transfer Technique ambulated Transfer Ability Level of Assist Contact Guard Assistance, Minimal Assistance,1 Person Assistance,Use of Upper Extremities Comments Mobility Comments pt supine in bed. c/o R wrist pain and generalized body soreness. pt with aspen collar on. informed pt regarding wrist support and agreed to try. informed nurse and order requested from PA. pt requested to use the toilet and just sat up SBA with HOB elevated. ambulated without AD CGA to min A to the toilet without AD. completed sit to stand from the toilet CGA and ambulated towards the sink without AD. (+) LOB to the R requiring min A and cues . pt required CGA to maintain standing balance while completing handwashing. pt ambulated to the chair CGA to min A. presents with unsteady gait, forward head/shoulder position. talked to pt regarding safety and use of AD . agreed to try SPC but refused FWW. came in to talk to pt and informed pt that she has to wear the [place] Collar for a while due to cervical fx and has to be on 27/10 and if she has it off for shower/hygiene care, she has to be sure that she is not moving her neck and has somebody to assist her. pt understood. pt ambulated in room again without AD ~ 30 ft CGA to min A with another LOB with pt needing to lean against the wall for support. educated pt on safety. pt educated on SPC use. ambulated using SPC CGA 20 ft CGA to min A and cues for safety. pt agreed to sit on chair. positioned on chair. call light and table placed within reach. pt agreed to use SPC for home use for safety. agreed for PT to dispense SPC upon d/c. informed child support case officer. pt stated that she has to arrange for sombody to assist her but nothing is set up at this time Gait Assessment Gait Gait Assistance Required: Contact Guard Assist,Minimum Assistance,1 Person Assist Distance (Feet) 30 Able to Maintain Weight Bearing Status Yes During Gait Assistive Devices Assistive Device None,Gait Belt,Straight Cane Orthotic/Prosthetic Devices or Brace: Yes Gait Deviations General Gait Pattern Antalgic,Decreased Stride Length,Decreased Feet Clearance,Flexed Trunk Factors Limiting Gait Function Factors Limiting Gait Function Decreased Activity Tolerance, Decreased Strength,Limited Range of Motion,Pain,Poor Balance,Poor Safety Awareness PT-Balance Assessment Sitting Balance and Reactions Static Sitting Balance Ability Good Dynamic Sitting Balance Ability Good Standing Balance and Reactions Static Standing Balance Ability Fair Dynamic Standing Balance Ability Poor Device Used without AD M5 PT-IP Objective Assessments Start: 11/28/20 14:20 Freq: NEEDED Status: Active Protocol: Document 11/28/20 11:40 AB (Rec: 11/28/20 14:44 AB [id number]) Orientation Orientation/Cognition Level of Alertness Alert Orientation Name,Place,Situation Safety Awareness Decreased Safety Awareness Memory Description Short Term Impaired Gross Range of Motion Lower Extremity ROM Assessment Within Functional Limits Strength Lower Extremity Strength Assessment Within Functional Limits Muscle Tone Muscle Tone WNL Yes M6 PT-IP Treatment Start: 11/28/20 14:20 Freq: NEEDED Status: Active Protocol: Document 11/28/20 11:40 AB (Rec: 11/28/20 14:44 AB [id number]) Physical Therapy Treatment Education Education Provided Safety M7 PT-IP Assessment and Plan Start: 11/28/20 14:20 Freq: NEEDED Status: Active Protocol: Document 11/28/20 11:40 AB (Rec: 11/28/20 14:44 AB [id number]) PT Summary Assessment and Plan Potential Rehabilitation Potential Good Status of Condition at Evaluation Evolving Summary Impairments Pain,ROM,Strength,Balance, Coordination,Sensation,Tone, Cognition,Bed Mobility, Transfers,Gait,Activity Tolerance Assessment Summary pt requiring CGA to min A with mobility. educated on safety and use of AD. agreed to use SPC but refused to use FWW. pt also refused to go to SNF. pt needs assistance at home and stated that she will set up one. pt will need services. will continue to assess progress Goals Bed Mobility Goal Independent Transfer Goal Independent,Cane Gait Goal Independent,Cane Gait Distance 200 Other Goals up/down 12 steps B rail SBA improve ambulation without AD 150 ft SBA Days to Meet Goals 5 Frequency of Treatment Frequency Of Treatment Once a Day Treatment Plan Physical Therapy Treatment Plan Bed Mobility Training,Transfer Training,Gait Training, Therapeutic Exercise,Balance Retraining,Discharge Planning, Hot or Cold Pack,Neuromuscular Re-ed,Coordination Retraining Precautions Cervical Spine Precautions Rigid Collar,No Heavy Lifting, Log Roll Other Precautions falls Recommendations To Nursing Amount of Assist Needed 1 Person Assist Discharge Recommendations PT Discharge Recommendations Home with Assistance,Home Health Equipment Needed for Home Before SPC Discharge Transportation Needs at Discharge Private Vehicle,Wheelchair/ Cabulance
--- NOTE | 2020-11-28 14:45 | OT.IP.EVAL ---
Current Diagnoses Chronic atrial fibrillation, unspecified (11/27/20) Unspecified atrial fibrillation (11/27/20) Laceration without foreign body of scalp, initial encounter (11/27/20) Laceration without foreign body of other part of head, initial encounter (11/27/20) Fracture of tooth (traumatic), initial encounter for closed fracture (11/27/20) Fracture of orbit, unspecified, initial encounter for closed fracture (11/27/20) Concussion with loss of consciousness of unspecified duration, initial encounter (11/27/20) Unspecified injury of head, initial encounter (11/27/20) Unspecified displaced fracture of fifth cervical vertebra, initial encounter for closed fracture (11/27/20) Contusion of right wrist, initial encounter (11/27/20) Fall on same level, unspecified, initial encounter (11/27/20) 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 (11/27/20) Other shelter (current) drug therapy (11/27/20) Past Medical History (Last Reviewed 11/28/20 @ 09:54 by Lauren Low MD) Age-related osteoporosis without current pathological fracture (07/07/17) Asthma (Unknown) Atrial fibrillation (~2004) Atrial flutter (Unknown) Cardiac arrhythmia (Unknown) Cataracts, bilateral (Unknown) Chickenpox (1942) Colon polyps (Unknown) Essential hypertension Hemorrhoids (Unknown) History of cardiac radiofrequency ablation History of cardioversion (2008) History of GI bleed (Unknown) Hx of multiple pulmonary nodules (Unknown) Hyperlipemia (Unknown) Hyperlipidemia Hypertension (Unknown) Hypothyroidism Hypothyroidism (Unknown) Measles (~1942) Multinodular thyroid (Unknown) Mumps (~1942) Osteopenia (Unknown) Osteoporosis (~2015) Urinary incontinence (Unknown) Vertigo (~2012) Surgical History (Last Reviewed 11/28/20 @ 09:54 by Lauren Low MD) Fibroids (1977) History of cardiac radiofrequency ablation Occupational Therapy Inpatient Evaluation/Re-Eval M1 PT/OT-IP Prior Functional Status Start: 11/28/20 14:20 Freq: NEEDED Status: Active Protocol: Document 11/28/20 14:58 [facility] (Rec: 11/28/20 15:28 [facility] [id number]) Medical Review Prior Functional Status Medical History Reviewed Yes Communication able to make needs known Mobility and Gait pt stated that she is independent with all mobilities and ambulation without AD Activities of Daily Living and IADL's Pt states prior was completely independent with all her ADl, IADL, driving, and walking her dog. Social History Household Members none Living Arrangements House Number of Floors (Floors) Two Floors Number of Stairs To Enter/Railing? has no steps to enter and can stay on main level of the house 12 steps B rail for upstairs walk in shower Home Environment High Toilet,Walk in Shower,Tub /Shower,Built-In Shower Seat M2 OT-IP Current Condition Start: 11/28/20 14:57 Freq: Status: Active Protocol: Document 11/28/20 14:58 [facility] (Rec: 11/28/20 15:28 [facility] [id number]) Occupational Therapy Current Condition Current Condition Evaluation Date 11/28/20 Treatment Diagnosis GFL, C5 vertebral fx, right wrist injury, decreased mobility Diagnosis Onset Date 11/27/20 Post Operative Precautions Cervical Spine Precautions Rigid Collar,No Heavy Lifting, Log Roll Other Precautions Pt to have right wrist brace on M3 OT- IP Subjective and Pain Start: 11/28/20 14:57 Freq: Status: Active Protocol: Document 11/28/20 14:58 [facility] (Rec: 11/28/20 15:28 [facility] [id number]) OT- Subjective Occupational Therapy Visit Type Type Initial Evaluation Visit Start Time 13:32 Visit Stop Time 14:45 Total Visit Minutes 72 Occupational Therapy Visit Comments Patient Comments Pt agreed to get up for OT eval. Patient/Caregiver Goals To go home. OT Pain Assessment Pain When Pain Assessed At Rest Pain Present Pain Present Pain Reported M4 OT- IP ADL's Start: 11/28/20 14:57 Freq: Status: Active Protocol: Document 11/28/20 14:58 [facility] (Rec: 11/28/20 15:28 [facility] [id number]) OT [id number] Comments OT Self-Feeding Comments NOt at meal time. Pt realizes to be careful for eating at this time as hard collar in on . OT ADL-Grooming General Evaluation Grooming Ability Minimal Assistance Comments OT Grooming Comments Assist to comb her hair as her hair has dried blood on it. OT ADL-Oral Care Comments Oral Care Comments Not performed. OT ADL-Dressing General Eval Lower Body Dressing Ability Minimal Assistance Comments OT Dressing Comments Pt able to cross her legs over to do her socks, but not able to use her right hand for use of sock aid. Pt has good understanding for use or inspector hairspring to assist to clothing to get over her feet. OT ADL-Toileting General Evaluation Toileting Ability Standby Assistance Comments OT Toileting Comments Pt not able to wipe with her right hand and needing to use her left hand for now. OT ADL-Bathing Comments OT Bathing Comments Pt has a walk in shower upstair and tub/shower on main level and would benefit form a shower chair and someone to assist. Pt states will just sponge off initially. M5 OT- IP IADL's Start: 11/28/20 14:57 Freq: Status: Active Protocol: Document 11/28/20 14:58 [facility] (Rec: 11/28/20 15:28 [facility] [id number]) OT-Instrumental Activities of Daily Living Home Safety Awareness Awareness of Need for Assistance at Home Decreased Awareness Ability to Problem Solve Emergency Able to Problem Solve Situations Medication Management Medication Management Comments Would be best for someone to stay with pt initially to assist for her needs especially when she is taking pain medications, pt states does not think well , in addition pt states did not sleep well. Money Management Money Management Comments Best for someone to assist pt for all her needs at this time due to her decreased dynamic balance, use of rigid collar, right wrist pain and in a brace, and not having slept well. Meal Preparation Meal Preparation Comments Best for someone to assist pt for all her needs at this time due to her decreased dynamic balance, use of rigid collar, right wrist pain and in a brace, and not having slept well. Insurance Investigator Insurance Investigator Comments Best for someone to assist pt for all her needs at this time due to her decreased dynamic balance, use of rigid collar, right wrist pain and in a brace, and not having slept well. Driving Driving Comments Suggest no driving at this time as rigid collar limits her neck movements. M6 OT- IP Functional Cognition Start: 11/28/20 14:57 Freq: Status: Active Protocol: Document 11/28/20 14:58 [facility] (Rec: 11/28/20 15:28 [facility] [id number]) Cognitive Factors Limiting Selfcare Function Cognitive Ability Level of Alertness Alert,Confusional State Patient Orientation Name,Age,Birthday,Month,Date, Year,Day of Week,Place, Situation Attention Span Ability Capable of Focused Attention, Capable of Sustained Attention Ability to Follow Commands Able to Follow One Step Commands with Increased Time, Able to Follow One Step Commands with Repetition Problem Solving Ability Needs Assist to Identify Solutions Cognitive Comments Cognitive Assessment Comments Pt scored 100 seconds on [place] making Part B which score is 70% for her age group however implies moderate impairment for visual attention, task switching, speed of processing , mental flexibilty, and executive functioning. Pt feel that her lack of sleep is also affecting her thinking. Initially pt not open to calling her kids to tell them that she is in the hospital, I do not want to worry them or bother them. After OT session, pt able to realize best to call her kids to let them know what has happened. In addition pt able to realize that this is the second severe fall that she had had and that is probably time for her to think about moving to an assisted living facility. OT- Vision and Hearing OT- Hearing Assessment OT- Hearing Assessment Hearing Impaired OT- Vision Assessment Visual Acuity Glasses All The Time Visual Attentiveness Impaired Occular Pursuits WFL Visual Gayle Impaired Vision Assessment Comments Left eye not able to see clearly, however pt states wears glasses for this. However that her glasses broke due to her fall. Noted decreased peripheral vision for left eye as well. Educated pt to be caution of depth perception and that use of cane would be safer to get around at this time and to be sure to have lots of lighting in order to see well. M7 OT- IP Mobility and Balance Start: 11/28/20 14:57 Freq: Status: Active Protocol: Document 11/28/20 14:58 [facility] (Rec: 11/28/20 15:28 [facility] [id number]) OT- Bed Mobility Assessment Supine to Sit Supine to Sit Assist Standby Assistance,1 Person Assistance Sit to Supine Sit to Supine Assist Standby Assistance,1 Person Assistance Scooting Scooting to Edge of Bed Standby Assistance,1 Person Assistance OT-Transfer Assessment Sit to and From Stand Sit to and from Stand Standby Assistance,1 Person Assistance Transfers Transfer Ability Standby Assistance,Contact Guard Assistance,1 Person Assistance Technique Transfer Destination Bed,Chair,Toilet Transfer Technique Stand Step Pivot Devices Transfer Assistive Devices None,Gait Belt,Straight Cane Comments Mobility Comments Pt gets up and down from her right side, however due to her pain in her right wrist , suggested to get in and out of the bed from the left side. Pt able to do without difficulty and good safety. OT- Gait Assessment Comments Gait Ability Comments CGA to SBA without a device and wide base of support. Pt distant SBA with cane. OT- Balance Assessment Sitting Balance and Reactions Static Sitting Balance Ability Normal Dynamic Sitting Balance Ability Good Standing Balance and Reactions Static Standing Balance Ability Good Dynamic Standing Balance Ability Fair M8 OT- IP Objective Assessments Start: 11/28/20 14:57 Freq: Status: Active Protocol: Document 11/28/20 14:58 [facility] (Rec: 11/28/20 15:28 [facility] [id number]) OT Gross Range of Motion Upper Extremity Range of Motion Assessment Right Impaired OT Strength Upper Extremity Strength Assessment Right Impaired Comments Strength Comments Right wrist slightly swollen and limited in movement due to pain. Initially pt refuse use of wrist brace and then later agreed to getting one. Educated pt how to niharika doff the right wrist brace. Pt needing VISHNU to help niharika the brace. M9 OT- IP Assessment and Plan Start: 11/28/20 14:57 Freq: Status: Active Protocol: Document 11/28/20 14:58 [facility] (Rec: 11/28/20 15:28 [facility] [id number]) OT Summary Assessment and Plan Potential Rehabilitation Potential Good Analytic Complexity at Evaluation Moderate Summary OT Impairments Pain,Range of Motion,Strength, Balance,Coordination, Functional Cognition, Functional Mobility,Grooming, Dressing,Toileting,Bathing, Toilet Transfers,Shower Transfers,Activity Tolerance Progress Towards Goals Progressing Toward Goals,Slow Progress due to Pain Assessment Summary Pt mod complexity and here due to GLF and main deficits are decreased vision, pain, and now having to wear a right wrist brace and rigid collar. Pt is a bit confused initially and kept changing details as to where she was going to take a shower. Pt has decreased insight to her needs, but at the end of the session realizes that she will need assist at home. Pt would benefit form home health and someone to stay with her initially to assist with the dog and cat, IADl, and bathing needs. Goals Self-Feeding Goal Independent Grooming Goal Independent Dressing Goal Independent Toileting Goal Independent Bathing Goal Independent Toilet Transfer Goal Independent Shower Transfer Goal Independent Days to Meet Goals 3 Frequency of Treatment Frequency Of Treatment Once a Day Treatment Plan OT Treatment Plan ADL Training,Functional Cognition Training,Functional Mobility,Patient/Family Education,Discharge Planning Other Treatment Recommendations and Next shower Treatment Focus Discharge Recommendations OT Discharge Recommendations Home with 24/7 Assist Available,Home Health Home Equipment Needs SPC Transportation Needs at Discharge Private Vehicle
[2020-11-28] MEDS: BUDESONIDE 0.5 MG/2 ML NEB INH (19:21)
[2020-11-29 01:40] VITALS: BP 120/86; PULSE 71; RESP 16; TEMP 36.9; O2SAT 97
[2020-11-29] MEDS: HYDROCODONE/ACET 5/325 TABLET 1 TAB PO ×2 (01:53→06:01)
--- NOTE | 2020-11-29 02:29 | PC.NURSE ---
Patient is alert and oriented. Breath sounds CTA with RA sat of 97%. HRR w/telemetry reading of SR w/BBB. Denies nausea. BT present and abdomen is soft. Occasional urinary dribbling but no further incontinence; denies dysuria, frequency or urgency. Is able to move herself in bed. Up to BSC with cane and 1 assist; still unsteady on feet. Complaint of right wrist pain at 4/10 so medicated with Vicodin; wrist/hand is swollen on palm of hand below 1st finger but refusing to wear hand splint and declined ice pack. Wearing cervical collar and denies any neck pain. Is able to open left eye tonight and denies any blurred vision or eye discomfort. Refuses use of SCD's as cannot sleep with them on; reminded to ankle wave when awake. Fall risk score is high and bed alarm is activated.
[2020-11-29] MEDS: LEVOTHYROXINE 100 MCG TABLET PO (06:00)
[2020-11-29 06:03] VITALS: BP 118/71; PULSE 83; RESP 16; TEMP 36.6; O2SAT 95
[2020-11-29] MEDS: METOPROLOL IR 25 MG TABLET 37.5 MG PO (06:55)
[2020-11-29 08:15] VITALS: BP 100/70; PULSE 84; RESP 16; TEMP 36.6; O2SAT 96
[2020-11-29] MEDS: MAGNESIUM OXIDE 400 MG TABLET PO (08:50)
[2020-11-29] MEDS: SODIUM CHLORIDE 0.9% FLUSH 10 ML IV (08:51)
--- NOTE | 2020-11-29 09:53 | OT.IP.TRT ---
Current Diagnoses Chronic atrial fibrillation, unspecified (11/27/20) Unspecified atrial fibrillation (11/27/20) Laceration without foreign body of scalp, initial encounter (11/27/20) Laceration without foreign body of other part of head, initial encounter (11/27/20) Fracture of tooth (traumatic), initial encounter for closed fracture (11/27/20) Fracture of orbit, unspecified, initial encounter for closed fracture (11/27/20) Concussion with loss of consciousness of unspecified duration, initial encounter (11/27/20) Unspecified injury of head, initial encounter (11/27/20) Unspecified displaced fracture of fifth cervical vertebra, initial encounter for closed fracture (11/27/20) Contusion of right wrist, initial encounter (11/27/20) Fall on same level, unspecified, initial encounter (11/27/20) 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 (11/27/20) Other termite control service representative (current) drug therapy (11/27/20) Occupational Therapy Treatment Note M2 OT-IP Current Condition Start: 11/28/20 14:57 Freq: Status: Active Protocol: Document 11/28/20 14:58 [facility] (Rec: 11/28/20 15:28 [facility] [id number]) Occupational Therapy Current Condition Current Condition Evaluation Date 11/28/20 Treatment Diagnosis GFL, C5 vertebral fx, right wrist injury Diagnosis Onset Date 11/27/20 Post Operative Precautions Cervical Spine Precautions Rigid Collar,No Heavy Lifting, Log Roll Other Precautions Pt to have right wrist brace on as needed. M3 OT- IP Subjective and Pain Start: 11/28/20 14:57 Freq: Status: Active Protocol: Document 11/29/20 09:58 [facility] (Rec: 11/29/20 10:09 [facility] [id number]) OT- Subjective Occupational Therapy Visit Type Type Treatment Note Visit Start Time 09:15 Visit Stop Time 09:53 Total Visit Minutes 38 Occupational Therapy Visit Comments Patient Comments Pt wanting to rinse off her hair. Nurse states okay to do so but just with water at this time. Pt states does not want to use the right wrist brace at this time. Patient/Caregiver Goals To go home. OT Pain Assessment Pain When Pain Assessed During Mobility Pain Present Pain Present Denied Pain M4 OT- IP ADL's Start: 11/28/20 14:57 Freq: Status: Active Protocol: Document 11/29/20 09:58 [facility] (Rec: 11/29/20 10:09 [facility] [id number]) OT [id number] Comments OT Self-Feeding Comments NOt at meal time. Pt realizes to be careful for eating at this time while wearing the rigid collar. OT ADL-Dressing General Eval Lower Body Dressing Ability Standby Assistance Comments OT Dressing Comments Mainly for balance as needed. Pt needing assist to help change out padding for rigid collar and to adjust the straps. Pt would benefit from assist at home for proper fitting. OT ADL-Bathing Bathing Type Bathing Type Sponge Bath Comments OT Bathing Comments Pt able to sponge off after set-up from nursing earlier. Pt needing assist to help rinse out her hair with water in the shower. Pt's rigid collar taken off and educated pt to keep her neck still while nurse and OT assist to help rinse out her hair due to havin dried blood in it. Planning Coordinator Planning Coordinator Comments Best for someone to assist pt for all her needs at this time due to her decreased dynamic balance, use of rigid collar, right wrist pain and in a brace, and not having slept well. Driving Driving Comments Suggest no driving at this time as rigid collar limits her neck movements. M6 OT- IP Functional Cognition Start: 11/28/20 14:57 Freq: Status: Active Protocol: Document 11/29/20 09:58 [facility] (Rec: 11/29/20 10:09 [facility] [id number]) Cognitive Factors Limiting Selfcare Function Cognitive Ability Level of Alertness Alert Patient Orientation Name,Age,Birthday,Month,Date, Year,Day of Week,Place, Situation Attention Span Ability Capable of Focused Attention, Capable of Sustained Attention Ability to Follow Commands Able to Follow One Step Commands Safety Awareness Underestimates Need for Assistance Cognitive Comments Cognitive Assessment Comments Pt feels that she is able to care for herself at home. Suggested to have someone there to assist initially due to having pets, her neck collar limits her vision , and also due to her decreased dynamic balance at this time. M7 OT- IP Mobility and Balance Start: 11/28/20 14:57 Freq: Status: Active Protocol: Document 11/29/20 09:58 [facility] (Rec: 11/29/20 10:09 [facility] [id number]) OT-Transfer Assessment Sit to and From Stand Sit to and from Stand Standby Assistance,1 Person Assistance Transfers Transfer Ability Standby Assistance,Contact Guard Assistance,1 Person Assistance Technique Transfer Destination Bed,Shower Stall Transfer Technique Stand Step Pivot Devices Transfer Assistive Devices Gait Belt,Straight Cane Comments Mobility Comments Pt needing CGA while stepping over threshold of the shower. Pt a little slow to move initially and unsteady. Pt getting whoozy while seated on the edge of the bed and BP 88 /50, taken again at 104/77. Pt states she usually runs low at home. Educated to be aware of any symptoms and take it slow. OT- Gait Assessment Comments Gait Ability Comments CGA with SPC today. OT- Balance Assessment Sitting Balance and Reactions Static Sitting Balance Ability Normal Dynamic Sitting Balance Ability Good Standing Balance and Reactions Static Standing Balance Ability Fair Dynamic Standing Balance Ability Poor M9 OT- IP Assessment and Plan Start: 11/28/20 14:57 Freq: Status: Active Protocol: Document 11/29/20 09:58 [facility] (Rec: 11/29/20 10:09 [facility] [id number]) OT Summary Assessment and Plan Potential Rehabilitation Potential Good Analytic Complexity at Evaluation Moderate Summary OT Impairments Pain,Range of Motion,Strength, Balance,Coordination, Functional Cognition, Functional Mobility,Grooming, Dressing,Toileting,Bathing, Toilet Transfers,Shower Transfers,Activity Tolerance Progress Towards Goals Slow Progress due to Medical Issues Assessment Summary Pt moving a little slower today and needing CGA to close SBA . Pt would greatly benefit from someone to stay with her initially when going home to assist with her needs as the rigid collar limits her head movement, vision, and pt is unsteady on her feet for dynamic balance at this time. Therefore suggest home with assist and home health. Goals Self-Feeding Goal Independent Grooming Goal Independent Dressing Goal Independent Toileting Goal Independent Bathing Goal Independent Toilet Transfer Goal Independent Shower Transfer Goal Independent Days to Meet Goals 2 Frequency of Treatment Frequency Of Treatment Once a Day Treatment Plan OT Treatment Plan ADL Training,Functional Cognition Training,Functional Mobility,Patient/Family Education,Discharge Planning Discharge Recommendations OT Discharge Recommendations Home with 27/10 Assist Available,Home Health Transportation Needs at Discharge Private Vehicle
--- NOTE | 2020-11-29 11:48 | PT.IPTN ---
Current Diagnoses Chronic atrial fibrillation, unspecified (11/27/20) Unspecified atrial fibrillation (11/27/20) Laceration without foreign body of scalp, initial encounter (11/27/20) Laceration without foreign body of other part of head, initial encounter (11/27/20) Fracture of tooth (traumatic), initial encounter for closed fracture (11/27/20) Fracture of orbit, unspecified, initial encounter for closed fracture (11/27/20) Concussion with loss of consciousness of unspecified duration, initial encounter (11/27/20) Unspecified injury of head, initial encounter (11/27/20) Unspecified displaced fracture of fifth cervical vertebra, initial encounter for closed fracture (11/27/20) Contusion of right wrist, initial encounter (11/27/20) Fall on same level, unspecified, initial encounter (11/27/20) 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 (11/27/20) Other teamcenter consultant (current) drug therapy (11/27/20) Physical Therapy Treatment Note M2 PT-IP Current Condition Start: 11/28/20 14:20 Freq: NEEDED Status: Active Protocol: Document 11/28/20 11:40 AB (Rec: 11/28/20 14:44 AB [id number]) Physical Therapy Current Condition Current Condition Evaluation Date 11/28/20 Treatment Diagnosis GLF s/p C5 fx; difficulty in walking Onset Date 11/27/20 Precautions Cervical Spine Precautions Rigid Collar,No Heavy Lifting, Log Roll Other Precautions falls M3 PT-IP Subjective Start: 11/28/20 14:20 Freq: NEEDED Status: Active Protocol: Document 11/29/20 11:23 CLB (Rec: 11/29/20 12:27 CLB [id number]) Subjective Physical Therapy Visit Type Type Treatment Note Visit Start Time 11:23 Visit Stop Time 11:48 Total Visit Minutes 25 Number of COLLECTION ADVISOR Visits 1 Physical Therapy Visit Comments Patient Comments pt is agreeable to do PT Therapy Pain Assessment Pain When Pain Assessed During Mobility Pain Present Pain Present Pain Reported Location right wrist Scale Used pain scale not stated M4 PT-IP Mobility and Gait Start: 11/28/20 14:20 Freq: NEEDED Status: Active Protocol: Document 11/29/20 11:23 CLB (Rec: 11/29/20 12:27 CLB [id number]) PT-Bed Mobility Assessment Supine to Sit Supine to Sit Standby Assistance,1 Person Assistance,Head of Bed Elevated Sit to Supine Sit to Supine Standby Assistance,1 Person Assistance,Head of Bed Elevated PT-Transfer Assessment Sit to and From Stand Sit to and from Stand Contact Guard Assistance,1 Person Assistance,Use of Upper Extremities Equipment Transfer Assistive Device None,Gait Belt Orthotic/Prosthetic Devices or Brace: Yes Transfers Transfer Destination Bed Transfer Technique ambulated Transfer Ability Level of Assist Contact Guard Assistance,1 Person Assistance,Use of Upper Extremities Comments Mobility Comments Pt in bed and able to get to EOB SBA, Pt stood CGA. Pt ambulated in room w/SPC/CGA with verbal cues for sequencing. Pt then ambulated w/o AD CGA then SBA w/o LOB. Pt moves slowly with decreased activity tolerance. Pt returned to bedside sitting on bed SBA. Pt returned to supine SBA and performed LE ther ex. Pt left in bed with all needs within reach. Gait Assessment Gait Gait Assistance Required: Standby Assistance,Contact Guard Assist,1 Person Assist Distance (Feet) 125 Able to Maintain Weight Bearing Status Yes During Gait Assistive Devices Assistive Device None,Gait Belt,Straight Cane Orthotic/Prosthetic Devices or Brace: Yes Gait Deviations General Gait Pattern Antalgic,Decreased Stride Length,Decreased Feet Clearance,Flexed Trunk Factors Limiting Gait Function Factors Limiting Gait Function Decreased Activity Tolerance, Decreased Strength,Limited Range of Motion,Pain,Poor Balance,Poor Safety Awareness Comments Gait Comments Pt ambulated with SPC using three point step pattern requiring CGA, pt then ambulated w/o AD and with CGA then SBA. PT-Balance Assessment Sitting Balance and Reactions Static Sitting Balance Ability Good Dynamic Sitting Balance Ability Good Standing Balance and Reactions Static Standing Balance Ability Fair Dynamic Standing Balance Ability Poor Device Used without AD M5 PT-IP Objective Assessments Start: 11/28/20 14:20 Freq: NEEDED Status: Active Protocol: Document 11/28/20 11:40 AB (Rec: 11/28/20 14:44 AB [id number]) Orientation Orientation/Cognition Level of Alertness Alert Orientation Name,Place,Situation Safety Awareness Decreased Safety Awareness Memory Description Short Term Impaired Gross Range of Motion Lower Extremity ROM Assessment Within Functional Limits Strength Lower Extremity Strength Assessment Within Functional Limits Muscle Tone Muscle Tone WNL Yes M6 PT-IP Treatment Start: 11/28/20 14:20 Freq: NEEDED Status: Active Protocol: Document 11/29/20 11:23 CLB (Rec: 11/29/20 12:27 CLB [id number]) Physical Therapy Treatment Exercises Exercises Ankle Pumps,Gluteal Sets,Quad Sets Education Education Provided Safety M7 PT-IP Assessment and Plan Start: 11/28/20 14:20 Freq: NEEDED Status: Active Protocol: Document 11/29/20 11:23 CLB (Rec: 11/29/20 12:27 CLB [id number]) PT Summary Assessment and Plan Potential Rehabilitation Potential Good Status of Condition at Evaluation Evolving Summary Impairments Pain,ROM,Strength,Balance, Coordination,Sensation,Tone, Cognition,Bed Mobility, Transfers,Gait,Activity Tolerance Assessment Summary Pt requiring SBA for bed mobility, CGA for sit-stand. Pt ambulated with SPC using three point step pattern as pt unable to sequence reciprocal gait pattern. Pt then ambulated w/o AD CGA to start then SBA. Pt is cautions and moves slowly. Pt lives alone and will needs assist at discharge and would benefit from HH. Goals Bed Mobility Goal Independent Transfer Goal Independent,Cane Gait Goal Independent,Cane Gait Distance 200 Other Goals up/down 12 steps B rail SBA improve ambulation without AD 150 ft SBA Days to Meet Goals 5 Frequency of Treatment Frequency Of Treatment Once a Day Treatment Plan Physical Therapy Treatment Plan Bed Mobility Training,Transfer Training,Gait Training, Therapeutic Exercise,Balance Retraining,Discharge Planning, Hot or Cold Pack,Neuromuscular Re-ed,Coordination Retraining Precautions Cervical Spine Precautions Rigid Collar,No Heavy Lifting, Log Roll Other Precautions falls Recommendations To Nursing Amount of Assist Needed 1 Person Assist Discharge Recommendations PT Discharge Recommendations Home with Assistance,Home Health Equipment Needed for Home Before SPC Discharge Transportation Needs at Discharge Private Vehicle,Wheelchair/ Cabulance
--- NOTE | 2020-11-29 11:59 | P.PN_ITS ---
Subjective Subjective Date Patient Seen: 11/29/20 Time Patient Seen: 11:59 Interval history: Patient denies palpitations or chest pain. Slight nausea this AM after pain medication. Tele showing sinus rhythm predominantly. Exam Vital Signs (past 8 hours): - 11/29/20 06:03 11/29/20 08:15 Temperature 97.8 F 97.8 F Pulse Rate 83 84 Respiratory Rate 16 16 Blood Pressure 118/71 100/70 Pulse Oximetry 95 96 Oxygen Delivery Method Room Air Oxygen Flow Rate 0 Narrative Exam Narrative: Patient is a delightful alert and orientated 85-year-old female in no distress at this time HEENT: sutures in place over lacerations, ecchymosis present. NECK: In C-collar CARDIOVASCULAR: RRR without m/r/g. RESPIRATORY: Breath sounds equal bilaterally, no wheezes rales or rhonchi bilaterally. NEUROLOGICAL: No noted gross cranial nerve deficit. Normal speech. Patient is alert and orientated x3, appropriate affect, thought context and judgment for age. Objective Labs Result Diagrams: 11/28/20 05:15 11/28/20 05:15 [facility] Medical History (Updated 11/28/20 @ 10:08 by Lauren Low MD) Age-related osteoporosis without current pathological fracture (07/07/17) Asthma (Unknown) Atrial fibrillation (~2004) Atrial flutter (Unknown) Cardiac arrhythmia (Unknown) Cataracts, bilateral (Unknown) Chickenpox (194) Colon polyps (Unknown) Essential hypertension Hemorrhoids (Unknown) History of cardioversion (2008) History of GI bleed (Unknown) Hx of multiple pulmonary nodules (Unknown) Hyperlipemia (Unknown) Hyperlipidemia Hypertension (Unknown) Hypothyroidism Hypothyroidism (Unknown) Measles (~1942) Multinodular thyroid (Unknown) Mumps (~1942) Osteopenia (Unknown) Osteoporosis (~2014) Urinary incontinence (Unknown) Vertigo (~2012) Surgical History Fibroids (1977) History of cardiac radiofrequency ablation Family History Father Atrial fibrillation Mother Old age Brother No problems noted. Social History household members: none Smoking Status: Former smoker Tobacco: How many years used: 35 second hand exposure: Yes (When I was as a kid. My mom smoked.) alcohol intake: former substance use type: does not use Assessment & Plan Assessment & Plan narrative: Ruma Yates is 85-year-old female admitted to the surgery Service Dr. Low for a [facility], superior orbital fracture, C5 fracture, and atrial fibrillation with RVR. Hospital service will consult regarding management of atrial fibrillation. 1. Modified trauma mechanical ground level fall with head injury, on Eliquis, resulting in multiple head lacerations x4, superior orbital fracture, and C5 fracture, acute, present on admission -Managed by Dr. Low -neuro checks q.4 hours while awake -okay to continue eliquis from medicine perspective. 2. Atrial fibrillation with RVR, acute on chronic, present on admission -Continue home dose of metoprolol 37.5 mg p.o. b.i.d. -Continue home dose of dofetilide 250 mg p.o. b.i.d.. Of note patient's Qtc is prolonged near 500 (497). This has been present before and discussion is noted in prior note from her human services care specialist, medication was ultimately continued. -continue home metoprolol, can likely decrease given dofetilide if slightly hypotensive. 3. Hypothyroidism, acquired, chronic, present on admission -continue home dose of levothyroxine 100 mcg daily Code Status: Full code Surrogate decision maker: Patient has a durable power of environmental attorney [employer] COVID PCR: Negative Patient medically stable at this time. Medicine service to sign off. Do not hesitate to contact medicine service with questions or for re-consultation.
[2020-11-29 12:55] VITALS: BP 102/60; PULSE 85; RESP 16; TEMP 36.7; O2SAT 96
--- NOTE | 2020-11-29 14:47 | PC.NURSE ---
Patient ready for d/c to home. Instructions given on f/u appts with general surgery, ortho, and pcp. Info given on mediations and fall prevention. Pt denies any questions at this time. Patient being taken home with friend via private vehicle.
--- NOTE | 2020-11-29 15:41 | CM.DPC ---
DCP continued: case received, EMR and hand off from [place] Jacqueline reviewed and noted plan for d/c to home with [facility] when stable for same. Spoke with Alexa/eloisa Barillas at [facility]. She confirmed they had all they needed except the d/c summary. Unclear when this will be ready so faxed the progress note for today from consulting hospitalist and the d/c order specifics in the d/c order placed today by [facility]: Dr. Ellison. Went to room then to confirm all with pt. She has already left for home in company of a friend.
--- NOTE | 2020-12-09 12:16 | PM.DS.1 ---
History of Present Illness History of Present Illness Date Patient Seen: 11/29/20 Chief complaint: Head and neck pain Narrative: The patient is a woman who had a ground level fall striking her head. She is chronically anticoagulated due to atrial fibrillation and she had brief episode of unconsciousness. She was brought to the emergency room where she was evaluated. Discharge Providers Provider Date of admission: 11/27/20 23:19 Discharge Date: 11/29/20 Primary care physician: Genia Aldana PA-C Consults: 11/27/20 23:33 Consult to Physician Routine Comment: Consulting Provider: Joao Keene Reason for consultation: assume care after 24 hrs is stable from trauma Has provider been notified: Yes 11/28/20 08:43 Consult to Physical Therapy Evaluate & Treat Comment: C 5 fracture, concusion Physician Instructions: Evaluate and Treat 11/28/20 08:44 Consult to Occupational Therapy Evaluate & Treat Comment: concusion, ground level fall Physician Instructions: Evaluate and treat 11/28/20 08:45 Consult to Discharge Planning Routine Comment: ground level fall, concussion 11/28/20 09:34 Consult to Orthopedic Surgery Routine Comment: Consulting Provider: Romie Ambrosio Reason for consultation: C5 fracture Has provider been notified: Yes 11/28/20 14:17 Consult to Home Health Routine Comment: Reason For Exam: Home Health RN, P.T, O.T. 11/28/20 14:39 Consult to Physical Therapy Evaluate & Treat Comment: Physician Instructions: Cane for home use Discharge provider: Darryl Ellison MD Summary Hospital Course Discharge Diagnosis: Chronic atrial fibrillation. Chronic anticoagulation with apixaban Concussion acute Acute lacerations of the forehead and scalp. Repaired. Fracture C5 acute Blunt injury right wrist acute without fracture Left inferior orbital fracture acute. Without muscle entrapment or displacement. Hypothyroidism chronic treated with medication Chronic hyperlipidemia on medication Hospital Course: The patient was neurologically intact in the emergency room. Scanning did not reveal any significant injury to her brain. Her cranium was intact. She did have a fracture of C5 and her left orbit. X-rays of her wrist failed to reveal a fracture. The patient was evaluated by Orthopedics and it was recommended she be discharged with a hard collar to follow-up in their office. There was no entrapment of her muscle related to eye movement and her extraocular movements are intact so no treatment be necessary of this fracture. She had suture repair of the lacerations on her scalp and forehead. This was done in the emergency room. Because of her chronic anticoagulation, her fall, and her concussion she was observed. She remained neurologically intact. She was able to ambulate and return to her pre admission functional level. She was discharged to home to follow-up in the office for suture removal. She was discharged on her preadmission medication. Exam Vital Signs (past 8 hours): Oxygen Delivery Method Room Air Oxygen Flow Rate 0 Narrative Exam Narrative: Extraocular movements were intact. Tongue was midline. Face symmetric though bruised. Sternocleidomastoid strength was equal bilaterally. Sensation to touch and motor function in the extremities were intact. Reflexes were intact. No drainage from her ears Objective Labs Result Diagrams: 11/28/20 05:15 11/28/20 05:15 [facility] Medical History Age-related osteoporosis without current pathological fracture (07/07/17) Asthma (Unknown) Atrial fibrillation (~2004) Atrial flutter (Unknown) Cardiac arrhythmia (Unknown) Cataracts, bilateral (Unknown) Chickenpox (194) Colon polyps (Unknown) Essential hypertension Hemorrhoids (Unknown) History of cardioversion (2008) History of GI bleed (Unknown) Hx of multiple pulmonary nodules (Unknown) Hyperlipemia (Unknown) Hyperlipidemia Hypertension (Unknown) Hypothyroidism Hypothyroidism (Unknown) Measles (~194) Multinodular thyroid (Unknown) Mumps (~194) Osteopenia (Unknown) Osteoporosis (~2015) Urinary incontinence (Unknown) Vertigo (~2012) Surgical History Fibroids (1977) History of cardiac radiofrequency ablation Family History Father Atrial fibrillation Mother Old age Brother No problems noted. Social History household members: none Smoking Status: Former smoker Tobacco: How many years used: 35 second hand exposure: Yes (When I was as a kid. My mom smoked.) alcohol intake: former substance use type: does not use Discharge Assessment & Plan Assessment and Plan Assessment: Stable injuries. Plan of Treatment: Follow-up in our office for suture removal and in the orthopedic office regarding her neck fracture. Discharge Plan Discharge Plan Patient Disposition: Home Provider Discharge Comment: You have a vertebral fracture and a fracture of the orbit of your left eye. Neither of these apparently require an operation. There was no fracture seen at your wrist. You should follow-up with the orthopedic surgeon about both your wrist and your neck. You should follow-up in my office to have your sutures removed from her face and scalp. Do not drive until Dr. Pitt gives you permission to do so. Given the pain in your wrist and the fracture in her neck it is a very bad idea to do this right now. You may remove your collar to shower and then place it back on. If you become constipated take a laxative like milk of magnesia. Your pain medicine prescription contains 325 mg of Tylenol. You may take additional Tylenol. Do not take more than a total of 3000 mg of Tylenol a day. Discharge orders & Medications Prescriptions: New hydrocodone-acetaminophen 5-325 mg tablet 1 tab PO Q6H PRN (Reason: pain) Qty: 10 RF: 0 Continued cholecalciferol (vitamin D3) [Vitamin D3] 2,000 unit Tablet 2,000 unit PO DAILY Qty: 0 RF: 0 metoprolol tartrate 25 MG tablet 37.5 mg PO BID Qty: 0 RF: 0 levothyroxine 100 mcg tablet 100 mcg PO QAM Qty: 90 RF: 0 Eliquis 5 mg tablet 5 mg PO BID RF: 0 Flovent HFA 110 mcg/actuation HFA aerosol inhaler 1 puff INHALATION BID RF: 0 dofetilide [Tikosyn] 250 mcg capsule 250 mcg PO Q12H RF: 0 magnesium oxide 400 mg magnesium capsule 400 mg PO DAILY RF: 0 levalbuterol tartrate 45 mcg/actuation HFA aerosol inhaler 1 - 2 puff INHALATION Q8HR PRN (Reason: Wheezing) RF: 0 Follow up/Referrals: Genia Aldana PA-C [Primary Care Provider] - Romie Ambrosio MD [Physician] - 2 Weeks ([address] Ambrosio. Continue to wear the hard cervical collar) Darryl Ellison MD [Physician] - 12/07/20 2:00 pm (If you already have an appointment please keep it. If not call my office and make an appointment to see me in 1. If you need to reach a doctor please call our office. If it is after hours listen to the message and you will be instructed how to page the doctor on-call for our practice. Have a pen and paper ready to write the 1 800 number down.) Diet/Activity/Treatments Diet: Diet as Tolerated Activity: hard cervical collar in place at all times Cold/Heat Therapy: use ice as needed for pain control Skin/Wound/Dressing Care Report to your healthcare provider any signs of infection, such as:: chills, fever, increased pain, unusual drainage and unusual redness Visit Report/Discharge Packet Instructions: How to Prevent Falls, DI for Prescription Opioid Use Discharge Data Primary Care Provider: Genia Aldana Attending Provider: Lauren Low
== END 2020-11-29 15:19 | disposition home or self-care (01) ==
LOC: ED 21:36 → AC 23:20
PROVIDERS: Nurse Practitioner Family; Admitting Provider Surgery; Emergency Provider Emergency Medicine; PCP Physician Assistant; Visit Provider Surgery
DX: S01.01XA Laceration without foreign body of scalp, initial encounter (principal); I48.20 Chronic atrial fibrillation, unspecified; S01.112A Laceration without foreign body of left eyelid and periocular area, initial encounter; S01.81XA Laceration without foreign body of other part of head, initial encounter; S12.400A Unspecified displaced fracture of fifth cervical vertebra, initial encounter for closed fracture; S02.85XA Fracture of orbit, unspecified, initial encounter for closed fracture; M25.531 Pain in right wrist; W01.198A Fall on same level from slipping, tripping and stumbling with subsequent striking against other object, initial encounter; Y92.000 Kitchen of unspecified non-institutional (private) residence as the place of occurrence of the external cause; E03.9 Hypothyroidism, unspecified; Z79.01 Long term (current) use of anticoagulants; Z20.822 Contact with and (suspected) exposure to COVID-19
CPT/HCPCS: 12004; 12013; 36415; 70450; 70486; 71045; 72040; 72125; 73110; 80048; 80053; 82550; 82553; 83735; 83880; 84443; 84484; 85025; 85610; 85730; 87635; 93005; 93010; 94640; 96374; 97110; 97116; 97162; 97166; 97530; 97535; 99217; 99218; 99285; 99291; C9803; G0378

== ENCOUNTER → 2020-12-14 13:27 | Outpatient (CLI) | payer MEDICARE, OTHER, SELFPAY ==
[2020-11-28 00:50] VITALS: BMI 26.8
[2020-12-14 14:39] LABS: Blood Urea Nitrogen 26 mg/dL (7-17); Calcium 10.5 mg/dL (8.4-10.2); Carbon Dioxide 30 mmol/L (22-32); Chloride 102 mmol/L (98-107); Estimated Glomerular Filt Rate > 60.0 mL/min (>60); Glucose 88 mg/dL (80-110); HEMOLYSIS < 15 (0-50); Potassium 5.2 mmol/L (3.4-5.1); Sodium 135 mmol/L (137-145)
== END ==
PROVIDERS: Internal Medicine Cardiovascular Disease; PCP Physician Assistant; Referring Provider Nurse Practitioner Pediatrics; Visit Provider Nurse Practitioner Pediatrics
DX: Z48.02 Encounter for removal of sutures (principal); S01.01XD Laceration without foreign body of scalp, subsequent encounter; Z51.81 Encounter for therapeutic drug level monitoring; Z79.899 Other long term (current) drug therapy
CPT/HCPCS: 36415; 80048; 99212

== ENCOUNTER → 2021-01-17 09:55 | Outpatient (CLI) | payer MEDICARE, OTHER, SELFPAY ==
[2020-11-28 00:50] VITALS: BMI 26.8
[2021-01-17 12:11] LABS: Alanine Aminotransferase 41 IU/L (<35); Albumin 4.1 g/dL (3.5-5.0); Albumin Globulin Ratio 1.5 (1.0-2.8); Alkaline Phosphatase 72 U/L (38-126); Aspartate Aminotransferase 33 IU/L (14-36); Bilirubin Total 0.5 mg/dL (0.2-1.3); Blood Urea Nitrogen 22 mg/dL (7-17); Calcium 10.6 mg/dL (8.4-10.2); Carbon Dioxide 29 mmol/L (22-32); Chloride 102 mmol/L (98-107); Estimated Glomerular Filt Rate > 60.0 mL/min (>60); Globulin 2.8 g/dL (1.7-4.1); Glucose 104 mg/dL (80-110); HEMOLYSIS < 15 (0-50); Sodium 137 mmol/L (137-145); Total Protein 6.9 g/dL (6.3-8.2)
[2021-01-17 12:29] LABS: Potassium 5.6 mmol/L (3.4-5.1)
== END ==
PROVIDERS: PCP Physician Assistant; Referring Provider Internal Medicine; Visit Provider Internal Medicine
DX: M81.0 Age-related osteoporosis without current pathological fracture (principal)
CPT/HCPCS: 36415; 80053

== ENCOUNTER → 2021-02-01 10:58 | Outpatient (CLI) | payer MEDICARE, OTHER, SELFPAY ==
[2019-10-13 21:50] VITALS: BMI 25.4
[2020-11-28 00:50] VITALS: BMI 26.8
--- NOTE | 2021-02-01 | DI.MG.S_ITS ---
BILATERAL DIGITAL SCREENING MAMMOGRAM 3D/2D WITH CAD: 02/01/2021 CLINICAL: Routine screening. Comparison is made to exams dated: 12/16/2019 mammogram, 08/27/2018 mammogram, 07/01/2017 mammogram - [facility], and 06/30/2016 mammogram - [facility]. The tissue of both breasts is heterogeneously dense. This may lower the sensitivity of mammography. Current study was also evaluated with a Computer Aided Detection (CAD) system. No significant masses, calcifications, or other findings are seen in either breast. Right breast scar marker. There has been no significant interval change. IMPRESSION: NEGATIVE There is no mammographic evidence of malignancy. A 1 year screening mammogram is recommended. This exam was interpreted at Station ID: [id number]. NOTE: For mammograms, a report in lay terms will be sent to the patient. Approximately 15% of breast malignancies will not be visualized mammographically. In the management of a palpable breast mass, a negative mammogram must not discourage biopsy of a clinically suspicious lesion. Electronically Signed By: Saurav Moctezuma M.D. slc/:02/01/2021 12:40:13 letter sent: Normal Exam ACR BI-RADS Category 1: Negative [id number]
== END ==
PROVIDERS: PCP Physician Assistant; Referring Provider Physician Assistant; Visit Provider Physician Assistant
DX: Z12.31 Encounter for screening mammogram for malignant neoplasm of breast (principal)
CPT/HCPCS: 77063; 77067

== ENCOUNTER → 2021-02-22 10:26 | Outpatient (CLI) | payer MEDICARE, OTHER, SELFPAY ==
[2020-11-28 00:50] VITALS: BMI 26.8
[2021-02-22] MEDS: COVID-19 VACC #3, MRNA(MOD) 50 MCG/0.25 ML VIAL IM (10:34)
== END ==
PROVIDERS: PCP Physician Assistant; Visit Provider Internal Medicine
DX: Z23 Encounter for immunization (principal)
CPT/HCPCS: 0013A; 91301

== ENCOUNTER → 2021-04-23 12:58 | Outpatient (CLI) | payer MEDICARE, OTHER, SELFPAY ==
[2020-11-28 00:50] VITALS: BMI 26.8
[2021-04-23 14:15] LABS: BUN Creatinine Ratio 25.3 (6-22); Blood Urea Nitrogen 19 mg/dL (7-17); Calcium 10.2 mg/dL (8.4-10.2); Carbon Dioxide 31 mmol/L (22-32); Chloride 101 mmol/L (98-107); Estimated Glomerular Filt Rate > 60.0 mL/min (>60); Glucose 102 mg/dL (80-110); HEMOLYSIS < 15 (0-50); Potassium 4.5 mmol/L (3.4-5.1); Sodium 136 mmol/L (137-145)
== END ==
PROVIDERS: PCP Physician Assistant; Referring Provider Internal Medicine Cardiovascular Disease; Visit Provider Internal Medicine Cardiovascular Disease
DX: Z51.81 Encounter for therapeutic drug level monitoring (principal); Z79.899 Other long term (current) drug therapy
CPT/HCPCS: 36415; 80048

== ENCOUNTER → 2021-05-22 15:26 | Outpatient (CLI) | payer MEDICARE, OTHER, SELFPAY ==
[2020-11-28 00:50] VITALS: BMI 26.8
--- NOTE | 2021-05-22 | DI.CT.S_ITS ---
PROCEDURE: CT FACIAL BONES WO CON INDICATIONS: Fracture of orbit, unspecified, initial encounter TECHNIQUE: Noncontrast 2.5 mm thick axial images acquired from the mandible through the frontal sinuses, with coronal and sagittal reformatting. For radiation dose reduction, the following was used: automated exposure control, adjustment of mA and/or kV according to patient size. COMPARISON: [facility], CT, CT FACIAL BONES WO [facility], 11/27/2020, 19:52. [facility], CT, CT FACIAL BONES WO [facility], 10/13/2019, 18:30. FINDINGS: Image quality: Excellent. Bones and teeth: The previously seen fracture involving the left superior orbital wall is no longer seen. No orbital fracture is now seen. No fractures of the hannah of the sinuses can now be seen. Nasal bones and septum are intact. Visualized portions of the mandible demonstrate no fractures or subluxation. Zygomatic arches are intact. Pterygoid plates are intact. Visualized portions of the skull base and auditory canals are intact. Apical lucency is again seen involving a maxillary molar posteriorly and on the right. Focal degenerative change is seen involving the C1-C2 interface anteriorly. Sinuses: There is moderate mucosal thickening involving right sphenoid sinus. Paranasal sinuses are otherwise well aerated, without fluid levels, mucosal thickening, or mucoceles. Mastoid air cells are aerated. Bilateral deangelo bullosa can be seen. Mild S shaped nasal septal deviation is seen. Soft tissues: No edema, masses, or fluid collections. No enlarged lymph nodes. No soft tissue lacerations or debris. Vascular: Visualized vascular structures appear normal in the absence of contrast. Bony vascular foramina and canals are intact. IMPRESSION: The previously seen fracture involving the left superior orbital wall is no longer seen. The blood previously seen within the left frontal sinus has resolved. There is now seen moderate mucosal thickening within the right sphenoid sinus. There is again seen a focal lucency involving a right posterior maxillary molar. Periapical abscess is presumed. Please correlate with dental examination. Dictated by: Arsalan Tejeda M.D. on 05/22/2021 at 14:54 Approved by: Arsalan Tejeda M.D. on 05/22/2021 at 14:57
== END ==
PROVIDERS: PCP Physician Assistant; Referring Provider Physician Assistant; Visit Provider Physician Assistant
DX: S02.85XA Fracture of orbit, unspecified, initial encounter for closed fracture (principal); J32.3 Chronic sphenoidal sinusitis; J34.2 Deviated nasal septum
CPT/HCPCS: 70486

== ENCOUNTER → 2021-07-22 13:59 | Outpatient (CLI) | payer MEDICARE, OTHER, SELFPAY ==
[2020-11-28 00:50] VITALS: BMI 26.8
[2021-07-22 15:18] LABS: BUN Creatinine Ratio 37.1 (6-22); Blood Urea Nitrogen 26 mg/dL (7-17); Calcium 9.7 mg/dL (8.4-10.2); Carbon Dioxide 31 mmol/L (22-32); Chloride 102 mmol/L (98-107); Estimated Glomerular Filt Rate > 60 mL/min (>60); Glucose 94 mg/dL (80-110); HEMOLYSIS < 15 (0-50); Potassium 5.1 mmol/L (3.4-5.1); Sodium 137 mmol/L (137-145)
== END ==
PROVIDERS: PCP Physician Assistant; Referring Provider Internal Medicine Cardiovascular Disease; Visit Provider Internal Medicine Cardiovascular Disease
DX: Z51.81 Encounter for therapeutic drug level monitoring (principal); Z79.899 Other long term (current) drug therapy
CPT/HCPCS: 36415; 80048

== ENCOUNTER → 2021-10-11 12:24 | Outpatient (CLI) | payer MEDICARE, OTHER, SELFPAY ==
[2020-11-28 00:50] VITALS: BMI 26.8
[2021-10-11 13:31] LABS: BUN Creatinine Ratio 35.6 (6-22); Blood Urea Nitrogen 26 mg/dL (7-17); Calcium 9.8 mg/dL (8.4-10.2); Carbon Dioxide 31 mmol/L (22-32); Chloride 100 mmol/L (98-107); Estimated Glomerular Filt Rate > 60 mL/min (>60); Glucose 92 mg/dL (80-110); HEMOLYSIS < 15 (0-50); Potassium 4.3 mmol/L (3.4-5.1); Sodium 136 mmol/L (137-145)
[2021-10-11 16:52] LABS: COVID19 -Nasal RAPID Negative (Negative)
== END ==
PROVIDERS: Surgery; PCP Physician Assistant; Referring Provider Internal Medicine Cardiovascular Disease; Visit Provider Internal Medicine Cardiovascular Disease
DX: Z01.812 Encounter for preprocedural laboratory examination (principal); Z51.81 Encounter for therapeutic drug level monitoring; Z79.899 Other long term (current) drug therapy; Z20.822 Contact with and (suspected) exposure to COVID-19
CPT/HCPCS: 36415; 80048; 87635; C9803

== ENCOUNTER 2021-10-14 08:16 | Day surgery (SDC) | payer MEDICARE, OTHER, SELFPAY ==
[2020-11-28 00:50] VITALS: BMI 26.8
[2021-10-14 08:45] VITALS: BP 113/70; PULSE 78; RESP 18; TEMP 36.6; O2SAT 99; BMI 27.2
[2021-10-14] MEDS: SODIUM CHLORIDE 0.9% 1,000 ML 84 ML IV (09:01)
--- NOTE | 2021-10-14 09:14 | PM.HP.1 ---
History of Present Illness History of Present Illness Date Patient Seen: 10/14/21 Time Patient Seen: 09:14 Chief complaint: SDC Narrative: History constipation bleeding colon polyps Patient History Medical History Age-related osteoporosis without current pathological fracture (07/07/17) Asthma (Unknown) Atrial fibrillation (~2004) Atrial flutter (Unknown) Cardiac arrhythmia (Unknown) Cataracts, bilateral (Unknown) Chickenpox (194) Colon polyps (Unknown) Essential hypertension Hemorrhoids (Unknown) History of cardioversion (2008) History of GI bleed (Unknown) Hx of multiple pulmonary nodules (Unknown) Hyperlipemia (Unknown) Hyperlipidemia Hypertension (Unknown) Hypothyroidism Hypothyroidism (Unknown) Measles (~194) Multinodular thyroid (Unknown) Mumps (~194) Osteopenia (Unknown) Osteoporosis (~2014) Urinary incontinence (Unknown) Vertigo (~2012) Surgical History Fibroids (1977) History of cardiac radiofrequency ablation Family & Social History Family History Father Atrial fibrillation Mother Old age Brother No problems noted. Social History: household members none Tobacco & Substance use: Tobacco type cigarettes Smoking Status Former smoker alcohol intake former Substance Use Type does not use Meds Home Medications and Allergies Home Medications Medication Instructions Recorded Confirmed Type cholecalciferol (vitamin D3) 50 2,000 unit PO DAILY ##0 09/18/16 10/14/21 History mcg (2,000 unit) tablet (Vitamin D3) metoprolol tartrate 25 mg tablet 50 mg PO BID ##0 09/18/16 10/14/21 History levothyroxine 100 mcg tablet 100 mcg PO QAM #90 tabs 09/03/18 10/14/21 Rx apixaban 5 mg tablet (Eliquis) 5 mg PO BID 01/10/19 10/14/21 History fluticasone propionate 110 1 puff inhalation BID 01/10/19 10/14/21 History mcg/actuation HFA aerosol inhaler (Flovent HFA) dofetilide 250 mcg capsule 250 mcg PO Q12H 02/23/19 10/14/21 History (Tikosyn) magnesium oxide 400 mg PO DAILY 02/23/19 10/14/21 History levalbuterol tartrate 45 1 - 2 puff inhalation Q8HR PRN 11/27/20 10/14/21 History mcg/actuation aerosol inhaler Wheezing Allergies Allergy/AdvReac Type Severity Reaction Status Date / Time mold [MOLD] Allergy Intermediate LETHARGY Verified 10/14/21 08:43 AND STUFFY HEAD horseradish Allergy Mild Itching Verified 10/14/21 08:43 polyethylene glycol AdvReac Severe Swelling Verified 10/14/21 08:43 and itching in face naproxen [From Aleve] AdvReac Mild rash on Verified 10/14/21 08:43 face Itubfmm-DRV-EdM Reductase AdvReac Mild Nausea Verified 10/14/21 08:43 Inhibitor [Hgyfoup-Tgj-Drk Reductase Inhibitor] POLLEN Allergy Intermediate RUNNY Uncoded 10/14/21 08:43 NOSE, ITCHY WATERY EYES, LACK OF ENERGY DUST Allergy Mild HAY FEVER Uncoded 10/14/21 08:43 Review of Systems Review of Systems ROS: Yes All systems reviewed with the patient and are negative except as otherwise documented Exam Vital Signs (past 8 hours): - 10/14/21 08:45 Temperature 97.8 F Pulse Rate 78 Respiratory Rate 18 Blood Pressure 113/70 Pulse Oximetry 99 Const General: cooperative HENMT Head: normal to inspection Eyes General: appearance normal, both eyes and all related structures Neck Neck: normal visual inspection Chest Chest: normal inspection of the chest Resp Effort & Inspection: normal respiratory effort Cardio Rate: regular rate GI Inspection: normal to inspection Skin General: no rashes or lesions noted Neuro General: patient alert and patient awake Extrem General: normal to inspection and no pedal edema Psych Appearance: grossly normal Assessment & Plan Assessment & Plan narrative: 85-year-old female with a history of colon polyps, constipation and intermittent bleeding. Repeat colonoscopy is pursued today at the patient's request. Time Spent With Patient Critical Care time: I spent a total of [] minutes of critical care time on this patient's care today; this time is exclusive of procedural time.
--- NOTE | 2021-10-14 09:16 | P.OP.PRE_ITS ---
Pre-operative Note COVID-19 COVID-19 status: Negative Result date/Date tested (Pos, Neg/Pending): 10/11/21 Criteria for continued procedure: Possibility delay results in more complex future surgery or treatment Interval Note History & Physical reviewed/Exam performed by Physician: Yes Changes to H&P: Yes H&P completed within 30 days and has changed as indicated here:: Patient di scussed things with her family and wished to proceed with the examination today. ASA Class (for procedural sedation): III
--- NOTE | 2021-10-14 10:27 | PM.OP.COLON ---
Operative Date/Time/Diagnoses Date of procedure: 10/14/21 Time of procedure: 10:28 Pre-op diagnosis: Constipation intermittent rectal bleeding and a personal history of colon polyps Post-op diagnosis: same Procedure & Clinicians Study performed: Colonoscopy Same procedure as scheduled: Yes Indications: Constipation intermittent rectal bleeding and a personal history of colon polyps Surgeon: Tyshawn Tomlinson Procedure Notes SCOAP/Timeout: Done Procedure in detail: After the risks and benefits were explained, written and verbal informed consent was obtained. The patient was brought into the procedure room and placed into the left lateral decubitus position. Please see nurse glue mill operator notes for sedation details. Digital rectal examination was accomplished. The scope was introduced into the patient and advanced under direct visualization to the cecum as identified by the appendiceal orifice and ileocecal valve. The scope was slowly withdrawn to carefully examine the mucosa for any defects or lesions. Comprehensive imaging was accomplished throughout the rectum including the dentate line. The colon was decompressed, the scope was then removed from the patient who tolerated the procedure well. Pediatric colonoscope Bowel prep adequate Scope withdrawal time: 7 minutes Sedation minutes: 18 Specimen(s): none sent Complications: none Impression: Patient had extensive diverticulosis from sigmoid all the way through to ascending colon. She had a redundant colon. No significant polyps mass lesions or inflammatory features identified throughout. Grade 2 internal nonbleeding nonthrombosed hemorrhoids were noted. Endoscopic diagnosis 1. Grade 2 hemorrhoids 2. Pandiverticulosis 3. Redundant colon Post-procedure Plan for aftercare: 1. Continue fiber supplement for soft stools and bowel regularity. 2. Follow-up in primary care as before. Disposition: PACU
[2021-10-14 10:30] VITALS: BP 81/44; PULSE 71; RESP 18; TEMP 36.8; O2SAT 95
[2021-10-14 10:35] VITALS: BP 97/49; PULSE 70; RESP 15; TEMP 36.4; O2SAT 97
[2021-10-14 10:41] VITALS: BP 101/65; PULSE 71; RESP 15; TEMP 36.6; O2SAT 98
[2021-10-14 11:00] VITALS: BP 113/70; PULSE 78; RESP 16; TEMP 36.6; O2SAT 99
== END 2021-10-14 11:02 | disposition home or self-care (01) ==
PROVIDERS: PCP Physician Assistant; Referring Provider Internal Medicine Gastroenterology; Visit Provider Internal Medicine Gastroenterology
PROC: 0DJD8ZZ Inspection of Lower Intestinal Tract, Via Natural or Artificial Opening Endoscopic (ICD-10-PCS; CPT 45378; principal; 2021-10-14 09:30)
DX: K59.00 Constipation, unspecified (principal); K62.5 Hemorrhage of anus and rectum; Z86.010 Personal history of colon polyps; K57.30 Diverticulosis of large intestine without perforation or abscess without bleeding; K64.1 Second degree hemorrhoids
CPT/HCPCS: 45378; J2704

== ENCOUNTER → 2022-03-06 15:05 | Outpatient (CLI) | payer MEDICARE, OTHER, SELFPAY ==
[2020-11-28 00:50] VITALS: BMI 26.8
--- NOTE | 2022-03-06 15:07 | DI.MG.S_ITS ---
BILATERAL DIGITAL SCREENING MAMMOGRAM 3D/2D WITH CAD: 03/06/2022 CLINICAL: Routine screening. Comparison is made to exams dated: 02/01/2021 mammogram, 12/16/2019 mammogram, and 08/27/2018 mammogram - [facility]. Both breasts are heterogeneously dense, which may obscure small masses (category c / 51-75% glandular tissue). Current study was also evaluated with a Computer Aided Detection (CAD) system. There are benign post operative findings in the right breast. No significant masses, calcifications, or other findings are seen in either breast. There has been no significant interval change. IMPRESSION: BENIGN There is no mammographic evidence of malignancy. A 1 year screening mammogram is recommended. Based on the Tyrer Cuzick model (a risk assessment model) the patient's lifetime risk is 0.3% and her 10 year risk is 0.0%. According to the ACR, ACS, and NCCN guidelines, an annual breast MRI exam along with mammogram is recommended if the patient's lifetime risk is 20% or greater. This exam was interpreted at Station ID: [id number]. NOTE: For mammograms, a report in lay terms will be sent to the patient. Approximately 15% of breast malignancies will not be visualized mammographically. In the management of a palpable breast mass, a negative mammogram must not discourage biopsy of a clinically suspicious lesion. Electronically Signed By: Lisa phelps/jose:03/07/2022 11:45:29 letter sent: Normal Exam ACR BI-RADS Category 2: Benign Finding(s) 3342F
== END ==
PROVIDERS: PCP Physician Assistant; Referring Provider Physician Assistant; Visit Provider Physician Assistant
DX: Z12.31 Encounter for screening mammogram for malignant neoplasm of breast (principal)
CPT/HCPCS: 77063; 77067

== ENCOUNTER → 2022-04-01 11:51 | Outpatient (CLI) | payer MEDICARE, OTHER, SELFPAY ==
[2020-11-28 00:50] VITALS: BMI 26.8
[2022-04-01 12:27] LABS: BUN Creatinine Ratio 25.4 (6-22); Blood Urea Nitrogen 17 mg/dL (7-17); Calcium 10.1 mg/dL (8.4-10.2); Carbon Dioxide 28 mmol/L (22-32); Chloride 101 mmol/L (98-107); Estimated Glomerular Filt Rate > 60 mL/min (>60); Glucose 88 mg/dL (80-110); HEMOLYSIS < 15 (0-50); Potassium 4.6 mmol/L (3.4-5.1); Sodium 137 mmol/L (137-145)
== END ==
PROVIDERS: PCP Physician Assistant; Referring Provider Internal Medicine Cardiovascular Disease; Visit Provider Internal Medicine Cardiovascular Disease
DX: Z51.81 Encounter for therapeutic drug level monitoring (principal); Z79.899 Other long term (current) drug therapy; I48.0 Paroxysmal atrial fibrillation
CPT/HCPCS: 36415; 80048

== ENCOUNTER → 2022-10-31 14:05 | Outpatient (CLI) | payer MEDICARE, OTHER, SELFPAY ==
[2020-11-28 00:50] VITALS: BMI 26.8
--- NOTE | 2022-10-31 14:33 | DI.DEXA.S_ITS ---
Bone Density Report Name: HUGO ALVARADO Age: 86 Sex: Female Ethnicity: White Date of : 1935 Indication: postmenopausal osteoporosis; monitoring treatment; Referring Provider: JERRY VELAZQUEZ Study: Bone densitometry was performed. Exam Date: October 31, 2022 Accession number: [id number] Bone Density: Region BMD T-score Z-score Classification AP Spine(L1-L4) 0.737 -2.8 0.1 Osteoporosis Femoral Neck (Left) 0.764 -0.8 1.8 Normal Total Hip (Left) 0.678 -2.2 0.2 Osteopenia Femoral Neck (Right) 0.547 -2.7 -0.2 Osteoporosis Total Hip (Right) 0.620 -2.6 -0.3 Osteoporosis Total Hip Mean 0.649 -2.4 -0.1 Osteopenia World Health Organization criteria for BMD impression classify patients as: Normal (T-score at or above -1.0), Osteopenia (T-score between -1.0 and -2.5), or Osteoporosis (T-score at or below -2.5). 10-year Fracture Risk: FRAX not reported because: Some T-score for Spine Total or Hip Total or Femoral Neck at or below -2.5 Treated for osteoporosis Previous Exams: -- Region Exam Age BMD T-score BMD Change BMD Change Date g/cm2 vs Baseline vs Previous -- AP Spine (L1-L4) 10/31/2022 86 0.737 -2.8 -0.058 (-7.2%)# -0.058 (-7.2%)# 10/15/2020 84 0.795 -2.3 Total Hip(Left) 10/31/2022 86 0.678 -2.2 0.036 (5.6%)# 0.036 (5.6%)# 10/15/2020 84 0.642 -2.5 Total Hip(Right) 10/31/2022 86 0.620 -2.6 -0.022 (-3.4%)# -0.022 (-3.4%)# 10/15/2020 84 0.641 -2.5 -- *Denotes significance at 95% confidence level, LSC for AP Spine = 0.022 g/cm2, LSC for Total Hip = 0.027 g/cm2 # Denotes dissimilar scan types or analysis methods Impression: The patient has osteoporosis, based on the Total Spine T-score. No significant bone loss was observed. Discussion: PATIENT UNDER EDGARDO ATMENT WITH NO SIGNIFICANT BMD LOSS SINCE LAST EXAM. In an untreated patient, BMD typically declines with age. A lack of decline or gain is usually a sign that treatment is efficacious and fracture risk is reduced. It is important to ask patients whether they are taking their medications and to encourage continued and appropriate compliance with their osteoporosis therapies to reduce fracture risk. It is also important to review their risk factors and encourage appropriate calcium and vitamin D intakes, exercise, fall prevention and other lifestyle measures. Follow-Up: Consider a repeat BMD and Vertebral Fracture Assessment (VFA) exam in 2 years or sooner if medically necessary, to reassess this patient's status. Reported by: JUVENAL QUIJANO M.D. on 10/31/2022 2:47:00 PM.
== END ==
PROVIDERS: PCP Physician Assistant; Referring Provider Physician Assistant; Visit Provider Physician Assistant
DX: M81.0 Age-related osteoporosis without current pathological fracture (principal); Z78.0 Asymptomatic menopausal state; Z92.23 Personal history of estrogen therapy
CPT/HCPCS: 77080

== ENCOUNTER → 2023-02-25 11:55 | Outpatient (CLI) | payer MEDICARE, OTHER, SELFPAY ==
[2020-11-28 00:50] VITALS: BMI 26.8
--- NOTE | 2023-02-25 | DI.US.S_ITS ---
PROCEDURE: US ABDOMEN COMPLETE INDICATIONS: ABDOMINAL WALL LUMP;ELEVATED LFTS TECHNIQUE: Real-time scanning was performed of the abdominal and retroperitoneal organs, with image documentation. COMPARISON: [facility], US, US ABDOMEN COMPLETE, 02/08/2019, 14:07. FINDINGS: Liver: Liver is normal in size and homogeneous in echotexture. Main portal vein is patent. Gallbladder: No stones or sludge. Normal wall thickness measuring 1.8 mm. No pericholecystic fluid. Biliary ducts: Intrahepatic bile ducts are non-dilated. Extrahepatic bile duct caliber measures 4 mm. Normal is 6-7 mm or less in diameter, or 10 mm or less post-cholecystectomy. Pancreas: Visualized portions of the pancreas are sonographically normal. Spleen: Spleen is normal in size and homogeneous in echotexture. Kidneys: Kidneys are normal in size and echotexture. Right kidney measures 11.6 cm long; left kidney measures 11.4 cm long. No hydronephrosis or nephrolithiasis. No solid masses. Right renal anechoic simple cyst measuring 1 x 0.7 x 0.8 cm. Left renal anechoic simple cyst measuring 2.5 x 1.9 x 2.3 cm. Aorta: Visualized aorta is normal in caliber at less than 3 cm. Proximal aorta measures 2.6 cm. Mid aorta measures 1.9 cm. Distal aorta measures 1.6 cm. Iliacs: Proximal common iliac arteries are normal in caliber at less than 2.5 cm. IVC: Intrahepatic inferior vena cava is patent. Miscellaneous: Isoechoic solid nodule in the right lower quadrant corresponding to palpable lump measuring 1.8 x 2.1 x 1.1 cm with no internal vascularity. IMPRESSION: 1. Normal sonographic appearance of the liver. 2. Isoechoic solid nodule in the right lower quadrant corresponding to palpable lump measuring 1.8 x 2.1 x 1.1 cm with no internal vascularity most compatible with a benign lipoma. 3. Proximal aorta is ectatic measuring 2.6 cm. Recommend repeat ultrasound imaging in 5 years. Vascular incidental findings followup recommendations: ACR White Paper AAA imaging followup intervals: AAA defined as 3.0 cm or more luminal diameter. * 2.5-2.9 cm (ectasia): 5 year followup. * 3.0-3.4 cm: 3 year followup. * 3.5-3.9 cm: 3 year followup. * 4.0-4.4 cm: 1 year followup. * 4.5-4.9 cm: 6 month followup. Consider surgery/endovascular Rx. * 5.0-5.5 cm: 3-6 month followup. Consider surgery/endovascular Rx. Dictated by: Alexandro Olivera M.D. on 02/25/2023 at 17:01 Approved by: Alexandro Olivera M.D. on 02/25/2023 at 17:07
== END ==
PROVIDERS: PCP Physician Assistant; Referring Provider Physician Assistant; Visit Provider Physician Assistant
DX: R19.03 Right lower quadrant abdominal swelling, mass and lump (principal); I77.811 Abdominal aortic ectasia; R79.89 Other specified abnormal findings of blood chemistry; R10.811 Right upper quadrant abdominal tenderness
CPT/HCPCS: 76700

== ENCOUNTER → 2024-01-12 08:31 | Outpatient (CLI) | payer MEDICARE, OTHER, SELFPAY ==
[2023-07-21 08:22] VITALS: BMI 26.8
--- NOTE | 2024-01-12 08:33 | DI.RAD.S_ITS ---
PROCEDURE: XR CERVICAL SPINE 2V OR 3V INDICATIONS: NECK PAIN TECHNIQUE: 3 view(s) of the cervical spine were acquired. COMPARISON: [facility], CR, XR CERVICAL SPINE 2V OR 3V, 11/28/2020, 10:42. FINDINGS: Bones: No fractures or dislocations to the T1 level. The lateral masses of C1 appear intact on the odontoid view. No suspicious bony lesions. Multilevel degenerative changes. Uncovertebral arthropathy. Soft tissues: No prevertebral soft tissue swelling. IMPRESSION: No displaced fracture or traumatic subluxation. Dictated by: Kayla Landry M.D. on 01/12/2024 at 14:31 Approved by: Kayla Landry M.D. on 01/12/2024 at 14:32
== END ==
PROVIDERS: PCP Physician Assistant; Referring Provider Physician Assistant; Visit Provider Physician Assistant
DX: M54.12 Radiculopathy, cervical region (principal); G89.29 Other chronic pain; M54.2 Cervicalgia
CPT/HCPCS: 72040

== ENCOUNTER → 2024-11-03 12:20 | Outpatient (CLI) | payer MEDICARE, OTHER, SELFPAY ==
[2023-07-21 08:22] VITALS: BMI 26.8
--- NOTE | 2024-11-03 12:21 | DI.MG.S_ITS ---
MM screening mammo BI: 11/03/2024. BI-RADS: 2 CLINICAL: 88-year old female for bilateral screening mammogram. No Tyrer-Cuzick risk score calculation due to patient's age being over 85 years old. No personal or first-degree family history of breast cancer. The patient had a prior right breast biopsy. PRIOR EXAMS 03/06/2022, 02/01/2021, 12/16/2019, 08/27/2018. MAMMOGRAPHY TECHNIQUE: 2D and 3D (tomosynthesis) digital mammographic views obtained, with additional images as needed for full coverage. Current study was also evaluated with a Computer Aided Detection (CAD) system. DENSITY C. The breasts are heterogeneously dense, which may obscure small masses. MAMMOGRAPHY FINDINGS Right: Benign-appearing post-surgical changes noted on the right. There are no suspicious masses, calcifications, or other findings in the breast. No significant change from comparison. Left: No suspicious mass, asymmetry, microcalcification, or other abnormality seen. No significant change from comparison. IMPRESSION: Right * No evidence of malignancy with benign findings. Left * No evidence of malignancy. RECOMMENDATIONS Bilateral * Annual screening mammography. OVERALL ASSESSMENT CATEGORY BI-RADS-2: Benign. The [employer] recommends annual screening mammography beginning at age 40 for women with average risk of breast cancer. ELECTRONICALLY SIGNED: Tia Alarcon M.D. on 11/03/2024 at 10:07:39 PM PT Interpreting Station ID: [id number]
--- NOTE | 2024-11-03 12:22 | DI.RAD.S_ITS ---
PROCEDURE: XR DEXA AXIAL SKELETON INDICATIONS: SCREENING COMPARISON: [facility], , XR DEXA AXIAL SKELETON, 10/31/2022, 14:33. FINDINGS: Lumbar Spine: Bone mineral density 0.752 (previously 0.737) g/cm2, T score -2.7 (previously-2.8). Left Femoral Neck: Bone mineral density 0.530 (previously 0.764) g/cm2, T score -2.9 (previously-0.8). Left Hip: Bone mineral density 0.620 (previously 0.678) g/cm2, T score -2.6 (previously-2.2). Fracture Risk Calculation (when applicable): 10-year fracture risk of a major osteoporotic fracture 50 percent and of a hip fracture 40 percent. IMPRESSION: Osteoporosis Follow-up guidelines as follows: Osteoporosis: Consider a repeat DEXA and Vertebral Fracture Assessment (VFA) exam in 2 years or sooner if medically necessary, to reassess this patient's status. Osteopenia: Consider a repeat DEXA in 2-3 years to reassess this patient's status, or if there is a new clinical indication. Normal: Consider a repeat DEXA in 5 years or sooner, or if there is a new clinical indication. All treatment decisions require clinical judgment and consideration of individual patient factors, including patient preferences, comorbidities, previous drug use, risk factors not captured in the FRAX model (e.g., frailty, falls, vitamin D deficiency, increased bone turnover, interval significant decline in bone density ) and possible under- or over-estimation of fracture risk by FRAX. In addition, the NOF Guide recommends that FDA-approved medical therapies be considered in postmenopausal women and men age >= 50 years with a: * Hip or vertebral (clinical or morphometric) fracture * T-score of <=-2.5 at the spine or hip * Ten-year fracture probability by FRAX of >= 3% for hip fracture or >=20% for major osteoporotic fracture. Dictated by: Rao Whitfield M.D. on 11/05/2024 at 23:08 Approved by: Rao Whitfield M.D. on 11/05/2024 at 23:10
== END ==
LOC: MAMMO 12:21
PROVIDERS: PCP Physician Assistant; Referring Provider Physician Assistant; Visit Provider Physician Assistant
DX: Z12.31 Encounter for screening mammogram for malignant neoplasm of breast (principal); M81.0 Age-related osteoporosis without current pathological fracture; R92.333 Mammographic heterogeneous density, bilateral breasts
CPT/HCPCS: 77063; 77067; 77080

== ENCOUNTER → 2025-03-24 09:51 | Outpatient (CLI) | payer MEDICARE, OTHER, SELFPAY ==
[2023-07-21 08:22] VITALS: BMI 26.8
[2025-03-24 10:29] LABS: Add Manual Diff / Slide Review NO; Hematocrit 39.7 % (36-46); Hemoglobin 13.6 g/dL (12.0-16.0); Lymphocytes Absolute Auto 1200 /uL (1100-4500); Mean Corpuscular HGB Conc 34.3 % (30-36); Mean Corpuscular Hemoglobin 30.6 PG (26-34); Mean Corpuscular Volume 89.3 fL (80-100); Platelet Count 194 X10^3/uL (150-400)
[2025-03-24 10:49] LABS: Appearance Urine UA CLEAR; Bilirubin Urine UA NEGATIVE (NEGATIVE); Color Urine UA YELLOW; Glucose Urine UA NEGATIVE (Negative); Ketones Urine UA NEGATIVE (NEGATIVE); Leukocyte Esterase Urine UA NEGATIVE (NEGATIVE); Nitrite Urine UA NEGATIVE (Negative); Occult Blood Urine UA TRACE-INTACT (Negative); Protein Urine UA NEGATIVE (Negative); Specific Gravity Urine UA 1.010 (1.000-1.035); Urobilinogen Urine UA 0.2 E.U./dL (0.2)
[2025-03-24 10:52] LABS: pH Urine UA 7.0 (4.5-8.0)
[2025-03-24 10:55] LABS: Culture Indicated Urine Cult Not Indicated
[2025-03-24 11:02] LABS: Alanine Aminotransferase 43 IU/L (<35); Albumin 4.3 g/dL (3.5-5.0); Albumin Globulin Ratio 1.5 (1.0-2.8); Alkaline Phosphatase 68 U/L (38-126); Blood Urea Nitrogen 22 mg/dL (7-17); Calcium 10.2 mg/dL (8.4-10.2); Carbon Dioxide 26 mmol/L (22-32); Chloride 101 mmol/L (98-107); Estimated Glomerular Filt Rate > 60 mL/min (>60); Globulin 2.8 g/dL (1.7-4.1); Glucose 94 mg/dL (70-99); HEMOLYSIS 31 (0-50); Potassium 4.8 mmol/L (3.4-5.1); Sodium 136 mmol/L (137-145); Total Protein 7.1 g/dL (6.3-8.2)
[2025-03-24 11:17] LABS: Vitamin D 25 Hydroxy (D3) 38.9 ng/mL (30.0-100.0)
[2025-03-24 11:32] LABS: TSH w/ Reflex to FT4 0.81 uIU/mL (0.47-4.68)
== END ==
PROVIDERS: PCP Family Medicine; Referring Provider Family Medicine; Visit Provider Family Medicine
DX: R35.0 Frequency of micturition (principal); E78.5 Hyperlipidemia, unspecified; E03.9 Hypothyroidism, unspecified; M81.0 Age-related osteoporosis without current pathological fracture; I48.20 Chronic atrial fibrillation, unspecified
CPT/HCPCS: 36415; 80053; 81001; 82306; 84443; 85025